=== PATIENT | male | born 1935 | race Caucasian/White ===

== ENCOUNTER 2018-04-06 09:45 | Inpatient (IN) | payer OTHER, MEDICAID ==
[~2018-04-06] VITALS: Ht 180.3 cm; Wt 72.6 kg
[~2018-04-06 09:45] MED LIST: ACET-2619 GT; ASCO500T45 GT; BISA10SU2 RC; COL250 GT; EPOE10002 IJ; FER325 GT; LACT1CAP4 GT; LISI-420 GT; LORA10TA60 GT; MAGN400S GT; NA P135N9 RC; ONDA4TAB GT; PANT40PD1 GT; PROSTAT 64 GT; VIC GT; [UNRECOGNIZED DRUG - CODE] GT; [UNRECOGNIZED DRUG - CODE] GT; [UNRECOGNIZED DRUG - CODE] TP
--- NOTE | 2018-04-06 09:49 | NUR ---
PT BIBA ALS TO BED 10
[2018-04-06 09:50] VITALS: BP 177/79
--- NOTE | 2018-04-06 09:50 | NUR ---
82y/m brought in by ems from [facility]. pt c/o persistant fever x yesterday, tachypnic, FULL CODE, vent setting AC 12 , 450, peep 5, fio2 40%. DENIES N/V/D; SKIN IS PINK/WARM/DRY; AAOX3; PATIENT STATES PAIN OF 0/10 AT THIS TIME; VSS; PATIENT POSITIONED FOR COMFORT; HOB ELEVATED; BEDRAILS UP X2; BED DOWN. ER MD MADE AWARE OF PT STATUS.
[2018-04-06 09:55] VITALS: BP 114/75
--- NOTE | 2018-04-06 09:55 | NUR ---
PT BIB EMS PLACED ON CARESCAPE VENT SETTINGS PER FACILITY PTS TRACH PORTEX 6 IS SECURE RECEIVER STOCKER OBTAINED VENT PLUGGED INTO RED OUTLET BMV HOB PT IN HF QUIET
--- NOTE | 2018-04-06 09:55 | NUR ---
Vent settings: Fio2 39,peep 4, peak pressure 28, minute volume 10.7, tidal volume 47v, respiratory rate 23
[2018-04-06] MEDS ORDERED: LORA-476 GT (10:33)
[2018-04-06] MEDS ORDERED: VITD1000 GT (10:33)
[2018-04-06] MEDS ORDERED: GLIM4TAB2 GT (10:33)
[2018-04-06] MEDS ORDERED: ALPOS LEFT EYE (10:33)
[2018-04-06] MEDS ORDERED: CALC500C17 PO (10:33)
[2018-04-06] MEDS ORDERED: OMEP20EC6 GT (10:33)
[2018-04-06] MEDS ORDERED: METF1000 GT (10:33)
[2018-04-06] MEDS ORDERED: PREG150C GT (10:33)
[2018-04-06] MEDS ORDERED: TRAV5SOL LEFT EYE (10:33)
[2018-04-06] MEDS ORDERED: ASPI81EC98 GT (10:33)
[2018-04-06] MEDS ORDERED: DULO60EC GT (10:33)
[2018-04-06] MEDS ORDERED: FURO-572 GT (10:33)
[2018-04-06] MEDS ORDERED: NITR0.4S23 SL (10:33)
[2018-04-06] MEDS ORDERED: ATEN25TA7 GT (10:33)
[2018-04-06] MEDS ORDERED: MELA5TAB5 GT (10:33)
[2018-04-06] MEDS ORDERED: SLIDE SUBQ (10:33)
[2018-04-06] MEDS ORDERED: MAGN400T7 GT (10:33)
[2018-04-06] MEDS ORDERED: NACL 0.9% 500 ML IV SCH (10:47)
[2018-04-06] MEDS ORDERED: PIPERACILLIN/TAZOBACTAM 3.375 GM in DEXTROSE 5% 50 ML IV ONE (10:50)
[2018-04-06] MEDS ORDERED: ACETAMINOPHEN 650 MG SUPP RC ONE (10:56)
[2018-04-06] MEDS ORDERED: ACETAMINOPHEN 325 MG SUPP RC ONE (10:57)
--- NOTE | 2018-04-06 11:27 | NUR ---
XRAY AT BEDSIDE
[2018-04-06] MEDS ORDERED: PIPERACILLIN/TAZOBACTAM 3.375 GM VIAL IV ONE (11:32)
--- NOTE | 2018-04-06 11:40 | NUR ---
lab at bedside
[2018-04-06] MEDS ORDERED: NACL 0.9% 1,000 ML IV ONE (12:20)
[2018-04-06 12:29] VITALS: BP 52/20
[2018-04-06 12:39] LABS: PROTHROMBIN TIME 11.5 secs (10.8-13.4)
[2018-04-06 12:49] LABS: HEMATOCRIT 40.7 % (36-52); HEMOGLOBIN 12.6 g/dL (12.0-18.0); MEAN CORPUSCULAR HEMOGLOBIN 26 pg (27-31); MEAN CORPUSCULAR HGB CONC 31 g/dL (33-37); MEAN CORPUSCULAR VOLUME 83.2 fL (80-94); PLATELET COUNT (AUTO) 578 K/uL (140-450); RED BLOOD CELL COUNT(AUTO) 4.89 MIL/uL (4.20-6.10); RED CELL DISTRIBUTION WIDTH 18.6 % (11.6-13.7)
[2018-04-06 12:56] LABS: WHITE BLOOD COUNT (AUTO) 35.3 K/uL (4.8-10.8)
--- NOTE | 2018-04-06 12:58 | NUR ---
Patient appears to be resting comfortably in bed. Vital Signs within normal limits. Respirations even and unlabored.
[2018-04-06 13:06] LABS: POTASSIUM 4.7 mmol/L (3.5-5.1); SODIUM SERUM 136 mmol/L (136-145)
[2018-04-06 13:07] LABS: LYMPHOCYTES % (MANUAL) 4 % (20-46); MONOCYTES % (MANUAL) 4 % (5-12)
[2018-04-06 13:07] LABS: ANION GAP 12.3 (8-16); CARBON DIOXIDE 28.4 mmol/L (21-32); CHLORIDE 100 mmol/L (98-107); CREATININE 1.1 mg/dL (0.7-1.3); GLUCOSE 213 mg/dL (74-106); UREA NITROGEN, BLOOD 36 mg/dL (7-18)
[2018-04-06 13:10] LABS: ASPARTATE AMINOTRANSFERASE 7 U/L (15-37)
[2018-04-06 13:11] LABS: ALBUMIN 2.9 g/dL (3.4-5.0)
[2018-04-06 13:26] LABS: TOTAL BILIRUBIN 0.4 mg/dL (0.0-1.0)
[2018-04-06] MEDS ORDERED: ZOLPIDEM 5 MG TAB PO PRN (14:20)
[2018-04-06] MEDS ORDERED: HYDROcodone/APAP 5/325 MG 1 TAB TAB PO PRN (14:20)
[2018-04-06] MEDS ORDERED: DOCUSATE SODIUM 100 MG GELCAP PO PRN (14:20)
[2018-04-06] MEDS ORDERED: ACETAMINOPHEN 325 MG TAB PO PRN (14:20)
[2018-04-06] MEDS ORDERED: ONDANSETRON 4 MG/2 ML VIAL IM/IVP PRN (14:20)
--- NOTE | 2018-04-06 14:21 | NUR ---
Patient appears to be resting comfortably in bed. Vital Signs within normal limits. Respirations even and unlabored.
[2018-04-06 14:28] LABS: APPEARANCE,URINE CLEAR (CLEAR); BILIRUBIN,URINE NEGATIVE (NEGATIVE); BLOOD, URINE TRACE-I (NEGATIVE); COLOR,URINE YELLOW (YELLOW); LEUKOCYTE ESTERASE ,URINE NEGATIVE (NEGATIVE); NITRITE, URINE NEGATIVE (NEGATIVE); UGLUCOSE NEGATIVE (NEGATIVE)
[2018-04-06 14:43] LABS: RBC,URINE 0-5 (RARE) /HPF (0-5); WBC,URINE NONE SEEN /HPF (0-5)
[2018-04-06 14:47] VITALS: BP 110/42
[2018-04-06] MEDS ORDERED: ACETAMINOPHEN 325 MG TAB GT PRN (15:30)
--- NOTE | 2018-04-06 17:00 | NUR ---
Patient will be admitted to care of . Admited to tele floor. Will go to [id number]. Belongings list completed. Report to merritt amrina.
[2018-04-06 17:11] LABS: CHOL/HDL RATIO 2.5 (1-4.5); MAGNESIUM 2.7 mg/dL (1.8-2.4); PHOSPHORUS 2.5 mg/dL (2.5-4.9); THYROID STIMULATING HORMONE 3.86 uIU/mL (0.34-3.74)
[2018-04-06 17:15] VITALS: BP 134/76
--- NOTE | 2018-04-06 17:20 | NUR ---
RECEIVED PT REPORT FROM ER NURSE. DX SEVERE SEPSIS. LATEST LACTIC ACID 2.8. PT IS WITH TRACH TO VENT, SETTING FIO2 40%, RR12, TV 450, PEEP 5. O2 SAT 98%. PLACE PT ON TELE MONITOR. NO S/S ACUTE DISTRESS NOTED AT THIS TIME. PT IS AWAKE,ALERT AND ORIENTED X3. NON-VERBAL. IV NOTED TO R AC 20G, ASYMPTOMATIC. SKIN INTACT. VITALS TAKEN, MRSA SWAB DONE. PLAN OF CARE DISCUSSED. BED IN LOWEST POSITION, SIDE RAILS UP X2. CALL LIGHT WITHIN REACH. WILL CONTINUE TO MONITOR.
[2018-04-06] MEDS: NACL 0.9% 1,000 ML IV SCH (17:40)
--- NOTE | 2018-04-06 17:55 | NUR ---
PT IS ABLE TO MOVE ALL EXTREMITIES. PT CAN FOLLOW SIMPLE COMMANDS. PT HAD BLACK, DARK GREEN LIQUID STOOL. PT WAS CLEANED. PT TOLERATE WELL.
[2018-04-06] MEDS: HYDROcodone/APAP 5/325 MG 1 TAB TAB GT PRN (18:18)
--- NOTE | 2018-04-06 18:18 | NUR ---
CALLED THE RESIDENT, ASKING IF C-DIFF CULTURE IS NEEDED FOR THE PT. STATED JUST STOOL CULTURE. Addendum: 04/06/18 at 2002 by Placido Cazares RN DR ONOFRE.
--- NOTE | 2018-04-06 18:20 | NUR ---
G TUBE RESIDUAL 0ML. NORCO GIVEN, FLUSHED WITH 30 ML H2O PT TOLERATED WELL.
--- NOTE | 2018-04-06 19:13 | NUR ---
RECEIVED PT REPORT FROM ER NURSE. DX SEVERE SEPSIS. LATEST LACTIC ACID 2.8. PT IS WITH TRACH TO VENT, SETTING FIO2 40%, RR12, TV 450, PEEP 5. O2 SAT 98%. PLACE PT ON TELE MONITOR. NO S/S ACUTE DISTRESS NOTED AT THIS TIME. PT IS AWAKE,ALERT AND ORIENTED X3. NON-VERBAL. IV NOTED TO R AC 20G, ASYMPTOMATIC. SKIN INTACT. VITALS TAKEN, MRSA SWAB DONE. PLAN OF CARE DISCUSSED. BED IN LOWEST POSITION, SIDE RAILS UP X2. CALL LIGHT WITHIN REACH. WILL CONTINUE TO MONITOR. Addendum: 04/06/18 at 1915 by Placido Cazares RN PLEASE DISCARD, WRONG TIME.
--- NOTE | 2018-04-06 19:25 | NUR ---
ENDORSED PT TO MARINE DRAFTER RNEMILIANO. PT IN STABLE CONDITION.
--- NOTE | 2018-04-06 19:26 | NUR ---
RECEIVED PT FROM LUCY RN PT NICARAGUAN SPEAKER AAOX2 PT FOLLOW SIMPLE COMMANDAS TRACH TO VENT DEPENDENT FIO2 40% RR 12 TV 450 PEEP 5 NOT RESP DISTRESS NOTED RESP THERAPY IS HERE AND SUCTION THE PT G TUBE RESIDUAL ZERO G TUBE FEEDING WELL TOLERATED ON TELEMETRY SR, SEQUENTIAL STOCKING IV ON RT AC INFUSING WELL ON TELEMTRY SR PT REPOSITIONED NOT DISTRESS NOTED AT THIS TIME
--- NOTE | 2018-04-06 19:40 | NUR ---
RECEIVED PT STABLE ON VENT SUPPORT AT DOCUMENTED SETTINGS, SUCTIONED SMALL AMOUNTS OF THICK PANG SECRETIONS, NO RESP DISTRESS OR SOB NOTED AT THIS TIME, PT CAN RESPOND TO COMMANDS AND COMFORTABLE, PORTEX 6 TRACH SECURED/PATENT/MIDLINE, ALARMS SET AND AUDIBLE, AMBU BAG AT BEDSIDE, VENT PLUGGED INTO RED OUTLET, PULSE OX ON, WILL CONT TO MONITOR.
[2018-04-06 20:00] VITALS: BP 92/46
[2018-04-06] MEDS: BLOOD GLUCOSE MONITORING 1 DEV DEV FS SCH (20:32)
[2018-04-06] MEDS: INSULIN LISPRO SLIDING SCALE 100 UNITS/ML VIAL SUBQ PRN (20:33)
[2018-04-06] MEDS ORDERED: PIPERACILLIN/TAZOBACTAM 3.375 GM in DEXTROSE 5% 50 ML IV SCH (21:00)
--- NOTE | 2018-04-06 21:00 | NUR ---
PT REPOSITIONED Q2H LINEN CHANGED PT HAS A BM BLACK STOOL NOT DISTRESS NOTED AND RESP THERAPY IS HERE AND DECREASE FIO2 AT 35%
[2018-04-06] MEDS: PIPER/TAZO 3.375GM/D5W PREMIX 50 ML IV SCH (21:01)
[2018-04-06] MEDS: PREGABALIN 50 MG CAP GT SCH (21:02)
[2018-04-06] MEDS: BRIMONIDINE TARTRATE 0.2% OP 5 ML BTL BOTH EYES SCH (21:03)
[2018-04-06] MEDS: metFORMIN 500 MG TAB GT SCH (21:04)
[2018-04-07] VITALS: BP 105/53
--- NOTE | 2018-04-07 | NUR ---
HOB 30 DEGREE PT ON CLOSE OBSERVATION REPOSIONED Q2H TRACH TO VENT FIO2 35% NOT SOB NOTED ON TELE SR
[2018-04-07] MEDS: NACL 0.9% 1,000 ML IV SCH ×3 (01:01→16:19)
--- NOTE | 2018-04-07 01:06 | NUR ---
PT SLEEPING QUIET TRACH TO CONNOR REMAIN SAME SETTING NOT DISTRESS NOTED 02 SAT 98
[2018-04-07 04:00] VITALS: BP 104/58
--- NOTE | 2018-04-07 04:00 | NUR ---
HOB 30 DEGREE TRACH TO VENT REMAIN SAME SETTING SUCTIONED NECESSASRY ORAL CARE GIVEN WITH VAP KIT ON TELEMETRY SR PT HAS G TUBE FEEDING WELL TOLERATED PT HAS A BIG BM SPONGE BATH GIVEN
[2018-04-07] MEDS: PIPER/TAZO 3.375GM/D5W PREMIX 50 ML IV SCH ×3 (04:27→21:13)
[2018-04-07] MEDS: HYDROcodone/APAP 5/325 MG 1 TAB TAB GT PRN ×3 (04:27→16:28)
[2018-04-07] MEDS: BRIMONIDINE TARTRATE 0.2% OP 5 ML BTL BOTH EYES SCH ×3 (04:54→21:01)
--- NOTE | 2018-04-07 05:08 | NUR ---
PT REPOSITIONED Q2H TRACH TO VENT REMAIN SAME SETTING ON TELEMETRY SR IV ON RT AC INFUSING WELL
[2018-04-07] MEDS: INSULIN LISPRO SLIDING SCALE 100 UNITS/ML VIAL SUBQ PRN ×3 (05:59→21:15)
[2018-04-07] MEDS: BLOOD GLUCOSE MONITORING 1 DEV DEV FS SCH ×4 (06:01→21:01)
--- NOTE | 2018-04-07 06:08 | NUR ---
BLOOD SUGAR TEST 190 CVERAGE WITH 2 UNITS SUBQ HUMALOG PRTOCOL
--- NOTE | 2018-04-07 06:23 | NUR ---
PT REMAIN STABLE NOT DISTRESS NOTED TRACH TO VENT REMAIN SAME SETTING ON TELEMETRY SR REPOSITIONED Q2H G TUBE FEEDING WELL TOLERATED
--- NOTE | 2018-04-07 06:24 | NUR ---
REC'D PT ON CARESCAPE VENT SETTINGS AC 12 VT 450 PEEP 5 FIO2 35% ALARMS ON AND AUDIBLE AND AMBU BAG AT HOB AND VENT IS PLUGGED INTO RED OUTLET, NO HHN NEEDED AT THIS TIME, SXN PT MODERATE AMT OF THICK YELLOW SECRETIONS, B\S ARE CLEAR BILATERALLY, PT IS TRACH WITH PORTEX 6 AND SKIN INTEGRITY IS INTACT PT IS SLEEPING WITH NO SIGNS OF DISTRESS NOTED AT THIS TIME
[2018-04-07 07:20] LABS: CARBON DIOXIDE 24.2 mmol/L (21-32); CHLORIDE 107 mmol/L (98-107); CREATININE 0.9 mg/dL (0.7-1.3); GLUCOSE 198 mg/dL (74-106); POTASSIUM 4.2 mmol/L (3.5-5.1); SODIUM SERUM 142 mmol/L (136-145); UREA NITROGEN, BLOOD 32 mg/dL (7-18)
--- NOTE | 2018-04-07 07:20 | NUR ---
PT IS SLEEPING SOUNDLY. NO SIGNS OF DISTRESS. TRACH TO VENT DEP. VENT SETTING: FIO2 35%, VT 450, RATE 12, FLOW 50ML; PEEP 5. PT'S BREATHING IS AT 19/MIN. GTUBE FEEDING INFUSING. GLUCERNA 1.2 40ML/HR, H2O AT 100ML Q [address] PL[address] LIGHT CHARLES URINE, 200ML IN BAG. IV R AC 20G NS AT 120ML INFUSING. SCD'S IN PLACE. PER DAIRY SPECIALIST NURSE, SKIN IS INTACT. HAD LAST BM THIS MORNING X2 LARGE- BLACK STOOL. PER DAIRY SPECIALIST NURSE, PT IS ABLE TO MOUTH WORDS IN [place]. WILL BE BACK FOR V/S.
--- NOTE | 2018-04-07 07:45 | NUR ---
PT IS AWAKE AND ORIENTED. INTRODUCED MYSELF AND UPDATED THE BOARD. V/S WITHIN NORMAL RANGE. PT C/O GENERALIZED PAIN. WOULD LIKE PAIN MEDS ALONG WITH MORNING MEDS. PER NUTRITION INSTRUCTOR NURSE, LAST [place] WAS AT 0427. WILL CONTINUE TO MONITOR PT.
[2018-04-07 08:00] VITALS: BP 110/55
--- NOTE | 2018-04-07 08:00 | NUR ---
Patient's Plan of Care was discussed and reviewed with SAWMILL OR TIMBER YARD WORKER: TANIA
--- NOTE | 2018-04-07 08:42 | NUR ---
PATIENT HAS BEEN SCREENED AND CATEGORIZED HIGH NUTRITION RISK. PATIENT WILL BE SEEN WITHIN 1-2 DAYS OF ADMISSION. 04/07/18 04/08/[address]
--- NOTE | 2018-04-07 08:58 | NUR ---
VENT CHECK, AIRWAY IS PATENT AND PT IS SLEEPING
[2018-04-07] MEDS: PREGABALIN 50 MG CAP GT SCH ×2 (09:16→21:01)
[2018-04-07] MEDS: LACTOBACILLUS RHAMNOSUS GG 1 EACH CAP GT SCH (09:16)
[2018-04-07] MEDS: ASPIRIN 81 MG TAB.CHEW GT SCH (09:17)
[2018-04-07] MEDS: ATENOLOL 25 MG TAB GT SCH (09:17)
[2018-04-07] MEDS: PANTOPRAZOLE 40 MG INJ VIAL IV SCH (09:18)
[2018-04-07] MEDS: GLIMEPIRIDE 2 MG TAB GT SCH (09:18)
[2018-04-07] MEDS: FUROSEMIDE 40 MG/5 ML ORAL SOL UDC GT SCH (09:20)
[2018-04-07] MEDS: metFORMIN 500 MG TAB GT SCH ×2 (09:24→22:06)
--- NOTE | 2018-04-07 09:48 | NUR ---
PT SOILED. VERY LITTLE BM. NOT ENOUGH FOR C-DIFF SAMPLE. CLEANED AND CHANGED AND REPOSITIONED WITH COAL PIPELINE OPERATOR. PT IS CLEAN AND DRY AND COMFORTABLE. ADMINISTERED MORNING MEDS. CHECKED FOR PLACEMENT, RESIDUAL-0, AND PATENCY. TOLERATED WELL. TOTAL FLUID IN 180ML. WILL CONTINUE TO MONITOR PT.
--- NOTE | 2018-04-07 10:33 | NUR ---
vent check, no sxn needed airway is patent and pt is sleeping
[2018-04-07 12:00] VITALS: BP 95/48
--- NOTE | 2018-04-07 12:30 | NUR ---
TROUBLE SHOOTER RECOMMENDATION: INCREASE FEEDING GRADUALLY TO 70ML/HR. WILL NOTIFY
[2018-04-07 12:55] LABS: BASOPHILS % (AUTO) 0.2 % (0.0-2.0); EOSINOPHILS # (AUTO) 0.2 K/uL (0-0.4); EOSINOPHILS % (AUTO) 0.9 % (0.0-4.0); HEMATOCRIT 31.7 % (36-52); HEMOGLOBIN 9.8 g/dL (12.0-18.0); LYMPHOCYTES # (AUTO) 1.5 K/uL (2.0-11.5); LYMPHOCYTES % (AUTO) 7.9 % (20.5-51.1); MEAN CORPUSCULAR HEMOGLOBIN 25 pg (27-31); MEAN CORPUSCULAR HGB CONC 31 g/dL (33-37); MEAN CORPUSCULAR VOLUME 82.4 fL (80-94); MONOCYTES # (AUTO) 0.9 K/uL (0.8-1.0); NEUTROPHILS # (AUTO) 16.1 K/uL (1.8-7.7); PLATELET COUNT (AUTO) 401 K/uL (140-450); RED BLOOD CELL COUNT(AUTO) 3.85 MIL/uL (4.20-6.10); RED CELL DISTRIBUTION WIDTH 18.2 % (11.6-13.7); WHITE BLOOD COUNT (AUTO) 18.7 K/uL (4.8-10.8)
--- NOTE | 2018-04-07 14:06 | NUR ---
04/07/18 RD INITIAL ASSESSMENT COMPLETED PLEASE REFER TO NUTRITION ASSESSMENT UNDER CARE ACTIVITY FOR ESTIMATED NUTRITIONAL NEEDS. 1. RECOMMEND INCREASING GLUCERNA TO 70 ML/HR BY 10 ML/HR Q6H. -THIS PROVIDES 1666 ML, 2000 KCAL, 100 GM, MEETING 100% OF ESTIMATED KCAL NEEDS AND 85% OF PROTEIN NEEDS. 2. RECOMMEND WATER FLUSH [address] TO FOLLOW-UP 2-3 DAYS, HIGH RISK DIDIER ALMODOVAR RD
--- NOTE | 2018-04-07 14:21 | NUR ---
SON AND DAUGHTER IN LAW IS HERE FOR VISIT. O2 SAT DOWN TO 88%. SUCTIONED PT. NOW BACK TO 100%. WILL CONTINUE TO MONITOR PT. Addendum: 04/07/18 at 1424 by Lisa Oleary RN INCREASE FEEDING 10ML.
--- NOTE | 2018-04-07 15:09 | NUR ---
PT SLEEPING SOUNDLY. SON AND DAUGHTER IN LAW LEFT. NO SIGNS OF DISTRESS. WILL CONTINUE TO MONITOR PT.
--- NOTE | 2018-04-07 15:32 | NUR ---
VENT CHECK, NO SXN REQUIRED PT GETTING BATH
[2018-04-07 16:00] VITALS: BP 101/50
--- NOTE | 2018-04-07 16:43 | NUR ---
VENT CHECK, NO SXN NEEDED AIRWAY IS PATENT PT WOULD NOT ALLOW TRACH CARE TO BE DONE WAS HITTING MY HAND AWAY FROM HIM
--- NOTE | 2018-04-07 17:04 | NUR ---
PT SLEEPING SOUNDLY. NO SIGNS OF DISTRESS. WILL CONTINUE TO MONITOR PT.
[2018-04-07] MEDS: MUPIROCIN 2% OINT 22 GM TUBE TP SCH (18:58)
[2018-04-07] MEDS: CHLORHEXADINE GLUC 2% CLOTH TP SCH (18:59)
--- NOTE | 2018-04-07 18:59 | NUR ---
ADMINISTERED BACTROBAN AND CHG WIPE. BACTROBAN JUST ARRIVED ON THE FLOOR. PT TOLERATED WELL. WILL CONTINUE TO MONITOR PT.
--- NOTE | 2018-04-07 19:17 | NUR ---
ENDORSED PT TO THE PROJECT SCIENTIST NURSE AT BEDSIDE FOR CONTINUITY OF CARE. PT IS IN STABLE CONDITION. R/T AT BEDSIDE.
[2018-04-07 20:00] VITALS: BP 110/66
--- NOTE | 2018-04-07 20:00 | NUR ---
SEEN PT AWAKE, ALERT, ORIENTED, APHASIC BY MOUTHS WORDS. PT ABLE TO RESPOND BY NODDING AND SMILING TO CONVERSATION. INITIAL ASSESSMENT DONE. VITAL SIGNS CHECKED. PT APPEARS NOT TO BE IN DISTRESS. PT REPOSITIONED FOR COMFORT. SAFETY REINFORCED. PT ON ISOLATION.
--- NOTE | 2018-04-07 21:00 | NUR ---
PT'S IV APPEARS RED BUT FLUSHING. NEW IV IN PLACED ON RT HAND G22 W/ GOOD BLOOD RETURN. IVF RESUMED ORDERED.
--- NOTE | 2018-04-07 22:15 | NUR ---
PT HAD A LARGE, BLACK LOOSE BM. PERICARE RENDERED. PT REPOSITIONED FOR COMFORT. PT SUCTIONS HIMSELF ALL THE TIME.
[2018-04-08] VITALS (7 sets, daily range): BP systolic 96–115; BP diastolic 47–69
--- NOTE | 2018-04-08 00:15 | NUR ---
SEEN PT AWAKE. VITAL SIGNS CHECKED. PT ASKING FOR NORCO. WILL MEDICATE FOR PAIN ORDERED. PT IS DRY. PT REPOSITIONED FOR COMFORT.
[2018-04-08] MEDS: HYDROcodone/APAP 5/325 MG 1 TAB TAB GT PRN ×7 (00:18→23:35)
--- NOTE | 2018-04-08 03:06 | NUR ---
HEARD PT TAPPING THE YANKEUR. SEEN PT AND MOUTHING WORD "NORCO". WILL MEDICATE ORDERED. VITAL SIGNS CHECKED. PT REPOSITIONED FOR COMFORT.
[2018-04-08] MEDS: PIPER/TAZO 3.375GM/D5W PREMIX 50 ML IV SCH ×3 (04:24→21:35)
[2018-04-08] MEDS: BRIMONIDINE TARTRATE 0.2% OP 5 ML BTL BOTH EYES SCH ×3 (04:25→21:35)
--- NOTE | 2018-04-08 04:25 | NUR ---
SEEN PT AWAKE, ASKING FOR NORCO. INFORMED HIM ITS NOT TIME YET. MEDICATIONS DUE GIVEN ORDERED. TEACHINGS PROVIDED. WILL CONTINUE TO MONITOR.
--- NOTE | 2018-04-08 06:05 | NUR ---
PT HAD LARGE, BLACK, LOOSE BM. PERICARE RENDERED. PT REPOSITIONED FRO COMFORT. NO RESIDUAL NOTED ON GTUBE. PT ASKING FOR PAIN MEDICINE.
[2018-04-08] MEDS: NACL 0.9% 1,000 ML IV SCH ×3 (06:22→18:30)
[2018-04-08] MEDS: BLOOD GLUCOSE MONITORING 1 DEV DEV FS SCH ×4 (06:26→21:35)
--- NOTE | 2018-04-08 06:30 | NUR ---
PT MEDICATED W/ NORCO ORDERED W/ TEACHINGS. BLOOD SUGAR CHECKED:169. PT GIVEN 2UNITS LISPRO PER SLIDING SCALE. PT REPOSITIONED FOR COMFORT.
[2018-04-08] MEDS: INSULIN LISPRO SLIDING SCALE 100 UNITS/ML VIAL SUBQ PRN ×2 (06:34→12:31)
--- NOTE | 2018-04-08 07:05 | NUR ---
WILL ENDORSE CARE TO DAYSHIFT NURSE.
--- NOTE | 2018-04-08 07:10 | NUR ---
RECEIVED PATIENT REPORT AT BEDSIDE. PATIENT ASLEEP BUT AROUSABLE. NO S/S OF DISTRESS. PATIENT WITH TRACH TO VENT. FIO2 35% O2 SAT 100% AT THIS TIME. G-TUBE IN PLACE WITH FEEDING RUNNING. HILLIARD CATHETER IN PLACE, DRAINING CLEAR YELLOW URINE. PATIENT ON TELE MONITORING. BED LOWERED WITH CALL LIGHT WITHIN REACH. WILL CONTINUE TO MONITOR
[2018-04-08 07:19] LABS: HEMATOCRIT 30.6 % (36-52); HEMOGLOBIN 9.5 g/dL (12.0-18.0); LYMPHOCYTES # (AUTO) 1.7 K/uL (2.0-11.5); NEUTROPHILS # (AUTO) 10.9 K/uL (1.8-7.7)
[2018-04-08 07:31] LABS: BASOPHILS % (AUTO) 0.2 % (0.0-2.0); EOSINOPHILS # (AUTO) 0.4 K/uL (0-0.4); EOSINOPHILS % (AUTO) 2.6 % (0.0-4.0); LYMPHOCYTES % (AUTO) 12.1 % (20.5-51.1); MEAN CORPUSCULAR HEMOGLOBIN 26 pg (27-31); MEAN CORPUSCULAR HGB CONC 31 g/dL (33-37); MEAN CORPUSCULAR VOLUME 82.4 fL (80-94); MONOCYTES % (AUTO) 7.1 % (1.7-9.3); PLATELET COUNT (AUTO) 373 K/uL (140-450); RED BLOOD CELL COUNT(AUTO) 3.71 MIL/uL (4.20-6.10); RED CELL DISTRIBUTION WIDTH 17.9 % (11.6-13.7)
[2018-04-08 07:46] LABS: CARBON DIOXIDE 25.7 mmol/L (21-32); CHLORIDE 105 mmol/L (98-107); CREATININE 0.9 mg/dL (0.7-1.3); GLUCOSE 174 mg/dL (74-106); POTASSIUM 3.7 mmol/L (3.5-5.1); SODIUM SERUM 137 mmol/L (136-145); UREA NITROGEN, BLOOD 24 mg/dL (7-18)
--- NOTE | 2018-04-08 07:47 | NUR ---
RCV'D PT ON MECHANICAL VENTILATION WITH CHARTED SETTINGS. PT IS TRACHED WITH PORTEX 6 TRACH. NO SOB OR DISTRESS NOTED. VENT CONNECTED TO RED OUTLET. ALARMS AUDIBLE. AMBU BAG AT BEDSIDE. WILL CONTINUE TO MONITOR.
[2018-04-08] MEDS: GLIMEPIRIDE 2 MG TAB GT SCH (08:33)
[2018-04-08] MEDS: PREGABALIN 50 MG CAP GT SCH ×2 (08:33→21:35)
[2018-04-08] MEDS: CALCIUM ACETATE 667 MG TAB PO SCH ×2 (08:33→16:56)
[2018-04-08] MEDS: metFORMIN 500 MG TAB GT SCH ×2 (08:33→21:35)
--- NOTE | 2018-04-08 08:33 | NUR ---
ADMINISTERED PO MEDS VIA G-TUBE. NO RESIDUALS NOTED. PATIENT TOLERATED WELL
[2018-04-08] MEDS: FUROSEMIDE 40 MG/5 ML ORAL SOL UDC GT SCH (08:34)
[2018-04-08] MEDS: ASPIRIN 81 MG TAB.CHEW GT SCH (08:34)
[2018-04-08] MEDS: PANTOPRAZOLE 40 MG INJ VIAL IV SCH (08:34)
[2018-04-08] MEDS: LACTOBACILLUS RHAMNOSUS GG 1 EACH CAP GT SCH (08:34)
[2018-04-08] MEDS: ATENOLOL 25 MG TAB GT SCH (09:00)
--- NOTE | 2018-04-08 10:17 | NUR ---
PATIENT GIVEN BED BATH. PATIENT TURNED AND REPOSITIONED FOR COMFORT. PATIENT TOLERATED WELL
--- NOTE | 2018-04-08 13:19 | NUR ---
PT IS SLEEPING. NO SIGNS OF DISTRESS. IVF AND FEEDING INFUSING. WILL CONTINUE TO MONITOR PT.
--- NOTE | 2018-04-08 14:05 | NUR ---
PATIENT HAD BM. STOOL BLACK, PASTY AND MODERATED IN AMOUNT. PATIENT CLEANED AND REPOSITIONED FOR COMFORT. WILL CONTINUE TO MONITOR
--- NOTE | 2018-04-08 14:30 | NUR ---
MADE DR PRADHAN ABOUT THE PATIENT'S STOOL COLOR
--- NOTE | 2018-04-08 14:37 | NUR ---
PATIENT ASLEEP IN BED. NO S/S OF DISTRESS NOTED
--- NOTE | 2018-04-08 16:45 | NUR ---
PATIENT HAD ANOTHER BM. STOOL BLACK, LOOSE AND SMALL IN AMOUNT. OCCULT BLOOD SAMPLE OBTAINED. PATIENT CLEANED AND REPOSITIONED FOR COMFORT. WILL CONTINUE TO MONITOR
[2018-04-08] MEDS: MUPIROCIN 2% OINT 22 GM TUBE TP SCH (16:56)
[2018-04-08] MEDS ORDERED: NOREPINEPHRINE 4 MG/4 ML VIAL IV ONE (17:58)
[2018-04-08] MEDS: CHLORHEXADINE GLUC 2% CLOTH TP SCH (18:24)
--- NOTE | 2018-04-08 19:36 | NUR ---
PATIENT REPORT GIVEN AT BEDSIDE. PATIENT ENDORSED IN STABLE CONDITION
--- NOTE | 2018-04-08 19:37 | NUR ---
RECEIVED REPORT FROM DAY SHIFT RN FOR CONTINUITY OF CARE. PT IS APHASIC, ON TRACH TO VENT. PT IS ABLE TO MAKE NEEDS KNOWN, ABLE TO FOLLOW COMMANDS. RESPIRATIONS EVEN AND UNLABORED AT THE MOMENT. PT SKIN IS INTACT. PT HAS 22G IV TO RIGHT HAND AND 20G IV TO RIGHT AC, BOTH ASYMPTOMATIC, INTACT AND PATENT. PT IS BEDBOUND. VITAL SIGNS WITHIN NORMAL LIMITS. PT STABLE, NO SIGNS OF DISTRESS NOTED AT THIS TIME. BED IN LOWEST POSITION, BED ALARM ON. CALL LIGHT WITHIN REACH, WILL CONTINUE TO MONITOR.
[2018-04-08] MEDS: DEXT 5% / NACL 0.45% 1,000 ML IV SCH (21:35)
--- NOTE | 2018-04-08 21:40 | NUR ---
ADMINISTERED SCHEDULED MEDICATIONS ORDERED, NO RESIDUAL NOTED, PATIENT TOLERATED MED ADMINISTRATION WELL. FLUSHED WITH 50ML WATER. NO INSULIN COVERAGE NEEDED FOR BLOOD SUGAR 117.
--- NOTE | 2018-04-08 23:35 | NUR ---
ADMINISTERED NORCO PER PRN ORDER FOR PAIN 6/10 TO LOWER BACK, PT TOLERATED WELL. FLUSHED WITH 50ML WATER.
[2018-04-09] VITALS: BP 113/66
--- NOTE | 2018-04-09 | NUR ---
VITAL SIGNS WITHIN NORMAL LIMITS. PT STABLE, NO SIGNS OF DISTRESS NOTED AT THIS TIME. BED IN LOWEST POSITION, BED ALARM ON. CALL LIGHT WITHIN REACH, WILL CONTINUE TO MONITOR.
[2018-04-09] MEDS: HYDROcodone/APAP 5/325 MG 1 TAB TAB GT PRN ×5 (03:59→22:06)
[2018-04-09 04:00] VITALS: BP 111/65
[2018-04-09] MEDS: PIPER/TAZO 3.375GM/D5W PREMIX 50 ML IV SCH ×3 (04:41→21:10)
[2018-04-09] MEDS: BRIMONIDINE TARTRATE 0.2% OP 5 ML BTL BOTH EYES SCH ×3 (04:41→21:11)
[2018-04-09] MEDS: BLOOD GLUCOSE MONITORING 1 DEV DEV FS SCH ×4 (06:36→20:19)
--- NOTE | 2018-04-09 07:10 | NUR ---
RECEIVED PATIENT REPORT AT BEDSIDE. PATIENT ASLEEP BUT AROUSABLE. NO S/S OF DISTRESS. PATIENT WITH TRACH TO VENT. FIO2 28% O2 SAT 99% AT THIS TIME. G-TUBE IN PLACE. TUBE FEEDING ON HOLD. HILLIARD CATHETER IN PLACE, DRAINING CLEAR YELLOW URINE. PATIENT ON TELE MONITORING. BED LOWERED WITH CALL LIGHT WITHIN REACH. WILL CONTINUE TO MONITOR
[2018-04-09 07:15] LABS: BASOPHILS % (AUTO) 0.2 % (0.0-2.0); EOSINOPHILS # (AUTO) 0.4 K/uL (0-0.4); EOSINOPHILS % (AUTO) 4.6 % (0.0-4.0); HEMOGLOBIN 8.9 g/dL (12.0-18.0); LYMPHOCYTES # (AUTO) 1.4 K/uL (2.0-11.5); LYMPHOCYTES % (AUTO) 14.7 % (20.5-51.1); MEAN CORPUSCULAR HEMOGLOBIN 26 pg (27-31); MEAN CORPUSCULAR HGB CONC 32 g/dL (33-37); MEAN CORPUSCULAR VOLUME 81.7 fL (80-94); MONOCYTES # (AUTO) 0.8 K/uL (0.8-1.0); MONOCYTES % (AUTO) 8.3 % (1.7-9.3); NEUTROPHILS # (AUTO) 6.8 K/uL (1.8-7.7); NEUTROPHILS % (AUTO) 72.2 % (42.2-75.2); PLATELET COUNT (AUTO) 320 K/uL (140-450); RED BLOOD CELL COUNT(AUTO) 3.43 MIL/uL (4.20-6.10); RED CELL DISTRIBUTION WIDTH 17.6 % (11.6-13.7); WHITE BLOOD COUNT (AUTO) 9.4 K/uL (4.8-10.8)
--- NOTE | 2018-04-09 07:15 | NUR ---
ENDORSED PT TO DAY SHIFT RN FOR CONTINUITY OF CARE. PT IN STABLE CONDITION.
--- NOTE | 2018-04-09 07:40 | NUR ---
RECEIVED ON A [employer] CARESCAPE R860 VENTILATOR PLUGGED INTO RED OUTLET TOLERATING WELL WITHOUT ADVERSE REACTIONS NOTED TO A PORTEX FEN #6 AIRWAY SECURED WITH A JANY TRACH TIE CUFF PRESSURE CHECKED NOTED AMBU BAG AT BEDSIDE LOC AWAKE AND ALERT RESPONSIVE "MOUTHING WORDS" BREATH SOUNDS RHONCHI BILATERAL WITH GOOD CHEST RISE DEEP TRACHEAL SUCTION FOR SMALL THICK PANG SECRETIONS AIRWAY PATENT Addendum: 04/09/18 at 0807 by Landon Golden RT NAYANA VÁZQUEZ CONTINUOS PULSE OXIMETER AT BEDSIDE ON AND FUNCTIONING WELL LOW SATURATION ALARM SET AT 92%
[2018-04-09 07:43] LABS: ANION GAP 10.1 (8-16); CARBON DIOXIDE 26.3 mmol/L (21-32); CHLORIDE 105 mmol/L (98-107); CREATININE 0.7 mg/dL (0.7-1.3); GLUCOSE 135 mg/dL (74-106); POTASSIUM 3.4 mmol/L (3.5-5.1); SODIUM SERUM 138 mmol/L (136-145); UREA NITROGEN, BLOOD 17 mg/dL (7-18)
[2018-04-09 07:56] VITALS: BP 113/54
[2018-04-09] MEDS: CALCIUM ACETATE 667 MG TAB PO SCH ×2 (08:00→17:52)
[2018-04-09] MEDS: GLIMEPIRIDE 2 MG TAB GT SCH (08:06)
[2018-04-09] MEDS: PREGABALIN 50 MG CAP GT SCH ×2 (08:06→21:11)
[2018-04-09] MEDS: LACTOBACILLUS RHAMNOSUS GG 1 EACH CAP GT SCH (08:06)
[2018-04-09] MEDS: ASPIRIN 81 MG TAB.CHEW GT SCH (08:06)
[2018-04-09] MEDS: metFORMIN 500 MG TAB GT SCH ×2 (08:07→21:10)
[2018-04-09] MEDS: PANTOPRAZOLE 40 MG INJ VIAL IV SCH (08:07)
[2018-04-09] MEDS: FUROSEMIDE 40 MG/5 ML ORAL SOL UDC GT SCH (08:07)
[2018-04-09] MEDS: ATENOLOL 25 MG TAB GT SCH (09:00)
[2018-04-09] MEDS ORDERED: POTASSIUM CHLORIDE 20% 40 MEQ/15 ML UDC GT SCH (10:00)
--- NOTE | 2018-04-09 10:15 | NUR ---
PATIENT HAD BM. STOOL LOOSE, BLACK AND SMALL IN AMOUNT. PATIENT CLEANED AND REPOSITIONED FOR COMFORT. WILL CONTINUE TO MONITOR
[2018-04-09] MEDS: ALBUTEROL SULFATE/IPRATROPIU 3 ML SOL IH PRN ×3 (10:57→23:16)
--- NOTE | 2018-04-09 10:57 | NUR ---
PRESENTING WITH INCREASED SOB SHALLOW CHEST RISE BREATH SOUNDS COARSE RHONCHI BILATERAL DEEP TRACHEAL SUCTION REQUIRED PATIENT DISCONNECTED INLINE SUCTION CATHETER TO TRACH USING STERILE TECHNIQUE INSERTED 10FR SUCTION CATHETER X2 OBTAINED LARGE THIN YELLOW SECRETIONS AIRWAY PATENT PATIENT RECONNECTED VENTILATOR/INLINE SUCTION CATHETER TO TRACH Addendum: 04/09/18 at 1119 by Landon Golden RT TOLERATED PROCEDURE WELL WITHOUT COMPLICATIONS
--- NOTE | 2018-04-09 11:35 | NUR ---
PATIENT ASLEEP IN BED. NO S/S OF DISTRESS NOTED
[2018-04-09 12:00] VITALS: BP 101/64
[2018-04-09] MEDS: DEXT 5% / NACL 0.45% 1,000 ML IV SCH (12:18)
[2018-04-09] MEDS: MUPIROCIN 2% OINT 22 GM TUBE TP SCH (12:21)
[2018-04-09] MEDS: INSULIN LISPRO SLIDING SCALE 100 UNITS/ML VIAL SUBQ PRN (13:38)
--- NOTE | 2018-04-09 13:45 | NUR ---
NO DISTRESS NOTED GOOD CHEST RISE
--- NOTE | 2018-04-09 14:30 | NUR ---
PATIENT TURNED AND REPOSITIONED FOR COMFORT. PATIENT TOLERATED WELL. ORAL CARE GIVEN
--- NOTE | 2018-04-09 15:26 | NUR ---
PATIENT PRESENTING WITH INTERMITTENT PAEKA PRESSURE 0F [id number] AND BREATH SOUNDS OF EXP WHEEZE AND RHONCHI BILATERAL DEEP TRACHEAL SUCTION WITH A 10FR SUCTION CATHETER X2 FOR MODERATE THICK PANG SECRETIONS HHN PRN THERAPY GIVEN AT THIS TIME FOLLOWED BY TRACH CARE
[2018-04-09 16:00] VITALS: BP 100/54
--- NOTE | 2018-04-09 16:30 | NUR ---
PATIENT HAD A SMALL BM. STOOL SMALL, LOOSE AND BLACK. PATIENT CLEANED AND REPOSITIONED FOR COMFORT.
--- NOTE | 2018-04-09 17:30 | NUR ---
PATIENT HAD BILATERAL RHONCHI AND REFUSED SUCTION WORK OF BREATHING IS MINIMAL WITH GOOD CHEST RISE YONY CHAVARRIA, ROLL SKINNER
[2018-04-09] MEDS: CHLORHEXADINE GLUC 2% CLOTH TP SCH (17:52)
[2018-04-09] MEDS: NACL 0.9% 1,000 ML IV SCH (19:00)
--- NOTE | 2018-04-09 19:10 | NUR ---
PATIENT REPORT GIVEN AT BEDSIDE. PATIENT ENDORSED IN STABLE CONDITION
--- NOTE | 2018-04-09 19:11 | NUR ---
PATIENT REPORT RECEIVED AT BEDSIDE FROM MORNING NURSE. PATIENT IS AWAKE AND ALERT. NON-VERBAL BUT ABLE TO MAKE NEEDS KNOWN. FLACC 0. NO SIGNS AND SYMPTOMS OF DISTRESS NOTED. NO COMPLAINTS OF PAIN AT THIS TIME. IV SITE NOTED RIGHT HAND AND RIGHT AC. IV FLUID INFUSING WELL. GTUBE IN PLACE WITH TUBE FEEDING RUNNING AT 70ML/HR. HILLIARD CATHETER IN PLACE DRAINING CLEAR YELLOW URINE. SAFETY PRECAUTIONS IN PLACE. BED IN LOWEST POSITION, SIDE RAILS UP AND CALL LIGHT WITHIN REACH. WILL CONTINUE TO MONITOR
--- NOTE | 2018-04-09 19:30 | NUR ---
RECEIVED PT STABLE ON VENT SUPPORT AT DOCUMENTED SETTINGS, SUCTIONED SMALL AMOUNTS OF THIN CLEAR WHITE SECRETIONS, NO RESP DISTRESS OR SOB NOTED AT THIS TIME, PT AWAKE/ALERT AND RESPONSIVE TO COMMANDS, PORTEX 6 TRACH SECURED/PATENT/MIDLINE, ALARMS SET AND AUDIBLE, AMBU BAG AT BEDSIDE, VENT PLUGGED INTO RED OUTLET, PULSE OX ON, WILL CONT TO MONITOR.
[2018-04-09 20:00] VITALS: BP 109/57
--- NOTE | 2018-04-09 21:00 | NUR ---
GTUBE RESIDUAL CHECKED. 40ML RESIDUAL NOTED. MEDICATION EDUCATION GIVEN. MEDICATION ADMINISTERED ORDERED. PATIENT TOLERATED WELL. WILL CONTINUE TO MONITOR
--- NOTE | 2018-04-09 22:00 | NUR ---
PATIENT REPOSITIONED FOR COMFORT. PATIENT TOLERATED WELL. WILL CONTINUE TO MONITOR
[2018-04-10] VITALS: BP 112/60
--- NOTE | 2018-04-10 00:17 | NUR ---
G TUBE RESIDUAL CHECKED, 20ML NOTED. NEW BOTTLE OF TUBE FEEDING STARTED; TO RUN AT 70ML/HR
--- NOTE | 2018-04-10 00:51 | NUR ---
PATIENT HAD A BOWEL MOVEMENT. PERICARE DONE. PATIENT REPOSITIONED FOR COMFORT. PATIENT TOLERATED WELL. WILL CONTINUE TO MONITOR
[2018-04-10] MEDS ORDERED: HYDROcodone/APAP 5/325 MG 1 TAB TAB ONE (03:34)
[2018-04-10] MEDS: HYDROcodone/APAP 5/325 MG 1 TAB TAB GT PRN ×3 (03:40→12:52)
[2018-04-10 04:00] VITALS: BP 131/81
--- NOTE | 2018-04-10 04:00 | NUR ---
VAP ORAL CARE DONE. PATIENT REPOSITIONED FOR COMFORT. PATIENT TOLERATED WELL. WILL CONTINUE TO MONITOR
[2018-04-10] MEDS: PIPER/TAZO 3.375GM/D5W PREMIX 50 ML IV SCH ×2 (04:02→12:51)
[2018-04-10] MEDS: BRIMONIDINE TARTRATE 0.2% OP 5 ML BTL BOTH EYES SCH ×2 (04:02→12:51)
[2018-04-10] MEDS: BLOOD GLUCOSE MONITORING 1 DEV DEV FS SCH ×3 (05:10→16:34)
[2018-04-10] MEDS: NACL 0.9% 1,000 ML IV SCH (06:40)
--- NOTE | 2018-04-10 07:06 | NUR ---
RECEIVED TRACH PT WITH A PORTEX 6 ON VENT. SETTINGS AC 12, VT 450, PEEP 5 AND FIO2 28%. PT IS AWAKE AND NOT IN ANY DISTRESS AT THIS TIME. TRACH IS SECURE WITH A PATENT AIRWAY. VENT IS PLUGGED INTO A RED OUTLET WITH ALARMS ON AND FUNCTIONING. AMBU BAG IS PRESENT AT BEDSIDE. WILL CONTINUE TO MONITOR.
--- NOTE | 2018-04-10 07:10 | NUR ---
PATIENT REPORT GIVEN TO MORNING NURSE AT BEDSIDE FOR CONTINUITY OF CARE. PATIENT IS IN STABLE CONDITION
[2018-04-10] MEDS ORDERED: LACT10CA1 PO (07:21)
[2018-04-10] MEDS ORDERED: PIPE1PDS26 IV (07:21)
[2018-04-10] MEDS ORDERED: ZOS3.375I IV (07:28)
[2018-04-10 07:42] VITALS: BP 132/73
[2018-04-10 07:44] LABS: BASOPHILS % (AUTO) 0.3 % (0.0-2.0); EOSINOPHILS # (AUTO) 0.3 K/uL (0-0.4); EOSINOPHILS % (AUTO) 2.9 % (0.0-4.0); HEMATOCRIT 26.8 % (36-52); HEMOGLOBIN 8.5 g/dL (12.0-18.0); LYMPHOCYTES # (AUTO) 1.8 K/uL (2.0-11.5); LYMPHOCYTES % (AUTO) 15.9 % (20.5-51.1); MEAN CORPUSCULAR HEMOGLOBIN 26 pg (27-31); MEAN CORPUSCULAR HGB CONC 32 g/dL (33-37); MEAN CORPUSCULAR VOLUME 82.4 fL (80-94); MONOCYTES # (AUTO) 0.9 K/uL (0.8-1.0); MONOCYTES % (AUTO) 7.6 % (1.7-9.3); NEUTROPHILS # (AUTO) 8.4 K/uL (1.8-7.7); NEUTROPHILS % (AUTO) 73.3 % (42.2-75.2); PLATELET COUNT (AUTO) 352 K/uL (140-450); RED BLOOD CELL COUNT(AUTO) 3.26 MIL/uL (4.20-6.10); RED CELL DISTRIBUTION WIDTH 17.8 % (11.6-13.7); WHITE BLOOD COUNT (AUTO) 11.4 K/uL (4.8-10.8)
[2018-04-10 08:05] LABS: ANION GAP 13.1 (8-16); CARBON DIOXIDE 24.2 mmol/L (21-32); CHLORIDE 104 mmol/L (98-107); CREATININE 0.8 mg/dL (0.7-1.3); GLUCOSE 108 mg/dL (74-106); POTASSIUM 3.3 mmol/L (3.5-5.1); SODIUM SERUM 138 mmol/L (136-145); UREA NITROGEN, BLOOD 12 mg/dL (7-18)
[2018-04-10] MEDS: CALCIUM ACETATE 667 MG TAB PO SCH ×2 (08:13→16:35)
[2018-04-10] MEDS: metFORMIN 500 MG TAB GT SCH (08:13)
[2018-04-10] MEDS: PREGABALIN 50 MG CAP GT SCH (08:13)
[2018-04-10] MEDS: ATENOLOL 25 MG TAB GT SCH (08:14)
[2018-04-10] MEDS: ASPIRIN 81 MG TAB.CHEW GT SCH (08:14)
[2018-04-10] MEDS: GLIMEPIRIDE 2 MG TAB GT SCH (08:14)
[2018-04-10] MEDS: LACTOBACILLUS RHAMNOSUS GG 1 EACH CAP GT SCH (08:14)
[2018-04-10] MEDS: PANTOPRAZOLE 40 MG INJ VIAL IV SCH (08:15)
[2018-04-10] MEDS: FUROSEMIDE 40 MG/5 ML ORAL SOL UDC GT SCH (08:15)
[2018-04-10] MEDS ORDERED: POTASSIUM CHLORIDE 20% 40 MEQ/15 ML UDC GT SCH (09:00)
--- NOTE | 2018-04-10 11:00 | NUR ---
PATIENT HAD BM. STOOL LOOSE, BLACK AND SMALL IN AMOUNT. PATIENT CLEANED AND REPOSITIONED FOR COMFORT. WILL CONTINUE TO MONITOR
[2018-04-10 12:00] VITALS: BP 134/68
--- NOTE | 2018-04-10 12:22 | NUR ---
CALLED [facility] AND SPOKE WITH ENMA AND REQUESTED [facility] TRANSPORT FOR PATIENT TO [facility]. SCHEDULED ON A WILL CALL UNTIL ROOM NUMBER IS OBTAINED FOR THE FACILITY.
[2018-04-10] MEDS: MUPIROCIN 2% OINT 22 GM TUBE TP SCH (12:52)
--- NOTE | 2018-04-10 12:54 | NUR ---
Shipping And Receiving Note: Per Yissel from [facility] , patient may return to room 14B, requested for patient to be transfer before 5pm or after 7pm today, accepting physician is . I called [facility] and spoke with Rick. Per Rick, they don't have a picker/puller time available before 5pm, but they do at 7pm, arranged for picker/puller time at 7pm, charge nurse Mckenzie mora.
--- NOTE | 2018-04-10 13:39 | NUR ---
VENT CHECK COMPLETED. PT IS ASLEEP AT THIS TIME , NOT IN ANY DISTRESS. WILL CONTINUE TO MONITOR.
--- NOTE | 2018-04-10 13:52 | NUR ---
PATIENT ASLEEP IN BED. NO S/S OF DISTRESS NOTED
--- NOTE | 2018-04-10 15:05 | NUR ---
SPOKE TO PATIENT'S SON, GEOVANY AND INFORMED HIM THAT PATIENT IS BEING DISCHARGED BACK [facility]
[2018-04-10 16:00] VITALS: BP 152/73
--- NOTE | 2018-04-10 17:04 | NUR ---
SPOKE TO SHANDARN AT [facility] AND GAVE PATIENT REPORT
--- NOTE | 2018-04-10 17:38 | NUR ---
VENT CHECK COMPLETED. PT REMAINS ON DOCUMENTED VENT SETTINGS. PT IS AWAKE AND NOT IN ANY DISTRESS AT THIS TIME. VENT ALARMS REMAIN ON AND FUNCTIONING. TRACH REMAINS SECURE WITH A PATENT AIRWAY.
[2018-04-10] MEDS: CHLORHEXADINE GLUC 2% CLOTH TP SCH (17:40)
--- NOTE | 2018-04-10 19:00 | NUR ---
PATIENT PICKED UP BY [facility] TO BE TRANSFERRED TO [facility]. PATIENT LEFT WITH ALL HIS BELONGINGS AND DISCHARGE PAPERS. IV LINE LEFT INTACT. PATIENT LEFT IN STABLE CONDITION
--- NOTE | 2018-04-10 19:00 | NUR ---
PATIENT DISCHARGED FROM FACILITY VENTILATOR SETTINGS OF AC 12 VT 450 PEEP 5 FIO2 28% GIVEN TO [facility] RESPIRATORY THERAPIST
== END 2018-04-10 19:00 | DRG 207 ==
LOC: MED 09:45 → MTU 14:13
PROVIDERS: ADMIT General Practice; ATTEND General Practice
PROC: 5A1955Z Respiratory Ventilation, Greater than 96 Consecutive Hours (ICD-10-PCS; principal; 2018-04-06)
DX: J69.0 Pneumonitis due to inhalation of food and vomit (principal); J96.00 Acute respiratory failure, unspecified whether with hypoxia or hypercapnia; N17.0 Acute kidney failure with tubular necrosis; J44.1 Chronic obstructive pulmonary disease with (acute) exacerbation; D68.59 Other primary thrombophilia; E44.0 Moderate protein-calorie malnutrition; Z99.11 Dependence on respirator [ventilator] status; J90 Pleural effusion, not elsewhere classified; K92.2 Gastrointestinal hemorrhage, unspecified; K21.9 Gastro-esophageal reflux disease without esophagitis; F41.9 Anxiety disorder, unspecified; H40.9 Unspecified glaucoma; E11.69 Type 2 diabetes mellitus with other specified complication; E02 Subclinical iodine-deficiency hypothyroidism; E87.6 Hypokalemia; Z79.84 Long term (current) use of oral hypoglycemic drugs; Z79.82 Long term (current) use of aspirin; Z79.899 Other long term (current) drug therapy; Z85.21 Personal history of malignant neoplasm of larynx; Z93.0 Tracheostomy status; Z74.01 Bed confinement status; Z87.891 Personal history of nicotine dependence; Z68.22 Body mass index [BMI] 22.0-22.9, adult; Z22.322 Carrier or suspected carrier of Methicillin resistant Staphylococcus aureus
CPT/HCPCS: 36415; 36600; 71045; 80048; 80053; 81001; 82150; 82272; 82550; 82553; 82803; 82948; 83036; 83605; 83690; 83735; 83874; 83880; 84100; 84436; 84443; 84479; 84484; 85025; 85610; 85730; 87040; 87045; 87070; 87081; 87086; 87186; 87205; 89220; 93005; 94003; 94640; 96361; 96365; 99291; C9113; J1815; J2543; J3490; J7030; J7620; Q0092

== ENCOUNTER 2018-05-15 15:54 | Inpatient (IN) | payer OTHER, MEDICAID ==
[~2018-05-15] VITALS: Ht 180.3 cm; Wt 83.0 kg
[2018-05-15 15:54] VITALS: BP 111/58
[~2018-05-15 15:54] MED LIST changes: +ALPOS LEFT EYE; +ASPI81EC98 GT; +ATEN25TA7 GT; +CALC500C17 PO; +DULO60EC GT; +FURO-572 GT; +GLIM4TAB2 GT; +LORA-476 GT; +MAGN400T7 GT; +MELA5TAB5 GT; +METF1000 GT; +NITR0.4S23 SL; +OMEP20EC6 GT; +PREG150C GT; +SLIDE SUBQ; +TRAV5SOL LEFT EYE; +VITD1000 GT; +ZOS3.375I IV
--- NOTE | 2018-05-15 15:55 | NUR ---
PT BIBA ALS TO BED 10
--- NOTE | 2018-05-15 16:00 | NUR ---
82 YEAR OLD MALE BIBA FROM RESIDENTIAL; TRACH TO VENT. PT IS RESPONSIVE AND ABLE TO ANSWER QUESTIONS APPROPIRATELY. PERRLA. PT HAS SEVERE WEAKNESS ON UPPER EXTREMITIES AND MILD WEAKNESS ON LOWER EXTREMITIES. UNABLE TO AMBULATE. PT IS AFEBRILE. PTS LUNGS ARE CLEAR BILATERALLY; G-TUBE IN PLACE (CLAMPED). PT'S ABD IS DISTENDED AND TYMPANIC; FLACC 0 DURING PERCUSSION AND PALPATION. PTS SKIN IS DRY TO TOUCH. PTS SKIN IS INTACT BUT PT HAS SCARS ON LEFT THIGH AND ENCISO.
--- NOTE | 2018-05-15 16:02 | NUR ---
RT AT BEDSIDE.
--- NOTE | 2018-05-15 16:12 | NUR ---
PT HAS G-TUBE; RESIDUALS 10ML
[2018-05-15 16:14] VITALS: BP 111/58
--- NOTE | 2018-05-15 16:20 | NUR ---
PT BLOOD SUGAR WAS 53; DR. REICH TOLD ME TO HOLD D5 UNTIL LAB DRAW AND TO GIVE JUICE THROUGH THE G-TUBE TO CORRECT SUGAR AFTER LABS TAKEN
[2018-05-15] MEDS ORDERED: NACL 0.9% 1,000 ML IV SCH (16:35)
[2018-05-15] MEDS ORDERED: PIPERACILLIN/TAZOBACTAM 3.375 GM in DEXT 5% MINI-BAG PLUS 50 ML IV ONE (16:35)
[2018-05-15] MEDS ORDERED: DEXTROSE 50% 50 ML SYR IVP ONE ×2 (16:35→17:50)
[2018-05-15] MEDS ORDERED: ALBUTEROL 0.083% 2.5 MG/3 ML NEBU INH ONE ×2 (16:35→17:50)
[2018-05-15] MEDS ORDERED: IPRATROPIUM 0.02% 0.5 MG/2.5 ML NEBU INH ONE (16:35)
[2018-05-15 17:17] LABS: BASOPHILS # (AUTO) 0.1 K/uL (0.00-0.22); BASOPHILS % (AUTO) 0.3 % (0.0-2.0); EOSINOPHILS # (AUTO) 0.3 K/uL (0-0.4); EOSINOPHILS % (AUTO) 1.7 % (0.0-4.0); HEMATOCRIT 32.5 % (36-52); HEMOGLOBIN 10.3 g/dL (12.0-18.0); LYMPHOCYTES # (AUTO) 2.1 K/uL (2.0-11.5); LYMPHOCYTES % (AUTO) 10.5 % (20.5-51.1); MEAN CORPUSCULAR HEMOGLOBIN 26 pg (27-31); MEAN CORPUSCULAR HGB CONC 32 g/dL (33-37); MEAN CORPUSCULAR VOLUME 81.1 fL (80-94); MONOCYTES # (AUTO) 0.9 K/uL (0.8-1.0); MONOCYTES % (AUTO) 4.5 % (1.7-9.3); NEUTROPHILS # (AUTO) 16.4 K/uL (1.8-7.7); PLATELET COUNT (AUTO) 648 K/uL (140-450); RED BLOOD CELL COUNT(AUTO) 4.01 MIL/uL (4.20-6.10); RED CELL DISTRIBUTION WIDTH 18.3 % (11.6-13.7); WHITE BLOOD COUNT (AUTO) 19.7 K/uL (4.8-10.8)
[2018-05-15 17:31] LABS: ALBUMIN 3.2 g/dL (3.4-5.0); ANION GAP 12.4 (8-16); ASPARTATE AMINOTRANSFERASE 15 U/L (15-37); CARBON DIOXIDE 25.4 mmol/L (21-32); CHLORIDE 100 mmol/L (98-107); CREATININE 1.7 mg/dL (0.7-1.3); SODIUM SERUM 132 mmol/L (136-145); TOTAL BILIRUBIN 0.2 mg/dL (0.0-1.0)
[2018-05-15 17:38] LABS: UREA NITROGEN, BLOOD 61 mg/dL (7-18)
[2018-05-15 17:42] LABS: GLUCOSE 42 mg/dL (74-106)
[2018-05-15 17:43] LABS: POTASSIUM 5.8 mmol/L (3.5-5.1)
[2018-05-15 17:44] LABS: AMYLASE 39 U/L (25-115); LIPASE 105 U/L (73-393)
[2018-05-15 17:47] LABS: PROTHROMBIN TIME 9.9 secs (10.8-13.4)
[2018-05-15] MEDS ORDERED: CALCIUM GLUCONATE 10% 1000 MG/10 ML VIAL IVP ONE (17:50)
[2018-05-15] MEDS ORDERED: LACTULOSE 20 GM/30 ML UDC PO ONE (17:50)
[2018-05-15] MEDS ORDERED: SODIUM BICARBONATE 8.4% PFS 50 MEQ/50 ML SYR IVP ONE (17:50)
[2018-05-15] MEDS ORDERED: SODIUM POLYSTYRENE 15 GM/60 ML UDBTL PR ONE (17:50)
--- NOTE | 2018-05-15 17:51 | NUR ---
PT RETURNED FROM CT
[2018-05-15] MEDS ORDERED: PIPERACILLIN/TAZOBACTAM 3.375 GM VIAL IV ONE (18:39)
[2018-05-15 18:45] VITALS: BP 109/78
[2018-05-15] MEDS ORDERED: ONDANSETRON 4 MG/2 ML VIAL IVP PRN (18:45)
[2018-05-15] MEDS ORDERED: NACL 0.9% 1,000 ML IV ONE (18:45)
[2018-05-15] MEDS ORDERED: HYDROcodone/APAP 7.5/325 MG 1 TAB PO PRN (18:45)
[2018-05-15] MEDS ORDERED: ACETAMINOPHEN 325 MG TAB PO PRN (18:45)
--- NOTE | 2018-05-15 19:05 | NUR ---
PT RESTING IN BED; AROUSES TO NAME. LOW BP 94/59
--- NOTE | 2018-05-15 19:15 | NUR ---
REPORT RECEIVED FROM ANMOL EVERETT
--- NOTE | 2018-05-15 19:16 | NUR ---
DR ALCALA AT BEDSIDE.
--- NOTE | 2018-05-15 19:28 | NUR ---
GAVE REPORT TO NIGHT RN FOR CONTUATION OF CARE.
--- NOTE | 2018-05-15 19:40 | NUR ---
RECEIVED FROM ER PER TERESSA AWAKE. NON VERBAL. GT IN PLACE. IVF SITE TO RAC #22 WITH NS 2 LITERS OPEN/BOLUS OB GOING. PT. USES HANDS TO CONVEY SIMPLE NEEDS. TRACH TO VENT. 02 SAT AT 100 %. BP 106/65. NO SOB. NO RESTLESSNESS . CARE PLANS FOR THE NIGHT EXPLAINED TO HIM. NEEDS WILL BE ANTICIPATED AND WILL BE MET.ED Q 2H. PT. DX. OF HEMATURIA. URINAL IN PLACE REQUESTED BY PT. AFEBRILE. TELEMETRY MONITORING.
[2018-05-15 19:45] VITALS: BP 106/65
--- NOTE | 2018-05-15 19:49 | NUR ---
Patient will be admitted to care of DR ALCALA. Admited to DR ALCALA. Will go to room 114A. Belongings list completed. Report to [facility].
[2018-05-15 20:29] LABS: FREE T4 (FREE THYROXINE) 0.84 ng/dL (0.76-1.46); MAGNESIUM 2.8 mg/dL (1.8-2.4); PHOSPHORUS 5.9 mg/dL (2.5-4.9); THYROID STIMULATING HORMONE 9.74 uIU/mL (0.34-3.74)
[2018-05-15] MEDS ORDERED: ACETAMINOPHEN 325 MG TAB GT PRN (20:50)
[2018-05-15] MEDS ORDERED: NON-FORMULARY ITEM (Bisacodyl (Dulcolax) 10 MG) RC SCH (20:55)
[2018-05-15] MEDS ORDERED: SODIUM PHOSPHATE 118 ML ENEM RC SCH (20:55)
[2018-05-15] MEDS ORDERED: ALBUTEROL SULFATE/IPRATROPIU 3 ML SOL IH PRN (21:00)
[2018-05-15] MEDS ORDERED: DEXTROSE 50% 50 ML SYR IVP PRN (21:00)
[2018-05-15] MEDS ORDERED: NON-FORMULARY ITEM (Travoprost (Travatan Z 5 Ml) 1 DROP) LEFT EYE SCH (21:00)
[2018-05-15] MEDS: DEXT 5% / NACL 0.45% 1,000 ML IV SCH (21:25)
[2018-05-15] MEDS: DOCUSATE SODIUM 100 MG GELCAP PO SCH (21:41)
--- NOTE | 2018-05-15 22:00 | NUR ---
PT. TURNED TO SIDES. WHISPERS SIMPLE NEEDS. CALL LIGHT WITH IN REACH RT RIGHT HAND CAN GRASP THINGS. TELEMETRY MONITORING. NSR IN MONITOR. ISOLATION PRECAUTION OBSERVED RT HISTORY MRSA NARES COLONIZED AND ESBL URINE . NO NOTED HEMATURIA AT THIS TIME. WILL BE TURNED Q 2H. PILLOW SUPPORT TO PRESSURE AREAS. RESPIRATORY THERAPIST IN HERE TO CHECK RT TRACH TO VENT PT. REDNESS TO PERINEAL AREA.
[2018-05-15] MEDS: BLOOD GLUCOSE MONITORING 1 DEV DEV FS SCH (22:28)
[2018-05-15] MEDS: PREGABALIN 50 MG CAP GT SCH (22:30)
[2018-05-16] VITALS (8 sets, daily range): BP systolic 100–136; BP diastolic 51–110
[2018-05-16] MEDS ORDERED: PIPERACILLIN/TAZOBACTAM 2.25 GM VIAL IV ONE ×2 (00:15→06:03)
--- NOTE | 2018-05-16 01:50 | NUR ---
PT. TURNED TO SIDES Q 2H. TOTAL CARE. ABLE TO USE RIGHT HAND TO USE YAUNKER SECTION. WHISPERS SIMPLE NEEDS. ABLE TO CATCH URINE AND SUBMITTED TO LABORATORY. KEPT DRY,CLEAN AND COMFORTABLE. WAKES UP EASILY WHEN TOUCHED.
[2018-05-16] MEDS ORDERED: Z-GUARD PASTE TP PRN (02:00)
[2018-05-16] MEDS ORDERED: Z-GUARD PASTE TP ONE (02:09)
--- NOTE | 2018-05-16 03:00 | NUR ---
PT. TURNED TO SIDES. PILLOW SUPPORT TO PRESSURE AREAS. SLEEPING. WAKES UP WHEN TOUCHED. TELEMETRY MONITORING. NEEDS ANTICIPATED AND MET.
[2018-05-16] MEDS: ALBUTEROL SULFATE/IPRATROPIU 3 ML SOL IH SCH ×3 (06:00→18:37)
[2018-05-16] MEDS: INSULIN LISPRO SLIDING SCALE 100 UNITS/ML VIAL SUBQ PRN ×4 (06:08→21:48)
[2018-05-16] MEDS: BLOOD GLUCOSE MONITORING 1 DEV DEV FS SCH ×4 (06:08→21:49)
[2018-05-16] MEDS: PIPER/TAZO 2.25GM/D5W PREMIX 50 ML IV SCH ×5 (06:08→23:58)
[2018-05-16] MEDS: PANTOPRAZOLE 40 MG TABEC PO SCH (06:11)
--- NOTE | 2018-05-16 06:56 | NUR ---
PT. CLEANED UP AGAIN RT WITH WET BM. ABLE TO CLEAN PT. UP WITH LIQUIDY BM. BLACKISH DARK IN COLOR. PT. GIVEN KAYAXELATE IN ER AND ENEMA HERE ON THE FLOOR RT CONSTIPATION.KEPT CLEAN AND NEEDS ANTICIPATED.
--- NOTE | 2018-05-16 07:22 | NUR ---
ENDORSED TO THE NEXT RN FOR CONTINUITY OF CARE. NEEDS ANTICIPATED AND MET. TOTAL CARE. TRACH TO VENT. TELEMETRY MONITORING. TURNED Q 2H.
--- NOTE | 2018-05-16 07:28 | NUR ---
RECEIVED PT FROM [employer] SUPERVISOR NURSE, PT IS ASLEEP AND ON A TRACH TO VENT AT 30% FIO2, AND RATE IS 20. FALL PRECAUTION INITIATED, SIDE RAILS UP AND CALL LIGHT WITHIN REACH, BED IN LOW POSITION. PT HAS IV LINES ON THE RT AC G. 22, INTACT ON SALINE LOCK AND ON THE LEFT FA G. 22, INTACT WITH D51/2 NS RUNNING AT 50ML/HR, PATENT. RESPIRATIONS EVEN AND NO SIGN OF DISTRESS NOTED. WILL CONTINUE TO MONITOR PT.
[2018-05-16 07:33] LABS: ANION GAP 16.4 (8-16); CARBON DIOXIDE 19.6 mmol/L (21-32); CHLORIDE 103 mmol/L (98-107); CREATININE 1.2 mg/dL (0.7-1.3); GLUCOSE 192 mg/dL (74-106); SODIUM SERUM 134 mmol/L (136-145); UREA NITROGEN, BLOOD 48 mg/dL (7-18)
[2018-05-16 07:37] LABS: CHOL/HDL RATIO 3.2 (1-4.5); MAGNESIUM 2.6 mg/dL (1.8-2.4); PHOSPHORUS 3.8 mg/dL (2.5-4.9)
[2018-05-16 07:53] LABS: HEMOGLOBIN 9.7 g/dL (12.0-18.0); MEAN CORPUSCULAR HEMOGLOBIN 25 pg (27-31); MEAN CORPUSCULAR HGB CONC 31 g/dL (33-37); MEAN CORPUSCULAR VOLUME 81.2 fL (80-94); PLATELET COUNT (AUTO) 604 K/uL (140-450); RED BLOOD CELL COUNT(AUTO) 3.82 MIL/uL (4.20-6.10); RED CELL DISTRIBUTION WIDTH 18.2 % (11.6-13.7); WHITE BLOOD COUNT (AUTO) 28.1 K/uL (4.8-10.8)
--- NOTE | 2018-05-16 07:59 | NUR ---
PATIENT HAS BEEN SCREENED AND CATEGORIZED HIGH NUTRITION RISK. PATIENT WILL BE SEEN WITHIN 1-2 DAYS OF ADMISSION. 05/16/18 05/17/18 ABDIEL ANNE MBA, RD
--- NOTE | 2018-05-16 08:00 | NUR ---
PT IS AWAKE AND VITAL SIGNS TAKEN AND IS STABLE, G-TUBE WAS CHECKED AND NO DRAINAGE NOTED AND IS INTACT. NO SIGN OF DISTRESS NOTED, SAFETY AND FALL PRECAUTION ENFORCED. SCD WAS APPLIED TO THE PT. WILL CONTINUE TO MONITOR.
[2018-05-16 08:05] LABS: EOSINOPHILS % (MANUAL) 1 % (0-4); LYMPHOCYTES % (MANUAL) 6 % (20-46); MONOCYTES % (MANUAL) 4 % (5-12)
--- NOTE | 2018-05-16 08:13 | NUR ---
RECEIVED ON A [employer] R860 VENTILATOR WITH COMPRESSOR ON AND FUNCTIONING WELL PLUGGED INTO RED OUTLET TOLERATING WELL WITHOUT ADVERSE REACTIONS NOTED TO A PORTEX DFEN #6 AIRWAY SECURED WITH A TRACH TIE CUFF PRESSURE CHECKED NOTED AMBU BAG NOTED AT BEDSIDE ASLEEP NO EVIDENCE OD SOB NOTED BREATH SOUNDS DIMINISHED BILATERAL WITH GOOD CHEST RISE DEEP TRACHEAL SUCTION FOR LARGE THICK YELLOW WITH BLOOD TINGE SECRETIONS AIRWAY PATENT SPUTUM SAMPLE COLLECTED MARK/RN NOTIFIED PORTABLE CONTINUOS PULSE OXIMETER AT BEDSIDE ON AND FUNCTIONING WELL
[2018-05-16] MEDS ORDERED: BISACODYL 10 MG SUPP RC PRN (08:25)
--- NOTE | 2018-05-16 08:25 | NUR ---
PT IS ASLEEP AND RT ON THE BEDSIDE GIVING BREATHING TREATMENT, WA ASKED TO GET SPUTUM SAMPLE FROM PT AND RT, GIGI ACKNOWLEDGED AND AGREED. WILL FOLLOW THROUGH. NO SIGN OF DISTRESS NOTED ON THE PT.
--- NOTE | 2018-05-16 08:35 | NUR ---
SPUTUM SAMPLE WAS COLLECTED BY GIGI GARRETT AND SAMPLE WAS SENT TO LAB, ACKNOWLEDGED AND WILL FOLLOW THROUGH.
[2018-05-16] MEDS ORDERED: ASPIRIN 81 MG TAB.CHEW GT SCH (09:00)
[2018-05-16] MEDS: ATENOLOL 25 MG TAB GT SCH (09:00)
[2018-05-16] MEDS ORDERED: LORATADINE 10 MG TAB GT SCH (09:00)
[2018-05-16] MEDS ORDERED: NON-FORMULARY ITEM (Omeprazole 20 MG) GT SCH (09:00)
[2018-05-16] MEDS ORDERED: GLIMEPIRIDE 4 MG GT SCH (09:00)
[2018-05-16] MEDS ORDERED: NON-FORMULARY ITEM (Loratadine 10 MG) GT SCH (09:00)
[2018-05-16] MEDS ORDERED: FUROSEMIDE 20 MG GT SCH (09:00)
[2018-05-16] MEDS ORDERED: NON-FORMULARY ITEM (Lisinopril 20 MG) GT SCH ×2 (09:00)
[2018-05-16] MEDS ORDERED: NON-FORMULARY ITEM (Aspirin (Aspir 81) 81 MG) GT SCH (09:00)
[2018-05-16] MEDS: PANTOPRAZOLE 40 MG INJ VIAL IVP SCH (09:11)
[2018-05-16] MEDS: metFORMIN 500 MG TAB GT SCH ×2 (09:12→21:46)
[2018-05-16] MEDS: DOCUSATE SODIUM 100 MG GELCAP PO SCH ×2 (09:12→21:46)
[2018-05-16] MEDS: ASPIRIN 81 MG TAB.CHEW GT SCH (09:12)
[2018-05-16] MEDS: LACTOBACILLUS RHAMNOSUS GG 1 EACH CAP PEG SCH (09:13)
[2018-05-16] MEDS: GLIMEPIRIDE 2 MG TAB GT SCH (09:13)
[2018-05-16] MEDS: PREGABALIN 50 MG CAP GT SCH ×2 (09:14→21:46)
[2018-05-16] MEDS: FUROSEMIDE 40 MG/5 ML ORAL SOL UDC GT SCH (09:15)
--- NOTE | 2018-05-16 09:15 | NUR ---
PT WAS REPOSITIONED AND CLEANED WITH THE HELP OF MONA RODNEY AND PT WAS MADE COMFORTABLE TO THE BED. ASSESSMENT ON THE SACRAL PART WAS DONE AND NO VISIBLE EVIDENCE OF AN OPEN WOUND, APPLY A THIN Z-GUARD FOR PROTECTION BECAUSE PT HAD BEEN HAVING BOWEL MOVEMENT EVERY NOW AND THEN FROM THE ENEMA GIVEN BY OUTSIDE SALES NURSE.
--- NOTE | 2018-05-16 09:30 | NUR ---
DR. ONOFRE CAME TO PT'S ROOM AND SHOWED THE PT'S BP RESULT OF 110/56 PRIOR TO GIVING THE MEDICATIONS, AND MD SAID TO JUST GIVE THE LISINOPRIL AND HOLD OFF FOR THE ATENOLOL, ACKNOWLEDGED AND WILL GIVE MEDICATIONS TO PT. PT TOLERATED IT AND NO SIGN OF DISTRESS NOTED. WILL CONTINUE TO MONITOR
[2018-05-16] MEDS: LISINOPRIL 20 MG TAB GT SCH (09:31)
--- NOTE | 2018-05-16 10:02 | NUR ---
RESTING COMFORTABLY NO EVIDENCE OF PULMONARY DISTRESS NOTED GOOD CHEST RISE DEEP TRACHEAL SUCTION FOR SMALL THICK YELLOW SECRETIONS AIRWAY PATENT
--- NOTE | 2018-05-16 11:07 | NUR ---
INFORMED DR. ONOFRE THAT PT'S MG LEVEL IS HIGH, 2.6, MD ACKNOWLEDGED AND WILL FOLLOW THROUGH ON FURTHER ORDERS FROM .
--- NOTE | 2018-05-16 11:53 | NUR ---
NO SOB NOTED GOOD CHEST RISE BREATH SOUNDS DECREASED BILATERAL MASIMO RADICAL-7 CONTINUOS PULSE OXIMETER AT BEDSIDE ON AND FUNCTIONING WELL LOW SATURATION ALARM SET AT 92%
--- NOTE | 2018-05-16 13:02 | NUR ---
CHICKEN SEXER NOT AWARE OF HHN THERAPY WITH DUONEB AT 0600 ENTRY NOT IN EMAR AT 0635
--- NOTE | 2018-05-16 14:48 | NUR ---
05/16/18 RD INITIAL ASSESSMENT COMPLETED PLEASE REFER TO NUTRITION ASSESSMENT UNDER CARE ACTIVITY FOR ESTIMATED NUTRITIONAL NEEDS. RD RECOMMENDATIONS: 1- WHEN MEDICALLY CLEARED, RECOMMEND TF TWO OBDULIA HN @40MLS/HR (1920KCALS, 80G PROTEIN - MEETS 100% ESTIMATED NEEDS). START @ 30 AND ADVANCE TOLERATED. 2- RD F/U 2-3 DAYS; HIGH RISK ABDIEL ANNE MBA, RD
--- NOTE | 2018-05-16 15:45 | NUR ---
ASLEEP EASILY AWAKENS RESTING COMFORTABLY TOLERATING VENTILATOR SUPPORT WITHOUT ANY ADVERSE REACTIONS NOTED GOOD CHEST RISE DEEP TRACHEAL SUCTION MODERATE THIN YELLOW SECRETIONS AIRWAY PATENT Addendum: 05/16/18 at 1559 by Landon Golden RT ORAL PHARYNGEAL SUCTION FOR LARGE THIN PALE WHITE SECRETIONS
[2018-05-16 15:46] LABS: APPEARANCE,URINE CLEAR (CLEAR); BILIRUBIN,URINE NEGATIVE (NEGATIVE); BLOOD, URINE NEGATIVE (NEGATIVE); COLOR,URINE YELLOW (YELLOW); LEUKOCYTE ESTERASE ,URINE NEGATIVE (NEGATIVE); NITRITE, URINE NEGATIVE (NEGATIVE); PH,URINE 5.5 (5.0-9.0); UGLUCOSE NEGATIVE (NEGATIVE)
--- NOTE | 2018-05-16 16:30 | NUR ---
PT IS AWAKE AND SIDE RAILS ARE UP AND CALL LIGHT WITHIN REACH, PT SMILED WHEN CALLED BY NAME AND BLOOD GLUCOSE CHECK DONE AND RESULT IS 161, 2 UNITS INSULIN GIVEN SUBQ AT LEFT UPPER ARM, PT TOLERATED IT AND NO SIGN OF DISTRESS NOTED. WILL MONITOR.
--- NOTE | 2018-05-16 16:45 | NUR ---
CALLED RESPIRATORY THERAPIST TO CHECK PT BECAUSE O2 SATURATION IS GETTING LOW 86%.
--- NOTE | 2018-05-16 16:55 | NUR ---
ASLEEP RESTING COMFORTABLY NO SOB NOTED GOOD CHEST RISE
--- NOTE | 2018-05-16 16:55 | NUR ---
RTGIGI WAS ABLE TO FIXED THE PT'S O2 SATURATION, PT IS SLEEPING COMFORTABLY WITH NO SIGN OF DISTRESS NOTED., O2 SATURATION AT 99%. WILL MONITOR
[2018-05-16] MEDS: DEXT 5% / NACL 0.45% 1,000 ML IV SCH (17:19)
--- NOTE | 2018-05-16 17:28 | NUR ---
PT IS ASLEEP AND RESPIRATIONS EVEN, O2 SATURATION AT 99%, MEDIATIONS GIVEN VIA IVPB AND PT TOLERATED IT. NO SIGN OF DISTRESS NOTED. WILL CONTINUE TO MONITOR.
--- NOTE | 2018-05-16 19:30 | NUR ---
GAVE REPORT TO BREE OF ICU ABOUT THE PT. PT IS STABLE AT THIS TIME.
[2018-05-16] MEDS: BRIMONIDINE TARTRATE 0.2% OP 5 ML BTL LEFT EYE SCH ×2 (19:42→21:00)
--- NOTE | 2018-05-16 20:45 | NUR ---
patient transferred from room 114 to Icu bed 1 via 12 lpm O2 by ambu bag.no signs of respiratory distress noted. patient placed back on ventilator ac-12, VT-450, FIO2 30% PEEP+5
--- NOTE | 2018-05-16 20:45 | NUR ---
RECEIVED PT FROM [facility] FLOOR, PT TRANSFER WITH HOSPITAL BED BY 2 RT AND 1 RN.PT IS TRACH TO VENT WITH VENT SETTING AC RATE 12,TV 450,FIO2 30% AND PEEP OF 5, NO S/S OF RESP. DISTRESS,NO SOB. HOB UP 30-45 DEGREES ALL THE TIMES. SUCTION GIVEN PRN. RHONCHI TO BILATERAL LUNGS. PT IS CONTACT ISOLATION FOR SPUTUM INFECTIONS.GT IN PLACE NO REDNESS ON THE SOMA. ABD SOFT NON DISTENDED. IV SITE TO LEFT HAND AND RIGHT AC BOTH NO 22. FLUSHING WELL. IV HYDRATION D5 IN 1/2 NS AT 50 CC/HR. IV RUNNING WELL. NO FEVER AT THIS TIME. PT IS ALERT AND ABLE TO MOUTH WORDS HIS NEED AT THIS TIME. PT DENIAL ANY PAIN AT THIS TIME. PT IS INCONTINENT BOWEL AND BLADDER. BM X1 MODERATED BLACKISH PASTE.KEPT PT CLEAN AND DRY.CALL LIGHT BETWEEN REACH.
[2018-05-16] MEDS: HYDROcodone/APAP 7.5/325 MG 1 TAB GT PRN (21:57)
--- NOTE | 2018-05-16 21:57 | NUR ---
PT C/O PAIN 05/08,REPOSITION FOR COMFORT. PRN PAIN MEDS AND ROUTINE MEDICATIONS GIVEN ORDER. BLOOD SUGAR CHECK RESULT IS 175 AND 2 UNITS INSULIN GIVEN ORDER.
--- NOTE | 2018-05-16 22:30 | NUR ---
NO S/S OF PAIN AT THIS TIME. PT SLEEPING WELL.
[2018-05-17] VITALS (18 sets, daily range): BP systolic 98–138; BP diastolic 51–80
--- NOTE | 2018-05-17 00:10 | NUR ---
PT SLEEPING WELL
--- NOTE | 2018-05-17 02:00 | NUR ---
PT HAS PASTE BLASK MODERATE BM, GOOD PERIANAL CARE GIVEN.REPOSITIO FOR COMFORT. KEPT CLEAN AND DRY.
[2018-05-17] MEDS: HYDROcodone/APAP 7.5/325 MG 1 TAB GT PRN ×2 (02:50→07:42)
--- NOTE | 2018-05-17 03:00 | NUR ---
PT C/O PAIN 8/10 REPOSITION FOR COMFORT. PRN PAIN MED GIVEN ORDER.
--- NOTE | 2018-05-17 04:00 | NUR ---
PT SLEEPIN NO S/S OF PAIN AT THIS TIME . PAIN LEVEL 0/10
[2018-05-17] MEDS: BRIMONIDINE TARTRATE 0.2% OP 5 ML BTL LEFT EYE SCH ×3 (05:09→21:07)
--- NOTE | 2018-05-17 05:25 | NUR ---
BLOOD TEST CBC,BMP,MAG,PHOS DRAW BY GAS PLANT TECHNICIAN
[2018-05-17 05:35] LABS: BASOPHILS # (AUTO) 0.1 K/uL (0.00-0.22); BASOPHILS % (AUTO) 0.2 % (0.0-2.0); EOSINOPHILS # (AUTO) 0.5 K/uL (0-0.4); EOSINOPHILS % (AUTO) 2.2 % (0.0-4.0); HEMATOCRIT 28.2 % (36-52); HEMOGLOBIN 8.8 g/dL (12.0-18.0); LYMPHOCYTES # (AUTO) 2.3 K/uL (2.0-11.5); LYMPHOCYTES % (AUTO) 9.2 % (20.5-51.1); MEAN CORPUSCULAR HEMOGLOBIN 26 pg (27-31); MEAN CORPUSCULAR HGB CONC 31 g/dL (33-37); MEAN CORPUSCULAR VOLUME 81.7 fL (80-94); MONOCYTES # (AUTO) 1.5 K/uL (0.8-1.0); NEUTROPHILS # (AUTO) 20.5 K/uL (1.8-7.7); PLATELET COUNT (AUTO) 538 K/uL (140-450); RED BLOOD CELL COUNT(AUTO) 3.45 MIL/uL (4.20-6.10); WHITE BLOOD COUNT (AUTO) 24.9 K/uL (4.8-10.8)
[2018-05-17 05:48] LABS: CARBON DIOXIDE 23.9 mmol/L (21-32); CHLORIDE 105 mmol/L (98-107); GLUCOSE 151 mg/dL (74-106); POTASSIUM 3.9 mmol/L (3.5-5.1); SODIUM SERUM 139 mmol/L (136-145); UREA NITROGEN, BLOOD 31 mg/dL (7-18)
[2018-05-17 05:57] LABS: NEUTROPHILS % (AUTO) 82.4 % (42.2-75.2)
[2018-05-17] MEDS: PIPER/TAZO 2.25GM/D5W PREMIX 50 ML IV SCH ×3 (06:01→17:00)
[2018-05-17 06:24] LABS: MAGNESIUM 2.1 mg/dL (1.8-2.4); PHOSPHORUS 2.7 mg/dL (2.5-4.9)
[2018-05-17] MEDS: BLOOD GLUCOSE MONITORING 1 DEV DEV FS SCH ×4 (06:46→20:55)
[2018-05-17] MEDS: PANTOPRAZOLE 40 MG TABEC PO SCH (06:47)
--- NOTE | 2018-05-17 07:01 | NUR ---
DR.DAVID ONOFRE COME TO SEE PT AND MADE AWARE PT HAS X3 PASTE TO LIQUID BM.
[2018-05-17] MEDS: ALBUTEROL SULFATE/IPRATROPIU 3 ML SOL IH SCH ×3 (07:07→18:56)
--- NOTE | 2018-05-17 07:07 | NUR ---
RECEIVED ON A [employer] On Wheels[employer]APE VENTILATOR PLUGGED INTO RED OUTLET TOLERATING WELL WITHOUT ADVERSE REACTIONS NOTED TO A PORTEX DFEN #6 AIRWAY SECURED WITH A JANY TRACH TIE CUFF PRESSURE CHECKED NOTED AMBU BAG NOTED AT BEDSIDE RESTING WELL BREATH SOUNDS DIMINISHED BILATERAL WITH GOOD CHEST RISE AIRWAY PATENT
--- NOTE | 2018-05-17 07:30 | NUR ---
RECEIVED REPORT FROM NIGHT NURSE. PT IS AWAKE, ALERT AND ORIENTED X 3. AFEBRILE. ABLE TO MAKE NEEDS KNOWN AND FOLLOWS COMMANDS. SINUS RHYTHM ON MONITOR. PT IS TRACH TO VENT WITH VENT SETTINGS: AC 12, TV 450, FIO2 30%, PEEP OF 5. RHONCHI HEARD BILATERALLY, BL LOWER LOBE BREATH SOUNDS DIMINISHED. NO SIGNS OF RESPIRATORY DISTRESS OR SOB NOTED. BREATHING EVEN AND UNLABORED. ORAL CARE GIVEN. G-TUBE IN PLACE, NO RESIDUALS. ABDOMEN SOFT, NONTENDER AND NON DISTENDED. IV SITE TO LEFT HAND AND RIGHT AC BOTH G 22 INTACT, PATENT AND ASYMPTOMATIC. PT IS RECEIVING D51/2 NS AT 50 CC/HR. SKIN IS DRY AND WARM TO TOUCH. HOB 30 DEGREES, BED IN LOWEST POSITION AND CALL LIGHT WITHIN REACH. WILL CONTINUE TO MONITOR.
--- NOTE | 2018-05-17 08:11 | NUR ---
DR. GUIDO IN TO SEE AND EXAMINE PT. WILL FOLLOW UP ON ORDERS.
--- NOTE | 2018-05-17 08:28 | NUR ---
PT SEEN AND EXAMINED BY DR. ADAIR. WILL FOLLOW UP ON ORDERS.
[2018-05-17] MEDS: PANTOPRAZOLE 40 MG INJ VIAL IVP SCH (08:52)
[2018-05-17] MEDS: PREGABALIN 50 MG CAP GT SCH ×2 (08:52→20:54)
[2018-05-17] MEDS: FUROSEMIDE 40 MG/5 ML ORAL SOL UDC GT SCH (08:52)
[2018-05-17] MEDS: LISINOPRIL 20 MG TAB GT SCH (08:52)
[2018-05-17] MEDS: LACTOBACILLUS RHAMNOSUS GG 1 EACH CAP PEG SCH (08:53)
[2018-05-17] MEDS: ATENOLOL 25 MG TAB GT SCH (08:53)
[2018-05-17] MEDS: ASPIRIN 81 MG TAB.CHEW GT SCH (08:53)
[2018-05-17] MEDS: metFORMIN 500 MG TAB GT SCH ×2 (08:54→20:55)
[2018-05-17] MEDS: SENNA 8.6 MG TAB PO SCH ×3 (08:58→16:51)
[2018-05-17] MEDS: LACTULOSE 20 GM/30 ML UDC PO SCH ×2 (08:58→20:54)
[2018-05-17] MEDS: DOCUSATE SODIUM 100 MG GELCAP PO SCH ×2 (08:59→20:54)
[2018-05-17] MEDS ORDERED: MAGNESIUM CITRATE 300 ML BTL PO SCH (09:00)
--- NOTE | 2018-05-17 09:13 | NUR ---
MEDICATIONS ADMINISTERED ORDERED. PT TOLERATED WELL.
--- NOTE | 2018-05-17 09:29 | NUR ---
STABLE RESPONSIVE BREATH SOUNDS RHONCHI BILATERAL GOOD CHEST RISE DEEP TRACHEAL SUCTION FOR LARGE THICK PALE WHITE TO CLEAR SECRETIONS AIRWAY PATENT SATURATION 100% ON FIO2 OF 30% TITRATED FIO2 TO 28% Addendum: 05/17/18 at 0944 by Landon Golden RT KEEGAN/ANMOL NOTIFIED OF SUPPLEMENTAL OXYGEN TITRATION
[2018-05-17] MEDS: GLIMEPIRIDE 2 MG TAB GT SCH (09:50)
[2018-05-17] MEDS ORDERED: PROBIOTIC SCREEN 1 EA MISC MC PRN (10:35)
[2018-05-17] MEDS: DEXT 5% / NACL 0.45% 1,000 ML IV SCH (10:43)
[2018-05-17] MEDS: KETOROLAC 30 MG/ML VIAL IVP PRN ×3 (11:06→20:55)
--- NOTE | 2018-05-17 11:32 | NUR ---
NO EVIDENCE OF PULMONARY DISTRESS NOTED GOOD CHEST RISE
[2018-05-17] MEDS: INSULIN LISPRO SLIDING SCALE 100 UNITS/ML VIAL SUBQ PRN (12:09)
--- NOTE | 2018-05-17 12:10 | NUR ---
SPOKE WITH PT'S SON GURPREET REGARDING THE MEDICATION TRAVATAN. PER MR. GURPREET, FAMILY DOES NOT HAVE PT'S MEDICATIONS SINCE PT IS FROM SNF. DR. ONOFRE MADE AWARE. WILL FOLLOW UP ON ORDERS.
--- NOTE | 2018-05-17 12:54 | NUR ---
RESTING COMFORTABLY GOOD CHEST RISE AND AERATION THROUGHOUT LUNG MOREIRA AIRWAY PATENT TOLERATING VENTILATOR SUPPORT WITHOUT INCIDENT
--- NOTE | 2018-05-17 14:20 | NUR ---
PT RESTING COMFORTABLY. VITAL SIGNS STABLE. NO SIGNS OF DISTRESS NOTED AT THIS TIME.
--- NOTE | 2018-05-17 15:40 | NUR ---
NO SOB NOTED GOOD CHEST RISE
--- NOTE | 2018-05-17 15:55 | NUR ---
STOOL COLLECTED FOR OCCULT BLOOD. DR. ONOFRE MADE AWARE THAT STOOL IS NOT QUALIFIED FOR C. DIFF BECAUSE PT IS ON STOOL SOFTENERS.
--- NOTE | 2018-05-17 16:00 | NUR ---
PT CLEANED AND REPOSITIONED FOR COMFORT. TOLERATED WELL. PT IS ABLE TO HELP WITH REPOSITIONING. ORAL CARE GIVEN.
--- NOTE | 2018-05-17 17:28 | NUR ---
NO SOB NOTED GOOD CHEST RISE AND AERATION THROUGH PULMONARY MOREIRA AIRWAY PATENT
--- NOTE | 2018-05-17 18:05 | NUR ---
PT HAD MODERATE AMOUNT OF BLACK LIQUID BOWEL MOVEMENT. CLEANED AND MELONY CARE GIVEN. REPOSITIONED FOR COMFORT. TOLERATED WELL.
--- NOTE | 2018-05-17 18:36 | NUR ---
DR. ALCALA IN TO SEE AND EXAMINE PT. UPDATES GIVEN. WILL FOLLOW UP ON ORDERS.
--- NOTE | 2018-05-17 19:06 | NUR ---
Received pt stable on vent support at documented settings, suctioned scant amounts of thick white secretions, hhn tx given, tolerated well, no resp distress or SOB noted at this time, Portex 6 trach secured/patent/midline, alarms set and audible, vent plugged into red outlet, ambu bag at bedside, pulse ox on, will cont to monitor.
--- NOTE | 2018-05-17 19:20 | NUR ---
RECEIVED REPORT FROM MORNING NURSE. PT IS AWAKE, ALERT AND ORIENTED X 2. ABLE TO MAKE NEEDS KNOWN AND FOLLOWS COMMANDS. SINUS RHYTHM ON MONITOR. PT IS TRACH TO VENT WITH VENT SETTINGS: A/C RATE 12, TV 450, FIO2 28%, PEEP 5. BILATERAL LUNG SOUND RHONCHI NOTED. NO ACUTE RESPIRATORY DISTRESS NOTED. SR ON MONITOR. G-TUBE IN PLACE TO FEEDING GLUCERNA 1.2 20ML/HR, H2O FLUSH 50ML Q6H NOTED, 10ML RESIDUALS NOTED. ABDOMEN DISTENDED, NONTENDER. SALINE LOCK TO RIGHT G 22 AND PERIPHERAL LINE TO LEFT FORE ARM 22G INTACT, PATENT AND ASYMPTOMATIC. PT IS RECEIVING D51/2 NS AT 50 CC/HR. SKIN IS DRY AND WARM TO TOUCH. HOB 30 DEGREES, BED IN LOW POSITION AND CALL LIGHT WITHIN REACH. WILL CONTINUE TO MONITOR.
--- NOTE | 2018-05-17 19:23 | NUR ---
REPORT GIVEN TO NIGHT NURSE FOR CONTINUITY OF CARE. PT IS IN STABLE CONDITION.
[2018-05-17] MEDS: LATANOPROST 0.005% OP 2.5 ML BTL LEFT EYE SCH (21:07)
--- NOTE | 2018-05-17 21:15 | NUR ---
ADMINISTERED SCHEDULED MEDICATIONS ORDERED. BS CHECKED 147 NOTED. NO ACUTE DISTRESS NOTED. WILL CONTINUE TO MONITOR.
--- NOTE | 2018-05-17 22:30 | NUR ---
PATIENT HAD BOWEL MOVEMENT, LARGE AMOUNT BLACK LOOSE STOOL NOTED. PATIENT AWAKE, ALERT, NO ACUTE DISTRESS NOTED. WILL CONTINUE TO MONITOR.
[2018-05-18] VITALS (18 sets, daily range): BP systolic 98–128; BP diastolic 49–76
[2018-05-18] MEDS: KETOROLAC 30 MG/ML VIAL IVP PRN ×5 (01:06→21:49)
[2018-05-18] MEDS: LORazepam 1 MG TAB GT PRN ×2 (01:34→11:30)
--- NOTE | 2018-05-18 01:35 | NUR ---
PATIENT KEEP ASKING FOR NORCO PAIN MEDICATION, EXPLAINED THAT YOU ALREADY GOT PAIN MEDICATION, NAME IS TORADOL BY IV LINE. BUT PATIENT GOT ANXIOUS, ADMINISTERED PRN ATIVAN ORDERED. WILL CONTINUE TO MONITOR.
--- NOTE | 2018-05-18 02:30 | NUR ---
PATIENT HAD LARGE AMOUNT BLACK LOOSE BOWEL MOVEMENT NOTED. NO ACUTE DISTRESS NOTED. TOLERATED WELL WITH VENT. WILL CONTINUE TO MONITOR.
--- NOTE | 2018-05-18 04:30 | NUR ---
PATIENT AWAKE, ALERT. PATIENT ABLE TO SUCTION HIM SELF. NO ACUTE DISTRESS NOTED. WILL CONTINUE TO MONITOR.
[2018-05-18] MEDS: BRIMONIDINE TARTRATE 0.2% OP 5 ML BTL LEFT EYE SCH ×3 (05:25→21:30)
[2018-05-18] MEDS: PIPER/TAZO 2.25GM/D5W PREMIX 50 ML IV SCH ×3 (05:25→11:21)
--- NOTE | 2018-05-18 06:00 | NUR ---
PATIENT HAD BM, LARGE AMOUNT BLACK LOOSE STOOL NOTED. NO ACUTE DISTRESS NOTED.
[2018-05-18 06:19] LABS: BASOPHILS % (AUTO) 0.2 % (0.0-2.0); EOSINOPHILS # (AUTO) 0.5 K/uL (0-0.4); EOSINOPHILS % (AUTO) 2.4 % (0.0-4.0); HEMATOCRIT 25.9 % (36-52); HEMOGLOBIN 8.1 g/dL (12.0-18.0); LYMPHOCYTES # (AUTO) 1.6 K/uL (2.0-11.5); LYMPHOCYTES % (AUTO) 7.3 % (20.5-51.1); MEAN CORPUSCULAR HEMOGLOBIN 26 pg (27-31); MEAN CORPUSCULAR HGB CONC 31 g/dL (33-37); MEAN CORPUSCULAR VOLUME 81.7 fL (80-94); MONOCYTES # (AUTO) 1.3 K/uL (0.8-1.0); NEUTROPHILS # (AUTO) 18.5 K/uL (1.8-7.7); NEUTROPHILS % (AUTO) 84.1 % (42.2-75.2); PLATELET COUNT (AUTO) 430 K/uL (140-450); RED BLOOD CELL COUNT(AUTO) 3.17 MIL/uL (4.20-6.10); RED CELL DISTRIBUTION WIDTH 17.8 % (11.6-13.7); WHITE BLOOD COUNT (AUTO) 21.9 K/uL (4.8-10.8)
[2018-05-18 06:44] LABS: ANION GAP 11.1 (8-16); CARBON DIOXIDE 26.3 mmol/L (21-32); CHLORIDE 106 mmol/L (98-107); CREATININE 1.1 mg/dL (0.7-1.3); GLUCOSE 177 mg/dL (74-106); POTASSIUM 3.4 mmol/L (3.5-5.1); SODIUM SERUM 140 mmol/L (136-145); UREA NITROGEN, BLOOD 32 mg/dL (7-18)
[2018-05-18 06:49] LABS: MAGNESIUM 2.7 mg/dL (1.8-2.4); PHOSPHORUS 2.6 mg/dL (2.5-4.9)
[2018-05-18] MEDS: ALBUTEROL SULFATE/IPRATROPIU 3 ML SOL IH SCH ×3 (07:01→18:56)
--- NOTE | 2018-05-18 07:02 | NUR ---
RECEIVED PATIENT ON VENT SETTINGS AC/VC 450 RATE 12 +5 FIO2 28%. PATIENT IS TRACH'D WITH A PORTEX SIZE 6. AIRWAY IS PATENT AND CLEAR. COMPLETED INLINE TREATMENT OF DUONEB THAT PATIENT TOLERATED WELL WITH NO ADVERSE EFFECTS. B/S: CLEAR IN THE UPPER LOBES AND DIMINISHED IN THE BASES PRE AND POST TX. DID NOT SUCTION PATIENT. PATIENT HAS ACCESS TO YANKEUR AND CAPABILITY TO SUCTION ORAL SECRETIONS IF NEEDED. ALARMS AND SETTINGS VERIFIED ON VENT. VENT BRAKES ARE ON AND PLUGGED INTO RED OUTLET. AMBU BAG AT BEDSIDE. WILL CONTINUE TO MONITOR.
[2018-05-18] MEDS ORDERED: VANCOMYCIN PER PHARMACY MC PRN (07:05)
--- NOTE | 2018-05-18 07:30 | NUR ---
RECEIVED PT FROM PM NURSE, PT OPENS EYES SPONTANEOUSLY, ABLE TO FOLLOW SIMPLE COMMANDS. TRACH TO VENT WITH FIO2 28%,TV 450, RR 12, PEEP 5. LUNG SOUND RHONCHI, PT HAS G-TUBE FEEDING AT 30 MLS/HR, NO RESIDUAL NOTED. PT ALSO HAS IV TO RIGHT AC # 22 AND L FA # 20, SITE INTACT AND PATENT. RUNNING D5 1/2 NS AT 50 MLS/HR. SKIN NON INTACT ( SEE WOUND ASSESSMENT), CALL LIGHT IN REACH, HOB ELEVATED AT 30 DEGREES WITH LOW BED POSITION, WILL CONTINUE TO MONITOR.
[2018-05-18] MEDS: INSULIN LISPRO SLIDING SCALE 100 UNITS/ML VIAL SUBQ PRN ×3 (07:43→21:49)
[2018-05-18] MEDS: BLOOD GLUCOSE MONITORING 1 DEV DEV FS SCH ×4 (07:44→21:48)
--- NOTE | 2018-05-18 08:00 | NUR ---
TURNED AND REPOSITIONED PT, PT HAD MODERATE AMOUNT OF LOOSE BACK STOOL, CLEANED PT. ORAL CARE GIVEN.
[2018-05-18] MEDS: PANTOPRAZOLE 40 MG INJ VIAL IVP SCH (08:10)
[2018-05-18] MEDS: LACTOBACILLUS RHAMNOSUS GG 1 EACH CAP PEG SCH (08:10)
[2018-05-18] MEDS: LISINOPRIL 20 MG TAB GT SCH (08:10)
[2018-05-18] MEDS: ASPIRIN 81 MG TAB.CHEW GT SCH (08:11)
[2018-05-18] MEDS: SENNA 8.6 MG TAB PO SCH ×2 (08:11→12:02)
[2018-05-18] MEDS: PREGABALIN 50 MG CAP GT SCH ×2 (08:11→21:29)
[2018-05-18] MEDS: metFORMIN 500 MG TAB GT SCH ×2 (08:11→21:29)
[2018-05-18] MEDS: DOCUSATE SODIUM 100 MG GELCAP PO SCH (08:12)
[2018-05-18] MEDS: ATENOLOL 25 MG TAB GT SCH (08:12)
[2018-05-18] MEDS: FUROSEMIDE 40 MG/5 ML ORAL SOL UDC GT SCH (08:12)
[2018-05-18] MEDS: LACTULOSE 20 GM/30 ML UDC PO SCH (08:13)
[2018-05-18] MEDS: GLIMEPIRIDE 2 MG TAB GT SCH (08:13)
[2018-05-18] MEDS: DEXT 5% / NACL 0.45% 1,000 ML IV SCH (09:00)
[2018-05-18] MEDS ORDERED: KCL 20 MEQ/WATER INJ PREMIX 100 ML IV SCH (09:00)
--- NOTE | 2018-05-18 10:39 | NUR ---
REASON FOR EVALUATION: LOW NANI SCORE SKIN ASSESSMENT DONE WITH PRIMARY RN AT 0845 WITH THIS 82 Y/O MALE PT ADMITTED FROM [facility] TO [facility] WITH INITIAL DX HEMATURIA, CONSTIPATION AND PNA. 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 ALL ABOVE INFORMATION OBTAINED FROM ADMISSION H&P. LABS ARE WBC 21.9, H/H 8.1/25.9 GLUCOSE 117 AND ALBUMIN 3.2. PT IS AWAKE. SKIN IS WARM AND DRY, BLE NO HAIR GROWTH, NO EDEMA. DORSAL PEDAL PULSES PRESENT AND NORMAL. CAPILLARY REFILLED < 2 SEC. X 10 TOES. INCONTINENT OF BOWEL, F/C PATENT WITH SMALL AMOUNT OF DARK YELLOW URINE OUTPUT. PLAN OF CARE DISCUSSED WITH PRIMARY RN. INTEGUMENTARY: -TRACH SITE MELONY STOMA SKIN DRY AND CLEAN. SKIN INTACT. - GT SITE MELONY STOMA SKIN EROSION AND REDNESS WITH SKIN INTACT. OOZING SMALL AMOUNT OF STOMACH FLUIDS CONTENT -ABDOMEN DISTENDED, NON-TENDER TO TOUCH. -RIGHT ANTERIOR THIGH HEALED SCAR SKIN GRAFT DONOR SITE -RIGHT LOWER MEDIAL LEG OLD HEALED SCAR -RIGHT LOWER LATERAL LEG OLD HEALED SCAR SKIN GRAFT RECIPIENT SITE RECOMMENDATIONS: -KEEP SKIN DRY AND CLEAN AT ALL TIMES, PLEASE CHECK Q2H AND PRN FOR INCONTINENCY OF BOWEL AND BLADDER. - CLEANSE GT SITE MELONY STOMA SKIN EROSION WITH WOUND CARE SOLUTION, PAT DRY, APPLY GYDRAGUARDTO GT-SITE MELONY-STOMA SKIN AND COVER WITH SPLIT DRESSING BIDWC AND PRN IF SOLING -APPLY HYDRAGUARD TO R/L LOWER EXTREMITIES BIDWC AND PRN IF SOILING -OFFLOAD BILATERAL HEELS BY PLACING PILLOWS UNDER CALVES UNLESS OTHERWISE CONTRAINDICATED -PRESSURE REDISTRIBUTION SURFACE THERAPY -TURN AND REPOSITION Q2H, OFFLOAD SACRALCOCCYX AND BUTTOCKS BY TURNING RIGHT AND LEFT ALL ABOVE RECOMMENDATIONS DISCUSSED WITH PRIMARY RN. WILL FOLLOW UP PT Q7-10 DAYS. PLEASE CONTACT WOUND CARE NURSE FOR ANY QUESTION AND CHANGE OF WOUND CONDITION.
--- NOTE | 2018-05-18 11:03 | NUR ---
VENT CHECK AND ASSESS AIRWAY PATENCY. PATIENT AWAKE AND WATCHING TV. PATIENT HAS YANKEUR IN HAND AND WAS ABLE TO COUGH UP SECRETIONS AND SUCTION HIMSELF. B/S: COARSE IN THE RIGHT UPPER LOBE UNTIL PATIENT CLEARED SECRETIONS THEN B/S WERE CLEAR. PATIENT APPEARS COMFORTABLE WITH NO RESPIRATORY DISTRESS OR SOB. WILL CONTINUE TO MONITOR.
[2018-05-18] MEDS: VANCOMYCIN 750 MG in DEXTROSE 5% 250 ML IV SCH ×2 (11:13→21:41)
--- NOTE | 2018-05-18 12:00 | NUR ---
TURNED AND REPOSITIONED WITH CHARGE NURSE, PT HAD MODERATE AMOUNT OF BLACK LOOSE STOOL, CLEANED PT, NO S/S OF RESPIRATORY DISTRESS NOTED.
--- NOTE | 2018-05-18 13:50 | NUR ---
VENT AND AIRWAY PATENCY CHECK. B/S: CLEAR. CHANGED HME. WILL CONTINUE TO MONITOR.
[2018-05-18] MEDS: HYDRAGUARD CREAM TP SCH (14:50)
--- NOTE | 2018-05-18 15:32 | NUR ---
VENT AND AIRWAY PATENCY CHECK. PATIENT SLEEPING AND APPEARS COMFORTABLE WITH NO SOB.
--- NOTE | 2018-05-18 16:24 | NUR ---
TUBE FEED RECOMMENDATIONS WERE GIVEN TO MD. VITAL AF @ 65 ML/HR GOAL RATE, START AT 20 ML/HR, INCREASE BY 20 ML/HR Q6H. FREE WATER FLUSH [address]
--- NOTE | 2018-05-18 17:40 | NUR ---
VENT AND AIRWAY PATENCY CHECK AND TRACH CARE. CHANGED INNER CANNULA AND TRACH GAUZE. ASSESSED TRACH AREA THAT IS CLEAN, INTACT AND OBSERVED NO REDNESS OR IRRITATION. GAUZE HAD A SMALL AMOUNT OF CLEAR AND LIGHT YELLOW DRAINAGE. PATIENT WAS AWAKE, ALERT AND STATED THAT HE DOES NOT NEED SUCTIONING. PATIENT HAD YANKEUR IN HAND AND WAS SUCTIONING HIS MOUTH.
--- NOTE | 2018-05-18 18:11 | NUR ---
TURNED AND REPOSITIONED WITH CHARGE NURSE, PT HAD MODERATE AMOUNT OF BLACK LOOSE STOOL, CLEANED PT, NO S/S OF RESPIRATORY DISTRESS NOTED.
--- NOTE | 2018-05-18 19:20 | NUR ---
RECEIVED REPORT FROM MORNING NURSE. PT IS AWAKE, ALERT AND ORIENTED X 2. ABLE TO MAKE NEEDS KNOWN AND FOLLOWS COMMANDS. SINUS RHYTHM ON MONITOR. PT IS TRACH TO VENT WITH VENT SETTINGS: A/C RATE 12, TV 450, FIO2 28%, PEEP 5. BILATERAL LUNG SOUND RHONCHI NOTED. NO ACUTE RESPIRATORY DISTRESS NOTED. SR ON MONITOR. G-TUBE IN PLACE TO FEEDING VITAL 1.2 20ML/HR, H2O FLUSH 50ML Q6H NOTED, 10ML RESIDUALS NOTED. ABDOMEN DISTENDED, NONTENDER. PERIPHERAL LINE TO LEFT FORE ARM 22G INTACT, PATENT AND ASYMPTOMATIC. PT IS RECEIVING D51/2 NS AT 50 ML/HR. SKIN IS DRY AND WARM TO TOUCH. HOB 30 DEGREES, BED IN LOW POSITION AND CALL LIGHT WITHIN REACH. WILL CONTINUE TO MONITOR.
[2018-05-18] MEDS: DOCUSATE 100 MG/10 ML UDC PO SCH (21:29)
[2018-05-18] MEDS: LATANOPROST 0.005% OP 2.5 ML BTL LEFT EYE SCH (21:30)
--- NOTE | 2018-05-18 21:50 | NUR ---
ADMINISTERED SCHEDULED MEDICATIONS ORDERED. BS CHECKED 152 NOTED. GIVEN INSULIN 2UNITS. PATIENT HAD SMALL AMOUNT OF BLACK LOOSE STOOL WITH URINATION NOTED. WILL CONTINUE TO MONITOR.
--- NOTE | 2018-05-18 22:50 | NUR ---
DR. GIL AT BEDSIDE TO CHECK THE PATIENT. WILL FOLLOW THE ORDER.
[2018-05-18] MEDS ORDERED: GENTAMICIN PER PHARMACY MC PRN (22:55)
[2018-05-19] VITALS (18 sets, daily range): BP systolic 118–148; BP diastolic 56–97
[2018-05-19] MEDS ORDERED: GENTAMICIN 120 MG in NACL 0.9% 100 ML IV SCH ×2
[2018-05-19] MEDS ORDERED: CLINDAMYCIN 600 MG in DEXTROSE 5% 50 ML IV SCH ×2
--- NOTE | 2018-05-19 | NUR ---
TUBE FEEDING CHECKED, PATIENT TOLERATED WELL, LESS THAN 5CC RESIDUAL NOTED. INCREASED TO 40ML/HR. WILL CONTINUE TO MONITOR.
[2018-05-19] MEDS ORDERED: GENTAMICIN 80 MG/2 ML VIAL ONE (00:26)
[2018-05-19] MEDS ORDERED: CLINDAMYCIN 600 MG/4 ML VIAL ONE (00:26)
[2018-05-19] MEDS: HYDRAGUARD CREAM TP SCH ×2 (01:17→13:03)
--- NOTE | 2018-05-19 02:00 | NUR ---
NO ACUTE DISTRESS NOTED. RESIDUAL CHECKED 10CC NOTED. TOLERATED WELL WITH FEEDING. WILL CONTINUE TO MONITOR.
[2018-05-19] MEDS: KETOROLAC 30 MG/ML VIAL IVP PRN ×5 (02:42→23:15)
[2018-05-19] MEDS: DEXT 5% / NACL 0.45% 1,000 ML IV SCH (02:48)
--- NOTE | 2018-05-19 02:50 | NUR ---
PATIENT ASKING PAIN MEDICATION FOR ACHING PAIN ALL OVER HIS BODY, ADMINISTERED PRN PAIN MEDICATION ORDERED. PATIENT HAD BOWEL MOVEMENT, SMALL AMOUNT BLACK LOOSE STOOL NOTED. WILL CONTINUE TO MONITOR.
[2018-05-19] MEDS: BRIMONIDINE TARTRATE 0.2% OP 5 ML BTL LEFT EYE SCH ×3 (04:37→20:24)
--- NOTE | 2018-05-19 05:00 | NUR ---
ADMINISTERED EYE DROPS FOR GLAUCOMA TO LEFT EYE. NO ACUTE DISTRESS NOTED. TOLERATED WELL WITH TUBE FEEDING. WILL CONTINUE TO MONITOR.
[2018-05-19 05:06] LABS: BASOPHILS # (AUTO) 0.1 K/uL (0.00-0.22); BASOPHILS % (AUTO) 0.3 % (0.0-2.0); EOSINOPHILS # (AUTO) 0.4 K/uL (0-0.4); EOSINOPHILS % (AUTO) 2.4 % (0.0-4.0); HEMATOCRIT 26.9 % (36-52); HEMOGLOBIN 8.6 g/dL (12.0-18.0); LYMPHOCYTES # (AUTO) 1.6 K/uL (2.0-11.5); MEAN CORPUSCULAR HEMOGLOBIN 26 pg (27-31); MEAN CORPUSCULAR HGB CONC 32 g/dL (33-37); MONOCYTES # (AUTO) 0.9 K/uL (0.8-1.0); MONOCYTES % (AUTO) 5.3 % (1.7-9.3); NEUTROPHILS # (AUTO) 14.5 K/uL (1.8-7.7); PLATELET COUNT (AUTO) 458 K/uL (140-450); RED BLOOD CELL COUNT(AUTO) 3.28 MIL/uL (4.20-6.10); RED CELL DISTRIBUTION WIDTH 18.3 % (11.6-13.7); WHITE BLOOD COUNT (AUTO) 17.5 K/uL (4.8-10.8)
[2018-05-19 05:29] LABS: ANION GAP 12.3 (8-16); CARBON DIOXIDE 25.3 mmol/L (21-32); CHLORIDE 104 mmol/L (98-107); CREATININE 0.8 mg/dL (0.7-1.3); GLUCOSE 146 mg/dL (74-106); POTASSIUM 3.6 mmol/L (3.5-5.1); SODIUM SERUM 138 mmol/L (136-145); UREA NITROGEN, BLOOD 23 mg/dL (7-18)
[2018-05-19 06:21] LABS: MAGNESIUM 2.6 mg/dL (1.8-2.4)
[2018-05-19] MEDS: ALBUTEROL SULFATE/IPRATROPIU 3 ML SOL IH SCH ×3 (06:44→18:52)
--- NOTE | 2018-05-19 06:44 | NUR ---
REC'D PT ON [employer]E VENT SETTINGS AC12 VT 450 PEEP 5 FIO2 28% ALARMS ON AND AUDIBLE AND AMBU BAG AT SIDE OF VENT AND VENT IS PLUGGED INTO RED OUTLET, I\L TX GIVEN WITH DUONEB 3ML WITH NO ADVERSE REACTION POST TX, B\S ARE CLEAR BILATERALLY, NO SXN REQUIRED AT THIS TIME, PT IS AWAKE WITH NO SIGNS OF DISTRESS NOTED, PT IS TRACH WITH PORTEX 6 AND SKIN INTEGRITY IS INTACT
--- NOTE | 2018-05-19 06:58 | NUR ---
vent check airway is patent student nurses and instructor at bedside
[2018-05-19] MEDS: BLOOD GLUCOSE MONITORING 1 DEV DEV FS SCH ×4 (07:17→20:13)
[2018-05-19] MEDS: INSULIN LISPRO SLIDING SCALE 100 UNITS/ML VIAL SUBQ PRN ×4 (07:19→20:35)
--- NOTE | 2018-05-19 07:30 | NUR ---
RECEIVED REPORT FROM BRICK PAVING CHECKER NURSE AT BEDSIDE, PT IS AAOX3, NON-VERBAL, ABLE TO FOLLOW COMMANDS AND MAKE NEEDS KNOWN. VSS, DENIES PAIN, TRACH TO VENT WITH SETTING FIO2 28%, AC 12, TV 450, PEEP 5, NO S/S OF DISTRESS, CLEAR LUNG SOUNDS DAPHNE. COUGH WITH WHITE SPUTUM NOTED. DENIES CHEST PAIN, SR ON GARMENT MANUFACTURING SUPERVISOR, DISTENDED ABDOMEN NOTED, GT IN PLACE FEEDING WITH GLUCERNA AT 60ML/HR, 5ML RESIDUALS NOTED, GT SITE REDNESS AND LEAKING WITH FOUL SMELL NOTED, HILLIARD CATHETER IN PLACE WITH CLOUDY YELLOW URINE VIA GRAVITY. SKIN IS WARM AND DRY TO TOUCH, GENERALIZED WEAKNESS NOTED, IV SITE TO RIGHT AC, 22GA, PATENT, RUNNING D5 1/2 NS AT 50ML/HR. ON CONTACT ISOLATION, HOB ELEVATED TO 30 DEGREES, ORAL CARE PROVIDED, POSITION CHANGED FOR OFF LOAD PRESSURE, SAFETY MEASURE IN PLACE, CALL LIGHT WITHIN REACH, WILL CONTINUE TO MONITOR.
[2018-05-19] MEDS: NACL 0.9% 1,000 ML IV SCH (08:15)
[2018-05-19] MEDS: CLINDAMYCIN PHOS 600MG/D5W PM 50 ML IV SCH ×3 (08:27→23:14)
[2018-05-19] MEDS: PANTOPRAZOLE 40 MG INJ VIAL IVP SCH (08:27)
[2018-05-19] MEDS: GLIMEPIRIDE 2 MG TAB GT SCH (08:32)
[2018-05-19] MEDS: ASPIRIN 81 MG TAB.CHEW GT SCH (08:32)
[2018-05-19] MEDS: metFORMIN 500 MG TAB GT SCH ×2 (08:33→20:13)
[2018-05-19] MEDS: FUROSEMIDE 40 MG/5 ML ORAL SOL UDC GT SCH (08:35)
[2018-05-19] MEDS: PREGABALIN 50 MG CAP GT SCH ×2 (08:35→20:14)
[2018-05-19] MEDS: ATENOLOL 25 MG TAB GT SCH (08:37)
[2018-05-19] MEDS: LISINOPRIL 20 MG TAB GT SCH (08:39)
[2018-05-19] MEDS: LACTOBACILLUS RHAMNOSUS GG 1 EACH CAP PEG SCH (08:39)
[2018-05-19] MEDS: LACTULOSE 20 GM/30 ML UDC PO SCH (08:40)
[2018-05-19] MEDS: DOCUSATE 100 MG/10 ML UDC PO SCH ×2 (08:41→20:13)
--- NOTE | 2018-05-19 09:00 | NUR ---
SCHEDULED MEDICATION GIVEN VIA GT, PT TOLERATED WELL.
[2018-05-19] MEDS: FERROUS SULFATE 300 MG/5 ML UDC GT SCH (09:42)
[2018-05-19] MEDS: ASCORBIC ACID 500 MG TAB PO SCH (09:42)
[2018-05-19] MEDS ORDERED: SODIUM FERRIC GLUCONATE 125 MG in NACL 0.9% 100 ML IV SCH (10:00)
--- NOTE | 2018-05-19 10:47 | NUR ---
VENT CHECK, PT DID NOT WANT TO BE SXN AT THIS TIME AIRWAY IS PATENT
--- NOTE | 2018-05-19 12:00 | NUR ---
NO S/S OF DISTRESS, VSS, DENIES PAIN, ORAL CARE PROVIDED, POSITION CHANGED FOR OFF LOAD PRESSURE.
--- NOTE | 2018-05-19 12:00 | NUR ---
Management Architect Notes: I called [facility] at and I spoke to Esthela from admissions to confirm that she received patient's clinical information and MD Order to return to the facility for IV antibiotics and an isolation bed. Per Esthela she did reviewed patient's information, and stated that she will review it and will be contacting these chief underwriter back to give me an Isolation room and accepting MD who will be following patient's care in their facility. Carmelo Proctor patient on a vent to track and has no issues getting his medications. Carmelo Esthela Patient has son Ranjit as patient's health care decision maker. Carmelo Proctor Patient is able to return to the facility when he is ready and clear for a discharge
[2018-05-19] MEDS: ACETAMINOPHEN 650 MG/20.3 ML UDC GT PRN ×2 (12:53→20:13)
--- NOTE | 2018-05-19 12:58 | NUR ---
VENT CHECK, I\L TX GIVEN WITH DUONEB 3ML WITH NO ADVERSE REACTION POST TX B\S ARE CLEAR AND NO SXN REQUIRED AT THIS TIME AIRWAY PATENT
--- NOTE | 2018-05-19 14:35 | NUR ---
05/19/18 RD FOLLOW UP COMPLETED PLEASE REFER TO NUTRITION ASSESSMENT UNDER CARE ACTIVITY FOR ESTIMATED NUTRITIONAL NEEDS. 1. CONTINUE VITAL @65 ML/HR -THIS WILL PROVIDE 1560 ML, 1872 KCAL, AND 117 GM OF PROTEIN MEETING 100% OF ESTIMATED NEEDS. 2. FREE WATER FLUSH [address] TO FOLLOW-UP 2-3 DAYS, HIGH RISK DIDIER ALMODOVAR, RD
--- NOTE | 2018-05-19 15:02 | NUR ---
vent check, sxn pt no return of secretions pt is awake with no signs of distress note
--- NOTE | 2018-05-19 15:28 | NUR ---
CM NOTE RECEIVED CALL FROM NURSE CARMICHAEL OF [facility] PH# [phone] WHO STATED THAT THEY CANNOT TAKE PATIENT BACK TO THEIR FACILITY WHILE PATIENT HAS ACTIVE PSEUDOMONAS MDRO-ASPHALT TILE FLOOR LAYER INFECTION BECAUSE THEY CURRENTLY DO NOT HAVE BEDS AVAILABLE FOR ACTIVE CASES OF ASPHALT TILE FLOOR LAYER. DR. DRIVER MADE AWARE. JOSE EDUARDO HARGROVE AWARE.
--- NOTE | 2018-05-19 16:00 | NUR ---
NO CHANGE OF CONDITION AT THIS TIME, VSS, DENIES PAIN, ORAL CARE PROVIDED, PM CARE PROVIDED, POSITION CHANGED FOR OFF LOAD PRESSURE.
--- NOTE | 2018-05-19 16:54 | NUR ---
VENT CHECK, NO SXN NEEDED PT IS AWAKE WITH NO SIGNS OF DISTRESS NOTED AT THIS TIME, TRACH CARE DONE
[2018-05-19] MEDS: LORazepam 1 MG TAB GT PRN (17:09)
--- NOTE | 2018-05-19 18:59 | NUR ---
Received pt stable on vent support at documented settings, suctioned scant amount of thin white secretions, hhn tx given, tolerated well, no resp distress or SOB noted at this time, Portex 6 trach secured/patent/midline, alarms set and audible, ambu bag at bedside, vent plugged into red outlet, pulse ox on, will cont to monitor.
--- NOTE | 2018-05-19 19:11 | NUR ---
REPORT GIVEN TO CD[facility] DRIVER NURSE FOR CONTINUE OF CARE, PT IS IN STABLE CONDITION AT THIS TIME.
--- NOTE | 2018-05-19 19:15 | NUR ---
RECEIVED REPORT FROM MORNING SHIFT RNJOSE C FOR CONTINUITY OF CARE. AFEBRILE, PERRL, PT IS ABLE TO RESPOND TO COMMANDS AND MAKE NEEDS KNOWN USING CLIP BOARD OR "MOUTHING" HIS REQUEST. PT IS TRACH TO VENT FI02=28, RQ=314, RATE 12, PEEP 5, PMAX 60. WHEEZES HEARD ON UPPER BILATERAL LOBES ON AUSCULTATION, DIMINISHED IN LOWER BILATERAL LOBES. SR ON CASINO ATTENDANT. GTUBE SET TO FEEDING VITALS AF AT 65ML/HR, 100ML Q4H FLUSH. BLADDER AN BOWEL INCONTINENCE, NO HILLIARD IN PLACE. SCDS ON BOTH BILATERAL LEGS. RIGHT AC 20 GAUGE INFUSING NS AT 50ML/HR. OLD SCAR WITH DISCOLORATION NOTED ON RIGHT LOWE LEG. SKIN IS NORMAL IN COLOR, DRY, AND WARM TO TOUCH. GENERALIZED WEAKNESS, CONTACT AND FALL PRECAUTIONS NOTED, HOB ELEVATED ABOVE 30 DEG, SIDE RAILS UP X4, CALL LIGHT WITHIN REACH.
[2018-05-19] MEDS: LATANOPROST 0.005% OP 2.5 ML BTL LEFT EYE SCH (20:37)
--- NOTE | 2018-05-19 20:50 | NUR ---
DR. MACDONALD IN TO SEE TO PATIENT.
--- NOTE | 2018-05-19 21:56 | NUR ---
PT IS INCONTINENT OF BOWEL AND BLADDER. LARGE BM, SILVERIO-BLACK IN COLOR, PASTY CONSISTENCY. NEW GOWN AND LINEN PROVIDED. HOB ELEVATED ABOVE 30 DEG, SCDS ON BILATERAL LEGS. PT REPOSITIONED. PT IS CALM AND RELAXED WATCHING TELEVISION AT THIS TIME, CALL LIGHT WITHIN REACH.
[2018-05-19] MEDS: GENTAMICIN 120 MG in DEXTROSE 5% 100 ML IV SCH (23:14)
--- NOTE | 2018-05-19 23:30 | NUR ---
ORAL CARE PROVIDED AT BEDSIDE, PT ABLE TO ASSIST WITH SUCTIONING HIMSELF TO REMOVE ORAL SECRETIONS.
[2018-05-20] VITALS (18 sets, daily range): BP systolic 113–154; BP diastolic 57–94
--- NOTE | 2018-05-20 00:49 | NUR ---
PT SLEEPING, HOB ELEVATED ABOVE 20 DEG, GT TO FEED 65ML/HR, NS INFUSING AT 50ML/HR. SCDS ON BILATERAL LEGS.
--- NOTE | 2018-05-20 00:58 | NUR ---
BRITTNEY GARRETT, AT BEDSIDE.
[2018-05-20] MEDS: HYDRAGUARD CREAM TP SCH ×2 (01:07→12:33)
[2018-05-20] MEDS: ACETAMINOPHEN 650 MG/20.3 ML UDC GT PRN ×2 (02:49→16:51)
--- NOTE | 2018-05-20 03:50 | NUR ---
CALLED RT FOR ASSESSMENT OF TRACH. RT AT BEDSIDE, SUCTION PROVIDED.
--- NOTE | 2018-05-20 04:35 | NUR ---
PT HAD LARGE DARK CAMERON-BLACK PASTY-LIKE STOOL. CLEANSED PERINEUM AND REPOSITIONED ,FRESH PADS AND PILLOW SUPPORT PROVIDED. HOB ELEVATED, BED IN LOWEST POSITION. NGT TO FEED, PT TOLERATING WELL. NS INFUSING AT 50ML/HR TO RIGHT AC 20 GAUGE. CONTACT PRECAUTIONS MAINTAINED.
--- NOTE | 2018-05-20 04:48 | NUR ---
PT SLEEPING AT THIS TIME.
[2018-05-20 05:03] LABS: LYMPHOCYTES % (AUTO) 12.5 % (20.5-51.1); MONOCYTES # (AUTO) 1.1 K/uL (0.8-1.0); NEUTROPHILS # (AUTO) 12.3 K/uL (1.8-7.7)
[2018-05-20] MEDS: NACL 0.9% 1,000 ML IV SCH (05:03)
[2018-05-20 05:20] LABS: CARBON DIOXIDE 26.3 mmol/L (21-32); CHLORIDE 106 mmol/L (98-107); CREATININE 0.9 mg/dL (0.7-1.3); GLUCOSE 163 mg/dL (74-106); POTASSIUM 3.3 mmol/L (3.5-5.1); SODIUM SERUM 138 mmol/L (136-145); UREA NITROGEN, BLOOD 20 mg/dL (7-18)
[2018-05-20 05:24] LABS: MAGNESIUM 2.2 mg/dL (1.8-2.4); PHOSPHORUS 2.7 mg/dL (2.5-4.9)
[2018-05-20] MEDS: BRIMONIDINE TARTRATE 0.2% OP 5 ML BTL LEFT EYE SCH ×3 (05:25→21:16)
[2018-05-20 05:56] LABS: MONOCYTES % (AUTO) 6.9 % (1.7-9.3); WHITE BLOOD COUNT (AUTO) 15.7 K/uL (4.8-10.8)
[2018-05-20 06:07] LABS: BASOPHILS % (AUTO) 0.1 % (0.0-2.0); EOSINOPHILS # (AUTO) 0.4 K/uL (0-0.4); EOSINOPHILS % (AUTO) 2.4 % (0.0-4.0); HEMATOCRIT 23.8 % (36-52); HEMOGLOBIN 7.5 g/dL (12.0-18.0); MEAN CORPUSCULAR HEMOGLOBIN 26 pg (27-31); MEAN CORPUSCULAR HGB CONC 32 g/dL (33-37); MEAN CORPUSCULAR VOLUME 82.4 fL (80-94); NEUTROPHILS % (AUTO) 78.1 % (42.2-75.2); PLATELET COUNT (AUTO) 466 K/uL (140-450); RED BLOOD CELL COUNT(AUTO) 2.89 MIL/uL (4.20-6.10); RED CELL DISTRIBUTION WIDTH 18.1 % (11.6-13.7)
--- NOTE | 2018-05-20 06:35 | NUR ---
CALLED RT, INFORMED PT BECOMING AGITATED WITH TRACH/TRACH COLLAR AND MOTIONED FOR ME TO REMOVE IT. INFORMED PT THAT I COULD NOT, IT IS NOT SAFE. RT ADVISED TO PLACE MITTS ON PT IF NECESSARY, BECAUSE PT HAS DISLODGE TUBING FROM SUCTION CANNISTER DAYS PRIOR. PT CONTINUOUSLY SUCTIONS SECRETIONS IN HIS MOUTH
--- NOTE | 2018-05-20 06:47 | NUR ---
PATIENT WAS FOUND BY HER PRIMARY RN ABBEY TAKING OUT HIS TRACH COLLAR WITH HIS RIGHT HAND . ADVISED PATIENT NOT TO DO IT AND EXPLAINED THE RISK OF DISLODGING HIS TRACH. PATIENT DIDN'T COMPLY AND REPEATED HIS ACTION. RIGHT HAND MITTEN PLACED TO PREVENT INJURY TO PATIENT.
[2018-05-20] MEDS: BLOOD GLUCOSE MONITORING 1 DEV DEV FS SCH ×4 (06:48→21:15)
[2018-05-20] MEDS: ALBUTEROL SULFATE/IPRATROPIU 3 ML SOL IH SCH ×3 (06:51→19:09)
--- NOTE | 2018-05-20 06:51 | NUR ---
RECEIVED ON A [employer] R860 VENTILATOR PLUGGED INTO RED OUTLET TOLERATING WELL WITHOUT ADVERSE REACTIONS NOTED TO A PORTEX DFEN #6 AIRWAY SECURED WITH A JANY TRACH TIE CUFF PRESSURE CHECKED NOTED LOC AWAKE ALERT AND SLIGHTLY IRRITABLE AMBU BAG NOTED AT BEDSIDE BREATH SOUNDS DIMINISHED BILATERAL WITH GOOD CHEST RISE AIRWAY PATENT
[2018-05-20] MEDS: INSULIN LISPRO SLIDING SCALE 100 UNITS/ML VIAL SUBQ PRN ×4 (06:58→21:17)
[2018-05-20] MEDS ORDERED: KCL 20 MEQ/WATER INJ PREMIX 100 ML IV SCH (07:00)
--- NOTE | 2018-05-20 07:25 | NUR ---
PROVIDED BEDSIDE REPORT TO MORNING SHIFT RNBANDAR, FOR CONTINUITY OF CARE.
--- NOTE | 2018-05-20 07:25 | NUR ---
RECEIVED REPORT FROM GARAGE DOOR HANGER RN. PT RESTING IN BED COMFORTABLY. A/O X3. ABLE TO MAKE NEEDS KNOWN. SR ON MONITOR. PUPILS REACTIVE TO LIGHT. LUNGS CLEAR. RT AC 20 G INTACT WITH GOOD BLOOD RETURNS. NS RUNNING AT 50 ML/HR. ABDOMEN FIRM, ROUND AND NON-TENDER. ACTIVE BOWEL SOUND. G-TUBE NOTED ON LUQ. RESIDUAL 0. VITAL AF RUNNING AT 65 ML/HR. INCONTINENT TO B&B. REDNESS NOTED ON BUE. S/P SURGICAL SCAR NOTED ON RIGHT THIGH AND RIGHT LOWER EXTREMITY. REDNESS ON TOES ON BLE. SCAR NOTED ON SACRAL AREA. KEPT HOB ELEVATED. CALL LIGHT WITHIN REACH. BED IN LOW POSITION LOCKED. WILL CONTINUE TO MONITOR.
[2018-05-20] MEDS: KETOROLAC 30 MG/ML VIAL IVP PRN ×2 (07:45→17:58)
[2018-05-20] MEDS: CLINDAMYCIN PHOS 600MG/D5W PM 50 ML IV SCH ×3 (07:52→23:06)
--- NOTE | 2018-05-20 08:15 | NUR ---
PROVIDED MORNING CARE. KEPT PT CLEAN AND DRY. WILL CONTINUE TO MONITOR.
[2018-05-20 08:42] LABS: FOLIC ACID 15.2 ng/mL (>3.0)
[2018-05-20] MEDS: GLIMEPIRIDE 2 MG TAB GT SCH (09:28)
[2018-05-20] MEDS: FERROUS SULFATE 300 MG/5 ML UDC GT SCH (09:29)
[2018-05-20] MEDS: ASPIRIN 81 MG TAB.CHEW GT SCH (09:29)
[2018-05-20] MEDS: metFORMIN 500 MG TAB GT SCH ×2 (09:29→21:15)
[2018-05-20] MEDS: PREGABALIN 50 MG CAP GT SCH ×2 (09:30→21:15)
[2018-05-20] MEDS: ATENOLOL 25 MG TAB GT SCH (09:30)
[2018-05-20] MEDS: FUROSEMIDE 40 MG/5 ML ORAL SOL UDC GT SCH (09:30)
[2018-05-20] MEDS: LACTOBACILLUS RHAMNOSUS GG 1 EACH CAP PEG SCH (09:31)
[2018-05-20] MEDS: LISINOPRIL 20 MG TAB GT SCH (09:31)
[2018-05-20] MEDS: PANTOPRAZOLE 40 MG INJ VIAL IVP SCH (09:31)
[2018-05-20] MEDS: ASCORBIC ACID 500 MG TAB PO SCH (09:32)
[2018-05-20] MEDS: DOCUSATE 100 MG/10 ML UDC PO SCH ×2 (09:32→21:15)
[2018-05-20] MEDS: LACTULOSE 20 GM/30 ML UDC PO SCH (09:32)
--- NOTE | 2018-05-20 09:40 | NUR ---
RESTING COMFORTABLY NO EVIDENCE OF PULMONARY DISTRESS NOTED DEEP TRACHEAL SUCTION FOR MODERATE THICK PALE WHITE TO CLEAR SECRETIONS AIRWAY PATENT
--- NOTE | 2018-05-20 11:05 | NUR ---
NO APPARENT RESPIRATORY DISTRESS NOTED GOOD CHEST RISE VETERINARY EPIDEMIOLOGIST TO MONITOR
--- NOTE | 2018-05-20 11:48 | NUR ---
CLINICAL SYSTEMS EDUCATOR REQUEST FOR STAND-BY DR GUIDO AT BEDSIDE FOR UPPER EGD AND PEG PLACEMENT Addendum: 05/20/18 at 1532 by Landon Golden RT NOTED FOR WRONG PATIENT
--- NOTE | 2018-05-20 12:35 | NUR ---
CALL LIGHT ANSWERED. ADMINISTERED MEDICATION ORDERED. TOLERATING WELL. NO CHANGE IN LOC. WILL CONTINUE TO MONITOR.
--- NOTE | 2018-05-20 13:52 | NUR ---
RT AT BEDSIDE.
--- NOTE | 2018-05-20 13:54 | NUR ---
PAGED DR. DRIVER X2. WAITING FOR CALL BACK.
--- NOTE | 2018-05-20 15:23 | NUR ---
NO APPARENT DISTRESS NOTED AT THIS TIME GOOD CHEST RISE TOLERATING VENTILATORY SUPPORT WELL WITHOUT INCIDENT AIRWAY PATENT
--- NOTE | 2018-05-20 16:28 | NUR ---
KEPT PT CLEAN AND DRY. RESTING IN BED COMFORTABLY.
--- NOTE | 2018-05-20 17:49 | NUR ---
NO DISTRESS NOTED GOOD CHEST RISE DEEP TRACHEAL SUCTION FOR SMALL THICK YELLOW SECRETIONS AIRWAY PATENT
--- NOTE | 2018-05-20 18:33 | NUR ---
RESTING IN BED COMFORTABLY. NO RESPIRATORY DISTRESS NOTED. NO CHANGE IN LOC. KEPT CLEAN AND DRY. WILL CONTINUE TO MONITOR.
--- NOTE | 2018-05-20 19:15 | NUR ---
ENDORSED TO PSYCHIATRIC SOCIAL WORKER SUPERVISOR RN. PT ON STABLE CONDITION.
--- NOTE | 2018-05-20 19:30 | NUR ---
RECEIVED REPORT FROM BANDAR COREA. PT IS ALERT ORIENTED,MOUTH WORDS/ PTS IS LOOK CALM AT THIS TIME AND SLEEPY. TRACH TO VENT WITH VENT SETTING AC RATE 12 TV 450 FIO2 28% AND PEEP OF 5. BILATERAL LUNGS SOUND RHONCHI. NO COUGHING NOTED AT THIS TIME. SR ON MONITOR. IV NS AT 50 CC/HR RUNNING WELL. IV SITE TO RFA INTACT WELL.CONT ON IV ABT ORDER. ABD SOFT NON DISTENDED. GT IN PLACE WITH VITAL F AT 65 CC/HR AND H20 AT 100 CC Q4HRS. NO RESIDUAL NOTED. GT SITE REDNESS TX IN PROGRESS.PT IS INCONTINENT BOWEL AND BLADDER.GOOD MELONY CARE GIVEN. KEPT CLEAN AND DRY. CALL LIGHT IN REACH.
--- NOTE | 2018-05-20 20:27 | NUR ---
COME TO SEE PT,NO NEW ORDER AT THIS TIME.
[2018-05-20] MEDS: LATANOPROST 0.005% OP 2.5 ML BTL LEFT EYE SCH (21:20)
--- NOTE | 2018-05-20 21:47 | NUR ---
BLOOD SUGAR IS 160 AND 2 UNITS INSULIN GIVEN ORDER . ALL NIGHTS MEDS GIVEN WELL AND TOLERATED WELL.
[2018-05-20] MEDS: GENTAMICIN 120 MG in DEXTROSE 5% 100 ML IV SCH (23:05)
--- NOTE | 2018-05-20 23:10 | NUR ---
GARAMICYN/GENTAMICIN THROUGH IS DRAWN AND MED GIVEN ORDER.
[2018-05-21] VITALS (15 sets, daily range): BP systolic 104–162; BP diastolic 54–99
--- NOTE | 2018-05-21 00:17 | NUR ---
PT AWAKE ABLE TO SUCTION HIM SELF BY ORAL.
[2018-05-21] MEDS: KETOROLAC 30 MG/ML VIAL IVP PRN ×3 (00:32→16:44)
[2018-05-21] MEDS: HYDRAGUARD CREAM TP SCH ×2 (00:32→13:27)
[2018-05-21] MEDS: NACL 0.9% 1,000 ML IV SCH ×2 (00:32→21:16)
--- NOTE | 2018-05-21 01:00 | NUR ---
BENA PEAK DRAWN.
--- NOTE | 2018-05-21 03:00 | NUR ---
PT SLEEP WELL
--- NOTE | 2018-05-21 05:23 | NUR ---
AM CARE GIVEN. BED BATH GIVEN. ORAL CARE DONE BY PT WITH ASSIST. BM X1 LARGE . KEPT CLEAN AND DRY.
[2018-05-21] MEDS: BRIMONIDINE TARTRATE 0.2% OP 5 ML BTL LEFT EYE SCH ×3 (05:24→21:25)
[2018-05-21 05:58] LABS: BASOPHILS % (AUTO) 0.3 % (0.0-2.0); EOSINOPHILS # (AUTO) 0.2 K/uL (0-0.4); EOSINOPHILS % (AUTO) 1.9 % (0.0-4.0); HEMOGLOBIN 7.7 g/dL (12.0-18.0); LYMPHOCYTES # (AUTO) 1.6 K/uL (2.0-11.5); LYMPHOCYTES % (AUTO) 12.9 % (20.5-51.1); MEAN CORPUSCULAR HEMOGLOBIN 26 pg (27-31); MEAN CORPUSCULAR HGB CONC 32 g/dL (33-37); MEAN CORPUSCULAR VOLUME 81.2 fL (80-94); MONOCYTES % (AUTO) 7.9 % (1.7-9.3); NEUTROPHILS # (AUTO) 9.7 K/uL (1.8-7.7); PLATELET COUNT (AUTO) 434 K/uL (140-450); RED BLOOD CELL COUNT(AUTO) 2.96 MIL/uL (4.20-6.10); RED CELL DISTRIBUTION WIDTH 18.3 % (11.6-13.7); WHITE BLOOD COUNT (AUTO) 12.6 K/uL (4.8-10.8)
[2018-05-21 06:23] LABS: ANION GAP 9.9 (8-16); CARBON DIOXIDE 26.3 mmol/L (21-32); CHLORIDE 107 mmol/L (98-107); CREATININE 0.6 mg/dL (0.7-1.3); GLUCOSE 159 mg/dL (74-106); POTASSIUM 3.2 mmol/L (3.5-5.1); SODIUM SERUM 140 mmol/L (136-145); UREA NITROGEN, BLOOD 12 mg/dL (7-18)
[2018-05-21] MEDS: BLOOD GLUCOSE MONITORING 1 DEV DEV FS SCH ×4 (06:35→21:13)
[2018-05-21] MEDS: INSULIN LISPRO SLIDING SCALE 100 UNITS/ML VIAL SUBQ PRN (06:36)
[2018-05-21] MEDS: ALBUTEROL SULFATE/IPRATROPIU 3 ML SOL IH SCH ×3 (06:47→19:04)
[2018-05-21] MEDS ORDERED: KCL 20 MEQ/WATER INJ PREMIX 100 ML IV SCH (07:00)
--- NOTE | 2018-05-21 07:05 | NUR ---
RECEIVED BEDSIDE REPORT FROM ELECTRONIC SECURITY TECHNICIAN RN FOR CONTINUITY OF CARE. PATIENT IS NONVERBAL, ABLE TO FOLLOW SIMPLE COMMANDS AND MAKES NEEDS KNOWN. SKIN IS WARM AND DRY AND INTACT. PATIENT HAS PERIPHERAL IV SITE TO RIGHT FOREARM 20, ASYMPTOMATIC, PATENT. HE HAS TRACH TO VENT, SETTINGS AC RATE 12, TV450, FIO2 28, PEEP 5. BREATHING IS UNLABORED AND EVEN, SR ON MONITOR. COMPLAINS OF 7/10 PAIN. PATIENT HAS A GTUBE IN PLACE TO TUBE FEEDING, VITAL AF, NO RESIDUAL NOTED. ALL SAFETY PRECAUTION IN PLACE, HOB IS 30 DEGREES, CALL LIGHT WITHIN REACH. NO SIGNS OF DISTRESS NOTED. WILL CONTINUE TO MONITOR.
[2018-05-21] MEDS: CLINDAMYCIN PHOS 600MG/D5W PM 50 ML IV SCH ×2 (07:28→15:59)
[2018-05-21 07:38] LABS: MAGNESIUM 1.8 mg/dL (1.8-2.4); PHOSPHORUS 2.9 mg/dL (2.5-4.9)
[2018-05-21] MEDS: PANTOPRAZOLE 40 MG INJ VIAL IVP SCH (08:23)
[2018-05-21] MEDS: metFORMIN 500 MG TAB GT SCH ×2 (08:23→21:22)
[2018-05-21] MEDS: GLIMEPIRIDE 2 MG TAB GT SCH (08:24)
[2018-05-21] MEDS: LACTULOSE 20 GM/30 ML UDC PO SCH (08:24)
[2018-05-21] MEDS: FERROUS SULFATE 300 MG/5 ML UDC GT SCH (08:24)
[2018-05-21] MEDS: LISINOPRIL 20 MG TAB GT SCH (08:24)
[2018-05-21] MEDS: DOCUSATE 100 MG/10 ML UDC PO SCH ×2 (08:24→21:24)
[2018-05-21] MEDS: LACTOBACILLUS RHAMNOSUS GG 1 EACH CAP PEG SCH (08:24)
[2018-05-21] MEDS: ASCORBIC ACID 500 MG TAB PO SCH (08:24)
[2018-05-21] MEDS: FUROSEMIDE 40 MG/5 ML ORAL SOL UDC GT SCH (08:24)
[2018-05-21] MEDS: ASPIRIN 81 MG TAB.CHEW GT SCH (08:25)
[2018-05-21] MEDS: ATENOLOL 25 MG TAB GT SCH (08:25)
[2018-05-21] MEDS: PREGABALIN 50 MG CAP GT SCH ×2 (08:40→21:23)
--- NOTE | 2018-05-21 08:40 | NUR ---
SCHEDULED MEDS ADMINISTERED, GAVE PRN PAIN MEDICATION, PATIENT TOLERATED WELL. WILL CONTINUE TO MONITOR
--- NOTE | 2018-05-21 08:45 | NUR ---
DR. GREENE AND RESIDENT PHYSICIANS IN TO SEE AND ROUND ON PATIENT. UPDATED ON PATIENT'S CONDITION. WILL FOLLOW UP ON ANY ORDERS.
--- NOTE | 2018-05-21 08:47 | NUR ---
RCV'D PT ON MECHANICAL VENTILATION WITH CHARTED SETTINGS. PT IS TRACED WITH PORTEX 6. TRACH IS IN PLACE AND SECURED. VENT IS CONNECTED TO RED OUTLET. AMBU BAG AT BEDSIDE. ALARMS AUDIBLE. NO SOB OR DISTRESS NOTED. CUFF PRESSURE 30 CMH2O. HHN TX GIVEN WITH NO ADVERSE REACTION. CLEAR BREATH SOUNDS. WILL CONTINUE TO MONITOR.
--- NOTE | 2018-05-21 09:00 | NUR ---
TURNED AND REPOSITIONED PATIENT, HE HAD 1 SMALL BM, PATIENT WAS CLEANED AND POSITIONED FOR COMFORT. HOB IS AT 30 DEGREES, SUCTION IN REACH. CALL LIGHT IN REACH. NO SIGNS OF DISTRESS NOTED, WILL CONTINUE TO MONITOR
[2018-05-21] MEDS: LORazepam 1 MG TAB GT PRN ×2 (11:18→17:02)
--- NOTE | 2018-05-21 11:25 | NUR ---
PATIENT WAS RESTLESS AND AGITATED, GIVEN PRN ATIVAN, PATIENT TOLERATED WELL.
--- NOTE | 2018-05-21 11:29 | NUR ---
PATIENT HAD 1 LARGE BM, CLEANED AND REPOSITIONED FOR COMFORT. PATIENT TOLERATED WELL.
--- NOTE | 2018-05-21 12:33 | NUR ---
ORAL CARE PROVIDED, PATIENT TOLERATED WELL. NO SIGNS OF DISTRESS NOTED.
--- NOTE | 2018-05-21 15:06 | NUR ---
PATIENT HAD 1 LARGE LOOSE BM, HE WAS CLEANED, GOWN AND LINENS CHANGED. PATIENT TOLERATED WELL
--- NOTE | 2018-05-21 15:27 | NUR ---
ORAL CARE PROVIDED, PATIENT TOLERATED WELL. NO SIGNS OF DISTRESS NOTED. SAFETY PRECAUTIONS IN PLACE, CALL LIGHT WITHIN REACH. WILL CONTINUE TO MONITOR
--- NOTE | 2018-05-21 15:58 | NUR ---
PLACE RECTAL BAG AND CONDOM CATHETER ON PATIENT, PATIENT TOLERATED WELL. WILL CONTINUE TO MONITOR
--- NOTE | 2018-05-21 17:04 | NUR ---
PATIENT WAS RESTLESS AND AGITATED AFTER GIVEN TORADOL, GAVE PRN ATIVAN 1 MG. PATIENT TOLERATED WELL.
--- NOTE | 2018-05-21 18:15 | NUR ---
PATIENT TRANSFERRED TO ROOM 122B VIA 50% AMBU BAG, PLACED BACK ON CURRENT VENTILATOR SETTINGS AC-12, VT-450, FIO2-28% PEEP +5, [id number], RR-21BPM, HR-58, SAO2-100%
--- NOTE | 2018-05-21 18:15 | NUR ---
TRANSFERRED PATIENT TO TELEMETRY UNIT, NO SIGNS OF DISTRESS NOTED, PATIENT IN STABLE CONDITION. ENDORSED BEDSIDE REPORT TO MST RN FOR CONTINUITY OF CARE, ALL SAFETY PRECAUTIONS IN PLACE.
--- NOTE | 2018-05-21 18:25 | NUR ---
RECEIVED REPORT FROM ICU NURSE AT THE BEDSIDE. PT 82Y/O, M, TAMAZIGHT SPEAKING ONLY . IS TRACH TO VENT DEPENDENT. HAS VENT SETTING OF AC RATE 12, TIDAL VOLUME 450, FIO2 28, PEEP 5. PT HAS THE RECTAL TUBE, CONDOM FC, G-TUBE RUNNING AT 65 ML/HR, WITH 100 FLUSH EVERY 6HRS. 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 SKIN IS INTACT. IV ACCESS AT RT FA 20G, IVF NS INFUSING @Z 50 ML/HR. PER ICU NURSE SAMMY, PT HAS 4 LARGE BM IN INSULIN, GIVEN TRAMADOL AND ATIVAN IN ICU. VS STABLE. BP 135/71, T 97.4, HR 71, PAIN 0, FLACC 0, O2 SAT 100%, RR 12/MIN. PT ADMITED FROM [facility] WITH DX OF PNA, RECTAL IMPACTION. HAS HX OF DMII, COPD, LARYNGEAL CANCER. PT ABLE TO MAKE HER MINIMAL NEEDS KNOWN. WILL CONTINUE TO MONITOR PT.
--- NOTE | 2018-05-21 19:35 | NUR ---
ENDORSED PT TO PM NURSE AT THE BEDSIDE. PT IN STABLE CONDITION.
--- NOTE | 2018-05-21 19:36 | NUR ---
RECEIVED PT FROM SAI RN PT AAOX3 TRACH TO VENT DEPENDENT FIO2 28% TV 450 RR 12 PEEP 5 IV ON RT F INFUSING WELL G TUBE FEEDING WELL TOLERATED REDNESS AROUND BED BOUND SUCTIONED NECESSARY MAYO CATH DRAINING WELL YELLOW URINE AND RECTAL TUBE EMPTY . ON TELEMETRY SR INITIAL ASESSSMENT DONE
[2018-05-21] MEDS: LATANOPROST 0.005% OP 2.5 ML BTL LEFT EYE SCH (21:27)
--- NOTE | 2018-05-21 21:30 | NUR ---
BLOOD SUGAR TEST 117 NOT COVERAGE
[2018-05-22] VITALS: BP 141/78
[2018-05-22] MEDS ORDERED: GENTAMICIN 160 MG in NACL 0.9% 100 ML IV SCH ×2
--- NOTE | 2018-05-22 | NUR ---
ORAL CARE GIVEN WITH VAP KIT REPOSITIONED SUCTIONED NECESSARY ON TELEMETRY SR
[2018-05-22] MEDS: CLINDAMYCIN PHOS 600MG/D5W PM 50 ML IV SCH ×4 (00:30→23:41)
[2018-05-22] MEDS: GENTAMICIN 200 MG in NACL 0.9% 100 ML IV SCH ×2 (00:30→23:41)
[2018-05-22] MEDS: KETOROLAC 30 MG/ML VIAL IVP PRN ×3 (00:42→20:11)
[2018-05-22] MEDS: HYDRAGUARD CREAM TP SCH ×2 (01:14→13:00)
--- NOTE | 2018-05-22 01:15 | NUR ---
STABLE NO DISTRESS NOTED GOOD CHEST RISE
--- NOTE | 2018-05-22 03:00 | NUR ---
SPONGE BATH GIVEN LINEN CHANGED ORAL CARE GIVEN , PT IS SUCTIONED ASNECESARY TRACH TO CONNOR SETTING REMAINS THE SAME SETTING
--- NOTE | 2018-05-22 03:15 | NUR ---
NO EVIDENCE OF RESPIRATORY DISTRESS NOTED GOOD CHEST RISE
[2018-05-22 04:00] VITALS: BP 137/74
[2018-05-22] MEDS: BRIMONIDINE TARTRATE 0.2% OP 5 ML BTL LEFT EYE SCH ×3 (05:00→20:18)
--- NOTE | 2018-05-22 05:00 | NUR ---
PT REPOSITIONED AND SUCTIONED NECESSARY NOT DISTRESS NOTED TRACH TO CONNOR SETTING REMAIN SAME SETTING
[2018-05-22] MEDS: BLOOD GLUCOSE MONITORING 1 DEV DEV FS SCH ×4 (06:09→20:10)
[2018-05-22] MEDS: INSULIN LISPRO SLIDING SCALE 100 UNITS/ML VIAL SUBQ PRN ×3 (06:11→20:06)
--- NOTE | 2018-05-22 06:16 | NUR ---
BLOOD SUGAR TEST 155 COVERAGE WITH 2UNITS HUMALOG ON RT ARM SUBQ
--- NOTE | 2018-05-22 07:15 | NUR ---
RECEIVED PT FROM CIRCUS HAND NURSEEMILIANO, PT IS ASLEEP LYING ON THE BED, FALL PRECAUTION INITIATED, BED IN LOW POSITION, SIDE RAILS ARE UP AND CALL LIGHT WITHIN REACH. PT IS ON A TRACH TO VENT AT A RATE OF 12, FIO2 AT 28% AND TIDAL VOLUME AT 25. RESPIRATIONS EVEN. PT HAS AN IV LINE ON THE RT FA G. 22 WITH NS RUNNING AT 50ML/HR. PT IS ON CONTINUOUS FEEDING OF VITAL AF 1.2 OBDULIA AT A RATE OF 65ML/HR WITH WATER FLUSHING OF A 100 ML EVERY 4H, INTACT AND PATENT VIA G-TUBE. PT SHOWS NO SIGN OF DISTRESS AND WILL CONTINUE TO MONITOR.
[2018-05-22] MEDS: ALBUTEROL SULFATE/IPRATROPIU 3 ML SOL IH SCH ×3 (07:32→18:48)
--- NOTE | 2018-05-22 07:35 | NUR ---
PT IS AWAKE AND RT IS ON THE BEDSIDE GIVING BREATHING TREATMENT TO THE PT WELL SUCTIONING THE PT CO. PT IS TOLERATING THE TREATMENT. VITAL SIGNS TAKEN AND IS STABLE. NO SIGN OF DISTRESS NOTED AND WILL MONITOR PT.
[2018-05-22 08:00] VITALS: BP 131/64
[2018-05-22] MEDS: PANTOPRAZOLE 40 MG INJ VIAL IVP SCH (08:38)
[2018-05-22] MEDS: LACTULOSE 20 GM/30 ML UDC PO SCH (08:38)
[2018-05-22] MEDS: FERROUS SULFATE 300 MG/5 ML UDC GT SCH (08:39)
[2018-05-22] MEDS: DOCUSATE 100 MG/10 ML UDC PO SCH ×2 (08:39→20:17)
[2018-05-22] MEDS: metFORMIN 500 MG TAB GT SCH ×2 (08:44→20:16)
[2018-05-22] MEDS: FUROSEMIDE 40 MG/5 ML ORAL SOL UDC GT SCH (08:44)
[2018-05-22] MEDS: GLIMEPIRIDE 2 MG TAB GT SCH (08:45)
[2018-05-22] MEDS: LACTOBACILLUS RHAMNOSUS GG 1 EACH CAP PEG SCH (08:45)
[2018-05-22] MEDS: ASPIRIN 81 MG TAB.CHEW GT SCH (08:45)
[2018-05-22] MEDS: ASCORBIC ACID 500 MG TAB PO SCH (08:46)
[2018-05-22] MEDS: LISINOPRIL 20 MG TAB GT SCH (08:48)
[2018-05-22] MEDS: ATENOLOL 25 MG TAB GT SCH (08:50)
[2018-05-22 09:36] LABS: BASOPHILS % (AUTO) 0.3 % (0.0-2.0); EOSINOPHILS # (AUTO) 0.3 K/uL (0-0.4); EOSINOPHILS % (AUTO) 2.5 % (0.0-4.0); HEMATOCRIT 22.5 % (36-52); HEMOGLOBIN 7.2 g/dL (12.0-18.0); LYMPHOCYTES # (AUTO) 2.4 K/uL (2.0-11.5); MEAN CORPUSCULAR HEMOGLOBIN 26 pg (27-31); MEAN CORPUSCULAR HGB CONC 32 g/dL (33-37); MEAN CORPUSCULAR VOLUME 81.6 fL (80-94); MONOCYTES # (AUTO) 0.9 K/uL (0.8-1.0); MONOCYTES % (AUTO) 6.9 % (1.7-9.3); NEUTROPHILS # (AUTO) 8.9 K/uL (1.8-7.7); NEUTROPHILS % (AUTO) 71.3 % (42.2-75.2); PLATELET COUNT (AUTO) 464 K/uL (140-450); RED BLOOD CELL COUNT(AUTO) 2.76 MIL/uL (4.20-6.10); RED CELL DISTRIBUTION WIDTH 18.4 % (11.6-13.7); WHITE BLOOD COUNT (AUTO) 12.5 K/uL (4.8-10.8)
[2018-05-22 09:55] LABS: ANION GAP 10.3 (8-16); CARBON DIOXIDE 27.2 mmol/L (21-32); CHLORIDE 107 mmol/L (98-107); CREATININE 0.6 mg/dL (0.7-1.3); GLUCOSE 163 mg/dL (74-106); POTASSIUM 3.5 mmol/L (3.5-5.1); SODIUM SERUM 141 mmol/L (136-145); UREA NITROGEN, BLOOD 14 mg/dL (7-18)
[2018-05-22 09:59] LABS: MAGNESIUM 1.5 mg/dL (1.8-2.4); PHOSPHORUS 2.9 mg/dL (2.5-4.9)
[2018-05-22 12:00] VITALS: BP 143/68
[2018-05-22] MEDS ORDERED: MAG SULF 2000 MG/WATER PREMIX 50 ML IV SCH (12:00)
--- NOTE | 2018-05-22 12:00 | NUR ---
CONTINUOUS FEEDING OF VISTAL AF 1.2 OBDULIA VIA G-TUBE WAS STARTED TO THE PT AT A RATE OF 65 ML/HR WITH 100ML WATER FLUSHING EVERY 4H, NO RESIDUAL NOTED. PT IS TOLERATING THE FEEDING AND NO SIGN OF DISTRESS NOTED.
--- NOTE | 2018-05-22 12:12 | NUR ---
05/22/18 RD FOLLOW UP COMPLETED 1. CONTINUE VITAL @65 ML/HR -THIS WILL PROVIDE 1560 ML, 1872 KCAL, AND 117 GM OF PROTEIN MEETING 100% OF ESTIMATED NEEDS. 2. FREE WATER FLUSH [address] TO FOLLOW-UP 3-5 DAYS, MODERATE RISK. DIDIER ALMODOVAR, RD
--- NOTE | 2018-05-22 13:50 | NUR ---
PT IS AWAKE AND A RECTAL HILLIARD BAG WAS INSERTED TO THE PT WITH THE ASSISTANCE OF CHARGE NURSE, AND THE HELP OF LIANE, LIZZETTE AND HELEN. ELYSIA, PT HAS NO SIGN OF DISTRESS. PT WAS POSITIONED COMFORTABLE ON THE BED. WILL MONITOR PT.
--- NOTE | 2018-05-22 15:37 | NUR ---
PT SUCTIONED OBTAINED SMALL AMOUNT OF THICK WHITE SECRETIONS, AIRWAY IS PATENT AND TRACH IS SECURE. FIO2 TITRATED TO 24%. PT NOT SOB AND NOT IN RESPIRATORY DISTRESS AT THIS TIME. WILL CONTINUE TO MONITOR.
[2018-05-22 16:00] VITALS: BP 136/61
--- NOTE | 2018-05-22 16:11 | NUR ---
DR. KELLER WAS INFORMED THAT PT I STILL IN PAIN AND HAD WRITTEN ON THE PAPER THAT HE WANTS NORCO FOR THE PAIN AND DR. KELLER SAID TO GIVE NORCO TO THE PT. WILL CARRY OUT ORDER PER PARAMETER.
[2018-05-22] MEDS: HYDROcodone/APAP 5/325 MG 1 TAB TAB PO PRN (16:15)
--- NOTE | 2018-05-22 16:31 | NUR ---
PT IS AWAKE AND MAKING A GESTURE THAT HE WANTS NORCO, VITAL SIGNS TAKEN AND IS STABLE. MEDICATIONS GIVEN AND BLOOD GLUCOSE CHECK DONE AND RESULT IS 187, INSULIN COVERAGE NEEDED. NO SIGN OF DISTRESS NOTED TO THE PT.
[2018-05-22] MEDS: NACL 0.9% 1,000 ML IV SCH (16:40)
--- NOTE | 2018-05-22 16:50 | NUR ---
PT WAS REPOSITIONED AND CLEANED UP, WITH THE HELP OF LIANE, ORESTES AND LIZZETTE AND INSULIN WAS GIVEN TO THE PT WELL. PT HAS NO SIGN OF DISTRESS. WILL CONTINUE TO MONITOR.
--- NOTE | 2018-05-22 17:33 | NUR ---
PT REMAINS ON DOCUMENTED VENT SETTINGS. PT SUCTIONED OBTAINED SMALL AMOUNT OF THICK WHITE SECRETIONS, AIRWAY IS PATENT AND TRACH IS SECURE. VENT ALARMS REMAIN ON AND FUNCTIONING.
--- NOTE | 2018-05-22 18:42 | NUR ---
PT IS AWAKE AND LYING ON THE BED, VIEWING THE TV, RESPIRATIONS EVEN, WILL MONITOR.
--- NOTE | 2018-05-22 18:56 | NUR ---
Received pt stable on vent support at documented settings, hhn tx given, tolerated well, no resp distress or SOB noted at this time, Portex 6 trach secured/patent/midline, alarms set and audible, ambu bag at bedside, vent plugged into red outlet, pulse ox on, will cont to monitor.
--- NOTE | 2018-05-22 19:34 | NUR ---
ENDORSED PT TO HIGH SPEED OPERATOR NURSE, EMILIANO FOR CONTINUITY OF CARE, PT IS AWAKE AND IS STABLE AT THIS TIME.
--- NOTE | 2018-05-22 19:35 | NUR ---
RECEIVED PT FROM CARD RN PT BENGALI TRACH TO VENT DEPENDENT FIO2 24% V 450 RR12 PEEP 5 ON TELEMETRY SR, IV ON RT FA INFUSING WELL G TUBE FEEDING WELL TOLERATED RECTAL BG NOT STOOL YET PT REPOSITIONED AND SUCTIONED NECESSARY INITIAL ASSESSMENT DONE
[2018-05-22 20:00] VITALS: BP 141/79
[2018-05-22] MEDS: LATANOPROST 0.005% OP 2.5 ML BTL LEFT EYE SCH (20:18)
--- NOTE | 2018-05-22 21:30 | NUR ---
BLOOD SUGAR TEST 170 COVERAGE WITH HUMALOG 2 UNITS SUBQ FOLLOW PROTOCOL
--- NOTE | 2018-05-22 23:08 | NUR ---
PT PULL OUT IV AND A NEW IV IS INSERTED ON LEFT HAND GUGE # 24
[2018-05-23] VITALS: BP 137/66
--- NOTE | 2018-05-23 00:40 | NUR ---
HOB 30 DEGREE ORAL CARE GIVEN WITH VAP KIT TRACH TO VENT SETTING REMAIN STABLE ON TELEMETRY SR , IV ON LEFT HAND INFUSING WELL G TUBE FEEDING WELL TOLERATED
[2018-05-23] MEDS: HYDRAGUARD CREAM TP SCH ×2 (01:00→13:00)
--- NOTE | 2018-05-23 02:31 | NUR ---
PT SLEEPING DENIED ANY PAIN OR DISTRESS ON TELEMETRY SR, TRACH TO VENT REMAINSAMESETTIG O CLOSE CONTINUININGMONNITORING REPOSITIONED Q2H
[2018-05-23 04:00] VITALS: BP 150/82
--- NOTE | 2018-05-23 04:00 | NUR ---
HOB 30 DEGREE ORAL CARE GIVEN WITH VAP KIT SUCTIONED NECESSARY TRACH TO VENT REMAIN SAME SETTING REPOSITIONED ON TELEMETRY SR
[2018-05-23] MEDS: KETOROLAC 30 MG/ML VIAL IVP PRN (04:18)
[2018-05-23] MEDS: BRIMONIDINE TARTRATE 0.2% OP 5 ML BTL LEFT EYE SCH ×3 (05:26→20:59)
[2018-05-23] MEDS: BLOOD GLUCOSE MONITORING 1 DEV DEV FS SCH ×4 (05:41→21:10)
[2018-05-23] MEDS: INSULIN LISPRO SLIDING SCALE 100 UNITS/ML VIAL SUBQ PRN ×3 (05:43→16:10)
[2018-05-23] MEDS: ALBUTEROL SULFATE/IPRATROPIU 3 ML SOL IH SCH ×4 (06:26→19:00)
--- NOTE | 2018-05-23 06:26 | NUR ---
BLOOD SUGAR TEST 190 COVERAGE WITH2 UNITS SUBQ HUMALOG ONLEFT ARM
--- NOTE | 2018-05-23 06:27 | NUR ---
PT SLEEPING , IV ON LEFT HAND INFUSING WELL ON TELEMETRY SR , TRACH TO VENT REMAIN SAME SETTING G TUBE FEEDING WELL TOLERATED PT REPOSITIONED
[2018-05-23 07:15] LABS: BASOPHILS % (AUTO) 0.4 % (0.0-2.0); EOSINOPHILS # (AUTO) 0.2 K/uL (0-0.4); EOSINOPHILS % (AUTO) 1.5 % (0.0-4.0); HEMATOCRIT 25.2 % (36-52); HEMOGLOBIN 8.1 g/dL (12.0-18.0); LYMPHOCYTES # (AUTO) 1.2 K/uL (2.0-11.5); LYMPHOCYTES % (AUTO) 9.6 % (20.5-51.1); MEAN CORPUSCULAR HEMOGLOBIN 26 pg (27-31); MEAN CORPUSCULAR HGB CONC 32 g/dL (33-37); MEAN CORPUSCULAR VOLUME 81.3 fL (80-94); MONOCYTES # (AUTO) 0.9 K/uL (0.8-1.0); MONOCYTES % (AUTO) 6.9 % (1.7-9.3); NEUTROPHILS # (AUTO) 10.5 K/uL (1.8-7.7); NEUTROPHILS % (AUTO) 81.6 % (42.2-75.2); PLATELET COUNT (AUTO) 475 K/uL (140-450); RED CELL DISTRIBUTION WIDTH 18.6 % (11.6-13.7); WHITE BLOOD COUNT (AUTO) 12.8 K/uL (4.8-10.8)
--- NOTE | 2018-05-23 07:25 | NUR ---
RECEIVED REPORT FROM DIP FILLER RN. PT RESTING IN BED COMFORTABLY. A/O X3. ABLE TO MAKE NEEDS KNOWN. LUNGS SOUND DIMINISHED. TRACH TO VENT AC 12 TV 450 FIO2 24 PEEP 5. SATURATING 100%. ABDOMEN FIRM ROUND AND TENDERNESS PRESENT. HYPOACTIVE BOWEL SOUND. G-TUBE IN LUQ. RESIDUAL 0. REDNESS ON BUA NOTED. PERIPHERAL LINE NOTED ON LEFT HAND 24G. NS RUNNING AT 50 ML/HR. RECTAL TUBE IN PLACE. COLLECTING GREENISH BLACK STOOL IN COLLECTING BAG. S/P SURGICAL SCAR ON L LEG. EDEMA PRESENT ON LLE. HOB ELEVATED. BED IN LOW POSITION LOCKED. WILL CONTINUE TO MONITOR.
--- NOTE | 2018-05-23 07:34 | NUR ---
RECEIVED ON A [employer] R860 VENTILATOR TOLERATING WELL WITHOUT INCIDENT TO A PORTEX DFEN #6 AIRWAY SECURED WITH A JANY TRACH TIE CUFF PRESSURE CHECKED NOTED AMBU BAG AT BEDSIDE LOC AWAKE AND ALERT SLIGHT IRRITABLE BREATH SOUNDS DIFFUSED RHONCHI BILATERAL WITH GOOD CHEST RISE DEEP TRACHEAL SUCTION FOR SMALL THIN YELLOW SECRETIONS AIRWAY PATENT
[2018-05-23 08:00] VITALS: BP_SYST 155; BP_SYST 157; BP_DIAS 80; BP_DIAS 91
[2018-05-23 08:12] LABS: ANION GAP 8.5 (8-16); CARBON DIOXIDE 26.8 mmol/L (21-32); CHLORIDE 105 mmol/L (98-107); CREATININE 0.6 mg/dL (0.7-1.3); GLUCOSE 201 mg/dL (74-106); POTASSIUM 3.3 mmol/L (3.5-5.1); SODIUM SERUM 137 mmol/L (136-145); UREA NITROGEN, BLOOD 14 mg/dL (7-18)
[2018-05-23] MEDS: CLINDAMYCIN PHOS 600MG/D5W PM 50 ML IV SCH ×2 (08:18→16:00)
[2018-05-23] MEDS: GLIMEPIRIDE 2 MG TAB GT SCH (08:19)
[2018-05-23] MEDS: ASPIRIN 81 MG TAB.CHEW GT SCH (08:19)
[2018-05-23] MEDS: FUROSEMIDE 40 MG/5 ML ORAL SOL UDC GT SCH (08:20)
[2018-05-23] MEDS: metFORMIN 500 MG TAB GT SCH ×2 (08:20→20:59)
[2018-05-23] MEDS: FERROUS SULFATE 300 MG/5 ML UDC GT SCH (08:20)
[2018-05-23] MEDS: PANTOPRAZOLE 40 MG INJ VIAL IVP SCH (08:21)
[2018-05-23] MEDS: ATENOLOL 25 MG TAB GT SCH (08:21)
[2018-05-23] MEDS: LISINOPRIL 20 MG TAB GT SCH (08:21)
[2018-05-23] MEDS: ASCORBIC ACID 500 MG TAB PO SCH (08:22)
[2018-05-23] MEDS: LACTOBACILLUS RHAMNOSUS GG 1 EACH CAP PEG SCH (08:22)
[2018-05-23] MEDS: DOCUSATE 100 MG/10 ML UDC PO SCH ×2 (08:22→20:59)
[2018-05-23] MEDS: LACTULOSE 20 GM/30 ML UDC PO SCH (08:22)
[2018-05-23] MEDS: HYDROcodone/APAP 5/325 MG 1 TAB TAB PO PRN ×2 (08:23→17:38)
[2018-05-23 08:30] LABS: MAGNESIUM 1.7 mg/dL (1.8-2.4); PHOSPHORUS 3.3 mg/dL (2.5-4.9)
[2018-05-23] MEDS ORDERED: POTASSIUM PHOSPHATE 15 MM in NACL 0.9% 250 ML IV SCH (09:05)
[2018-05-23] MEDS ORDERED: MAGNESIUM OXIDE 400 MG TAB GT SCH (09:05)
--- NOTE | 2018-05-23 09:44 | NUR ---
SUCTIONED PT. KEPT HOB ELEVATED. SATURATING 98%. PT STILL WANTS TO BE SUCTIONED. RT MADE AWARE. SAID HE WILL TAKE CARE OF IT.
--- NOTE | 2018-05-23 09:54 | NUR ---
NO EVIDENCE OF RESPIRATORY DISTRESS NOTED GOOD CHEST RISE NO DEEP SUCTIONING REQUIRES AT THIS TIME
--- NOTE | 2018-05-23 11:20 | NUR ---
NO DISTRESS NOTED GOOD CHEST RISE
[2018-05-23 12:00] VITALS: BP 155/91
[2018-05-23] MEDS: NACL 0.9% 1,000 ML IV SCH ×2 (12:15→17:38)
--- NOTE | 2018-05-23 14:00 | NUR ---
ANXIETY AUDIO VISUAL TECH TO CONSULT BANDAR/RN DEEP TRACHEAL SUCTION FOR MODERATE THIN YELLOW SECRETIONS AIRWAY PATENT
[2018-05-23 16:00] VITALS: BP 154/87
--- NOTE | 2018-05-23 17:17 | NUR ---
GOOD CHEST RISE DEEP TRACHEAL SUCTION FOR SMALL THIN YELLOW SECRETIONS AIRWAY PATENT
[2018-05-23] MEDS ORDERED: MAGNESIUM OXIDE 400 MG TAB GT ONE (17:55)
--- NOTE | 2018-05-23 19:27 | NUR ---
ENDORSED TO RIPSAW GRADER RN FOR CONTINUITY OF CARE. PT ON STABLE CONDITION.
--- NOTE | 2018-05-23 19:28 | NUR ---
RECEIVED REPORT FROM DAY SHIFT NURSE. PT IS TRACH TO VENT FI02 24 VT 450 PEEP 5. NO RESP DISTRESS NOTED. ABLE TO MAKE NEEDS KNOWN, CAN MOUTH WORDS. DENIES PAIN. PT HAS G-TUBE IN PLACE, TOLERATING FEEDING WELL. RECTAL TUBE IN PLACE, DARK GREEN STOOL IN THE BAG. IV TO LET HAND #24G, NS AT 50 ML/HR, INFUSING WELL. ASPIRATION AND FALL PRECAUTION IN PLACE. CALL LIGHT WITHIN REACH.
[2018-05-23 20:00] VITALS: BP 152/86
--- NOTE | 2018-05-23 21:00 | NUR ---
BLOOD SUGAR CHECKED 145. NO INSULIN COVERAGE. GT RESIDUAL CHECKED 0 ML. DUE MEDS GIVEN. PT TOLERATED WELL. ASPIRATION AND SAFETY PRECAUTION IN PLACE.
[2018-05-23] MEDS: LATANOPROST 0.005% OP 2.5 ML BTL LEFT EYE SCH (21:01)
--- NOTE | 2018-05-23 22:00 | NUR ---
PT WAS CLEANED AND CHANGED BY CONSUMER AFFAIRS DIRECTOR. NO C/O PAIN. REPOSITIONED PT Q2HRS. PT KEPT DRY AND COMFORTABLE. NEEDS MET AT THIS TIME. CALL LIGHT WITHIN REACH.
[2018-05-23] MEDS: GENTAMICIN 200 MG in NACL 0.9% 100 ML IV SCH (23:18)
[2018-05-24] VITALS: BP 122/69
[2018-05-24] MEDS: HYDROcodone/APAP 5/325 MG 1 TAB TAB PO PRN ×4 (00:13→23:06)
[2018-05-24] MEDS: CLINDAMYCIN PHOS 600MG/D5W PM 50 ML IV SCH ×4 (00:13→23:41)
[2018-05-24] MEDS: HYDRAGUARD CREAM TP SCH ×2 (00:19→13:27)
--- NOTE | 2018-05-24 00:56 | NUR ---
PT SLEEPING. NO S/S O PAIN. NO S/S OF RESP DISTRESS NOTED. TOLERATING FEEDING WELL. HEAD OF BED ELEVATED.
--- NOTE | 2018-05-24 03:05 | NUR ---
PT AWAKE.NO C/O PAIN. NO RESP DISTRESS NOTED. SUCTIONED PT. ORAL CARE GIVEN.
[2018-05-24 04:00] VITALS: BP 143/80
--- NOTE | 2018-05-24 04:15 | NUR ---
STARTED NEW BAG OF FEEDING VITAL AF AT 65 ML/HR, H2O FLUSH 100 ML Q4HRS. ASPIRATION PRECAUTION IN PLACE.
[2018-05-24] MEDS: BRIMONIDINE TARTRATE 0.2% OP 5 ML BTL LEFT EYE SCH ×3 (05:23→21:02)
[2018-05-24] MEDS: INSULIN LISPRO SLIDING SCALE 100 UNITS/ML VIAL SUBQ PRN ×4 (06:38→21:11)
[2018-05-24] MEDS: BLOOD GLUCOSE MONITORING 1 DEV DEV FS SCH ×4 (06:42→21:12)
--- NOTE | 2018-05-24 06:43 | NUR ---
BLOOD SUGAR CHECKED 238. 4 UNITS OF HUMALOG GIVEN SUBQ.
--- NOTE | 2018-05-24 07:10 | NUR ---
ENDORSED PT TO DAY SHIFT NURSE. PT IN STABLE CONDITION.
--- NOTE | 2018-05-24 07:11 | NUR ---
RECEIVED REPORT FROM HAND PACKAGER NURSE YANI AT BEDSIDE FOR CONTINUITY OF CARE. PT IS AAOX3 BUT APHASIC. INTRODUCED SELF AND UPDATED BOARD. PT TRACH TO VENT O2 SAT 100%. LUNG SOUNDS CLEAR. NO SIGNS OF DISTRESS. PT WAS MOUTHING THAT HE WANTED NORCO. WILL GIVE NORCO. GTUBE IN PLACE WITH VITAL AF AT 65ML/HR. RECTAL TUBE IN PLACE. REDNESS ON GTUEB SITE. SKIN TEAR ON R LOWER LEG. HOB ELEVATED 30 DEGREES. CALL LIGHT WITHIN REACH. BED IN LOW POSITION, WHEELS LOCKED. WILL CONTINUE TO MONITOR.
--- NOTE | 2018-05-24 07:30 | NUR ---
REPORTED TO DR. GREENE AND DR. MCNEILL PT HAD EVENT OF V-FIB ON TELE MONITOR. PT'S BP ALSO 170/110. RECEIVED ORDER FOR EKG.
[2018-05-24 07:32] LABS: BASOPHILS % (AUTO) 0.3 % (0.0-2.0); EOSINOPHILS # (AUTO) 0.1 K/uL (0-0.4); EOSINOPHILS % (AUTO) 0.8 % (0.0-4.0); HEMATOCRIT 29.8 % (36-52); HEMOGLOBIN 9.5 g/dL (12.0-18.0); LYMPHOCYTES # (AUTO) 0.8 K/uL (2.0-11.5); LYMPHOCYTES % (AUTO) 7.2 % (20.5-51.1); MEAN CORPUSCULAR HEMOGLOBIN 26 pg (27-31); MEAN CORPUSCULAR HGB CONC 32 g/dL (33-37); MONOCYTES # (AUTO) 0.9 K/uL (0.8-1.0); MONOCYTES % (AUTO) 8.3 % (1.7-9.3); NEUTROPHILS # (AUTO) 9.5 K/uL (1.8-7.7); NEUTROPHILS % (AUTO) 83.4 % (42.2-75.2); PLATELET COUNT (AUTO) 515 K/uL (140-450); RED BLOOD CELL COUNT(AUTO) 3.63 MIL/uL (4.20-6.10); RED CELL DISTRIBUTION WIDTH 19.1 % (11.6-13.7); WHITE BLOOD COUNT (AUTO) 11.4 K/uL (4.8-10.8)
[2018-05-24] MEDS: ALBUTEROL SULFATE/IPRATROPIU 3 ML SOL IH SCH ×3 (07:33→18:45)
[2018-05-24 08:00] VITALS: BP 170/110
[2018-05-24 08:08] LABS: MAGNESIUM 1.7 mg/dL (1.8-2.4); PHOSPHORUS 2.8 mg/dL (2.5-4.9)
[2018-05-24 08:12] LABS: ANION GAP 8.7 (8-16); CARBON DIOXIDE 28.6 mmol/L (21-32); CHLORIDE 103 mmol/L (98-107); CREATININE 0.6 mg/dL (0.7-1.3); GLUCOSE 215 mg/dL (74-106); POTASSIUM 3.3 mmol/L (3.5-5.1); SODIUM SERUM 137 mmol/L (136-145); UREA NITROGEN, BLOOD 11 mg/dL (7-18)
[2018-05-24] MEDS ORDERED: POTASSIUM PHOSPHATE 15 MM in NACL 0.9% 250 ML IV ONE (09:05)
[2018-05-24] MEDS: LACTULOSE 20 GM/30 ML UDC PO SCH (09:05)
[2018-05-24] MEDS ORDERED: MAGNESIUM OXIDE 400 MG TAB PO SCH (09:05)
[2018-05-24] MEDS: metFORMIN 500 MG TAB GT SCH ×2 (09:06→21:01)
[2018-05-24] MEDS: FERROUS SULFATE 300 MG/5 ML UDC GT SCH (09:06)
[2018-05-24] MEDS: GLIMEPIRIDE 2 MG TAB GT SCH (09:06)
[2018-05-24] MEDS: DOCUSATE 100 MG/10 ML UDC PO SCH ×2 (09:06→21:00)
[2018-05-24] MEDS: LACTOBACILLUS RHAMNOSUS GG 1 EACH CAP PEG SCH (09:07)
[2018-05-24] MEDS: LISINOPRIL 20 MG TAB GT SCH (09:07)
[2018-05-24] MEDS: FUROSEMIDE 40 MG/5 ML ORAL SOL UDC GT SCH (09:08)
[2018-05-24] MEDS: PANTOPRAZOLE 40 MG INJ VIAL IVP SCH (09:08)
[2018-05-24] MEDS: ASCORBIC ACID 500 MG TAB PO SCH (09:08)
[2018-05-24] MEDS: ATENOLOL 25 MG TAB GT SCH (09:08)
[2018-05-24] MEDS: ASPIRIN 81 MG TAB.CHEW GT SCH (09:08)
[2018-05-24 12:00] VITALS: BP 147/85
--- NOTE | 2018-05-24 13:30 | NUR ---
ADMINISTERED SCHEDULED MEDS. HYDRAGUARD APPLIED TO BLE AND G-TUBE SITE. CHECKED GTUBE RESIDUAL 0ML NOTED. NO SIGNS OF DISTRESS. WILL CONTINUE TO MONITOR.
--- NOTE | 2018-05-24 14:06 | NUR ---
PT WAS COMPLAINING OF PAIN AND ASKING FOR NORCO. ADMINISTERED NORCO FOR PAIN. PT WAS STILL ASKING FOR NORCO AGAIN. REASSURED PT THAT NORCO WAS ALREADY GIVE VIA G-TUBE.
--- NOTE | 2018-05-24 15:13 | NUR ---
PT WAS BANGING HAND ON SIDE RAILS. WENT TO CHECK ON PT. PT WAS MOUTHING NORCO. GAVE PAPER AND PEN. PT WROTE "NORCO." I TOLD PT THAT NORCO WAS ALREADY GIVEN.
--- NOTE | 2018-05-24 15:23 | NUR ---
PT TACHYPNEIC AT THIS TIME. PT ALSO BANGING HANDS ON BED RAILINGS. PT WRITES THAT HE WANTS NORCO, MEDS ALREADY GIVEN BY NURSE GILLESPIE. WILL CONTINUE TO MONITOR.
[2018-05-24 16:00] VITALS: BP 151/93
--- NOTE | 2018-05-24 17:26 | NUR ---
PT REMAINS ON DOCUMENTED VENT SETTINGS. TRACH IS SECURE WITH A PATENT AIRWAY. VENT ALARMS REMAIN ON AND FUNCTIONING. PT NOT IN ANY DISTRESS AT THIS TIME.
--- NOTE | 2018-05-24 19:25 | NUR ---
ENDORSED PT TO MERCURY WASHER NURSE YANI AT BEDSIDE FOR CONTINUITY OF CARE. PT IN STABLE CONDITION.
--- NOTE | 2018-05-24 19:26 | NUR ---
RECEIVED REPORT FROM DAY SHIFT NURSE. PT IS TRACH TO VENT O2 SAT 99%. NO RESP DISTRESS NOTED. NO C/O PAIN. ABLE TO MAKE NEEDS KNOWN. PT HAS G-TUBE IN PLACE, TOLERATING FEEDING WELL. RECTAL TUBE IN PLACE DRAINING DARK GREEN STOOL IN THE BAG. IV TO LET HAND #24G, NS AT 50 ML/HR, INFUSING WELL. PT HAS SKIN TEAR ON RIGHT LOWER LEG. ASPIRATION AND FALL PRECAUTION IN PLACE. CALL LIGHT WITHIN REACH.
[2018-05-24 20:00] VITALS: BP 147/90
[2018-05-24] MEDS: LATANOPROST 0.005% OP 2.5 ML BTL LEFT EYE SCH (21:03)
--- NOTE | 2018-05-24 21:15 | NUR ---
PT PULLED OUT HIS IV LINE. NO BLEEDING NOTED. CANNULA TIP INTACT. DENIES PAIN.
--- NOTE | 2018-05-24 21:53 | NUR ---
INSERTED IV LINE TO LEFT FA #22G. GOOD FLUSH AND BLOOD RETURN. PT TOLERATED PROCEDURE WELL.
[2018-05-24] MEDS: GENTAMICIN 200 MG in NACL 0.9% 100 ML IV SCH (23:51)
[2018-05-25] VITALS: BP 139/84
--- NOTE | 2018-05-25 | NUR ---
STARTED NEW BAG OF VITAL AF 1.2. NO RESP DISTRESS NOTED. HOB ELEVATED. CALL LIGHT WITHIN REACH.
[2018-05-25] MEDS: HYDRAGUARD CREAM TP SCH ×2 (00:29→13:15)
--- NOTE | 2018-05-25 02:35 | NUR ---
PT AWAKE. LINEN CHANGED. REPOSITIONED PT Q2HRS. PT KEPT DRY AND COMFORTABLE.
[2018-05-25 04:00] VITALS: BP 142/77
[2018-05-25] MEDS: NACL 0.9% 1,000 ML IV SCH ×2 (04:15→23:56)
[2018-05-25] MEDS: BRIMONIDINE TARTRATE 0.2% OP 5 ML BTL LEFT EYE SCH ×3 (04:52→20:14)
--- NOTE | 2018-05-25 04:55 | NUR ---
SUCTIONED EXCESSIVE ORAL SECRETIONS. PT CLEANED AND CHANGED, REPOSITIONED Q2HRS. NO DISTRESS NOTED. PT KEPT DRY AND COMFORTABLE.
[2018-05-25] MEDS: INSULIN LISPRO SLIDING SCALE 100 UNITS/ML VIAL SUBQ PRN ×3 (05:54→20:17)
[2018-05-25] MEDS: BLOOD GLUCOSE MONITORING 1 DEV DEV FS SCH ×4 (06:20→20:14)
--- NOTE | 2018-05-25 06:20 | NUR ---
BLOOD SUGAR CHECKED 196. 2 UNITS OF HUMALOG GIVEN SUBQ.
[2018-05-25] MEDS: HYDROcodone/APAP 5/325 MG 1 TAB TAB PO PRN ×2 (06:42→17:24)
--- NOTE | 2018-05-25 07:25 | NUR ---
ENDORSED PT TO DAY SHIFT NURSE. PT IN STABLE CONDITION.
--- NOTE | 2018-05-25 07:30 | NUR ---
RECEIVED REPORT FROM PM NURSE. PT IS TRACH TO VENT WITH FIO2 24 %,VT 450, RR 12, AND PEEP 5. O2 SAT 96%. NO RESP DISTRESS NOTED. NO C/O PAIN. ABLE TO FOLLOW SIMPLE COMMANDS. PT HAS G-TUBE IN PLACE RUNNING VITAL AF AT 65 MLS/HR TOLERATING FEEDING WELL. RECTAL TUBE IN PLACE DRAINING DARK GREENISH STOOL IN THE BAG. IV TO LET HAND #24G, NS AT 50 ML/HR, INFUSING WELL. PT HAS SKIN TEAR ON RIGHT LOWER LEG. CALL LIGHT WITHIN REACH, POC EXPLAINED TO PT, PT VERBALIZED UNDERSTANDING, WILL CONTINUE TO MONITOR.
[2018-05-25] MEDS: ALBUTEROL SULFATE/IPRATROPIU 3 ML SOL IH SCH ×3 (07:40→18:53)
[2018-05-25 08:00] VITALS: BP 154/91
[2018-05-25] MEDS: CLINDAMYCIN PHOS 600MG/D5W PM 50 ML IV SCH ×3 (08:22→23:02)
[2018-05-25] MEDS: LACTULOSE 20 GM/30 ML UDC PO SCH (08:24)
[2018-05-25] MEDS: DOCUSATE 100 MG/10 ML UDC PO SCH ×2 (08:24→20:15)
[2018-05-25] MEDS: PANTOPRAZOLE 40 MG INJ VIAL IVP SCH (08:25)
[2018-05-25] MEDS ORDERED: NITROGLYCERIN 0.4 MG TAB SL PRN (08:25)
[2018-05-25] MEDS: FUROSEMIDE 40 MG/5 ML ORAL SOL UDC GT SCH (08:25)
[2018-05-25] MEDS: FERROUS SULFATE 300 MG/5 ML UDC GT SCH (08:25)
[2018-05-25] MEDS: GLIMEPIRIDE 2 MG TAB GT SCH (08:26)
[2018-05-25] MEDS: metFORMIN 500 MG TAB GT SCH ×2 (08:26→20:14)
[2018-05-25] MEDS: LACTOBACILLUS RHAMNOSUS GG 1 EACH CAP PEG SCH (08:26)
[2018-05-25] MEDS: ATENOLOL 25 MG TAB GT SCH (08:27)
[2018-05-25] MEDS: ASCORBIC ACID 500 MG TAB PO SCH (08:27)
[2018-05-25] MEDS: LISINOPRIL 20 MG TAB GT SCH (08:28)
[2018-05-25] MEDS: ASPIRIN 81 MG TAB.CHEW GT SCH (08:28)
[2018-05-25] MEDS ORDERED: KETOROLAC 15 MG/ML VIAL IVP SCH (09:00)
[2018-05-25] MEDS ORDERED: MAG SULF 2000 MG/WATER PREMIX 50 ML IV ONE (09:20)
[2018-05-25] MEDS ORDERED: KCL 20 MEQ/WATER INJ PREMIX 100 ML IV SCH (09:30)
--- NOTE | 2018-05-25 09:30 | NUR ---
NOTIFIED DR. DRIVER , THE K LEVEL FOR TODAY IS NOT UPDATED YET. PER DR. ROONEY, HOLD K- RIDER.
[2018-05-25 10:09] LABS: BASOPHILS % (AUTO) 0.3 % (0.0-2.0); EOSINOPHILS # (AUTO) 0.1 K/uL (0-0.4); HEMATOCRIT 29.9 % (36-52); HEMOGLOBIN 9.5 g/dL (12.0-18.0); LYMPHOCYTES # (AUTO) 1.9 K/uL (2.0-11.5); LYMPHOCYTES % (AUTO) 12.8 % (20.5-51.1); MEAN CORPUSCULAR HEMOGLOBIN 26 pg (27-31); MEAN CORPUSCULAR HGB CONC 32 g/dL (33-37); MEAN CORPUSCULAR VOLUME 80.8 fL (80-94); MONOCYTES # (AUTO) 1.3 K/uL (0.8-1.0); MONOCYTES % (AUTO) 8.9 % (1.7-9.3); NEUTROPHILS # (AUTO) 11.2 K/uL (1.8-7.7); PLATELET COUNT (AUTO) 561 K/uL (140-450); RED CELL DISTRIBUTION WIDTH 19.4 % (11.6-13.7); WHITE BLOOD COUNT (AUTO) 14.6 K/uL (4.8-10.8)
[2018-05-25 10:35] LABS: CARBON DIOXIDE 27.6 mmol/L (21-32); CHLORIDE 100 mmol/L (98-107); CREATININE 0.6 mg/dL (0.7-1.3); GLUCOSE 226 mg/dL (74-106); POTASSIUM 3.6 mmol/L (3.5-5.1); SODIUM SERUM 132 mmol/L (136-145); UREA NITROGEN, BLOOD 17 mg/dL (7-18)
[2018-05-25 10:40] LABS: MAGNESIUM 1.6 mg/dL (1.8-2.4)
--- NOTE | 2018-05-25 11:20 | NUR ---
PT AWAKE, ALERT, RESTING IN BED QUIETLY. NO S/S OF RESPIRATORY DISTRESS NOTED.
[2018-05-25] MEDS ORDERED: LORazepam 2 MG/ML VIAL IVP SCH (11:30)
--- NOTE | 2018-05-25 11:35 | NUR ---
PT SUCTIONED OBTAINED SMALL AMOUNT OF THICK WHITE SECRETIONS, AIRWAY IS PATENT AND TRACH IS SECURE. TP IS AGITATED HITTING CALL LIGHT ON BED RAILING. PT TACHYPNEIC AT THIS TIME. SPO2 97%. WILL CONTINUE TO MONITOR.
[2018-05-25] MEDS: MAGNESIUM SULFATE 1GM in DEXTROSE 5% 100 ML PREMIX IV SCH ×2 (11:53→13:14)
[2018-05-25 12:00] VITALS: BP 143/87
--- NOTE | 2018-05-25 13:50 | NUR ---
PT PULL OUT IV TO LEFT HANDS, EXPLAINED TO PT NOT TO PULL OUT IV, PT NODDED HIS HEAD. WILL INSERT A NEW IV
--- NOTE | 2018-05-25 14:00 | NUR ---
Credit Historian Notes: I Called [facility] at [phone] and spoke to Esthela from admissions department about having Patient ready for discharge today or when facility has an isolation bed Available. Per Esthela Patient is able to return to their facility however; she stated that they do not have an Isolation bed available at these time. Per Esthela She will be talking to her infection control staff and will be calling me back to discuss and follow up with any other options or needs for patient at discharge.
--- NOTE | 2018-05-25 14:20 | NUR ---
INSERTED NEW IV TO RIGHT HAND # 22. INTACT NAD PATENT.
[2018-05-25 16:00] VITALS: BP 140/85
--- NOTE | 2018-05-25 17:00 | NUR ---
PT PULLED OUT IV AND NEW IV INSERTED TO RIGHT HAND #22
[2018-05-25] MEDS ORDERED: LORazepam 2 MG/ML VIAL IM/IVP SCH (17:14)
--- NOTE | 2018-05-25 17:34 | NUR ---
PT AGITATED AT THIS TIME TRYING TO PULL VENTILATOR TUBING. VENT ALARMS REMAIN ON AND FUNCTIONING. TRACH REMAINS SECURE WITH A PATENT AIRWAY. NURSE BEDSIDE.
--- NOTE | 2018-05-25 18:45 | NUR ---
STARTED PT ON RESTRAIN AT 1720, AT 1800 PT SLEEPING SO REMOVED RESTRAIN, CHARGE NURSE AWARE. AT 1845 WHILE MAKING ROUNDS, FOUND PT TRYING TO REMOVE TRACK TO VENT TUBE, RESTARTED PT ON RESTRAIN.
--- NOTE | 2018-05-25 19:05 | NUR ---
Received pt stable on vent support at documented settings, suctioned small amounts of thin white secretions, hhn tx given, tolerated well, no resp distress or SOB noted at this time, Portex 6 trach secured/patent/midline, alarms set and audible, ambu bag at bedside, vent plugged into red outlet, pulse ox on, will cont to monitor.
--- NOTE | 2018-05-25 19:15 | NUR ---
BEDSIDE REPORT RECEIVED FROM ANMOL JAVED. PT IN BED, TRAC TO VENT, VENTILATOR SETTINGS FIO2 24%, TIDAL VOLUME 450, RR 12, AND PEEP 5, PT SHOWS NO RESPIRATORY DISTRESS, RESPIRATIONS ARE EVEN AND UNLABORED. IV IN RIGHT HAND, 22 G, PATENT, DRESSING SECURED WITH GAUZE, INFUSING NS AT 50 ML/HR. G-TUBE IN LEFT UPPER QUADRANT, INFUSING VITAL AF 1.2 OBDULIA AT 65 ML/HR, NO RESIDUALS ASPIRATED, DRESSING AROUND G-TUBE CHANGED AND SECURED, HOB AT [address]ES[address] RECTAL TUBE IN PLACE, DRAINING DARK GREEN LIQUID STOOL, COLLECTED BAG SECURED TO BED. NOTED WRIST RESTRAINTS ON PT, WILL CONTINUE TO MONITOR Q2H AND REASSESS CIRCULATION AND CONTINUED NEED FOR RESTRAINTS. CALL LIGHT WITHIN REACH, BED IN LOWEST POSITION WILL CONTINUE TO MONITOR.
--- NOTE | 2018-05-25 19:15 | NUR ---
REPORT GIVEN TO PM NURSE , PT VITALS STABLE AT THIS MOMENT.
[2018-05-25 20:00] VITALS: BP 144/90
[2018-05-25] MEDS: LATANOPROST 0.005% OP 2.5 ML BTL LEFT EYE SCH (20:15)
--- NOTE | 2018-05-25 22:00 | NUR ---
PT PULLED OUT RECTAL TUBE. PT ATTEMPTED TO PULL OUT VENT. REAPPLIED WRIST RESTRAINTS. WILL REMOVE Q12H FOR 15 MIN AND ASSESS CIRCULATION AND CONTINUED NEED FOR RESTRAINTS. WILL CONTINUE TO MONITOR.
[2018-05-25] MEDS ORDERED: HALOPERIDOL IM 5 MG/ML VIAL IM PRN (22:25)
--- NOTE | 2018-05-25 22:42 | NUR ---
NOTIFIED DR MADDEN THAT PT REMOVED RECAL TUBE. EXPLAINED THAT PT IS AGITATED AND CONTINUING TO ATTEMPT TO REMOVE IV AND TRAC. ORDER FOR HALOPERIDOL 1 ML VIA IVP Q6H. WILL GIVE NOW FOR AGITATION. WILL CONTINUE TO MONITOR. Addendum: 05/26/18 at 0028 by Sandy Franco RN DR MADDEN ORDERED TO RE-INSERT RECTAL TUBE. RECTAL TUBE REINSERTED AND SECURED TO BED. WILL CONTINUE TO MONITOR.
[2018-05-25] MEDS: GENTAMICIN 200 MG in NACL 0.9% 100 ML IV SCH (23:01)
[2018-05-26] VITALS: BP 150/91
--- NOTE | 2018-05-26 | NUR ---
REMOVED WRIST RESTRAINTS, PT ATTEMPTED TO PULL OUT IV IN RIGHT HAND. EXPLAINED TO PT PURPOSE OF IV THERAPY AND ACCESS FOR IV MEDICATIONS. ATTEMPTED TO DISTRACT PT WITH TV. PT CONTINUED TO ATTEMPT TO PULL OUT IV. REAPPLIED WRIST RESTRAINTS. WILL CONTINUE TO MONITOR AND REMOVE WRIST RESTRAINTS Q2H FOR 15 MINS AND REASSES CIRCULATION AND CONTINUED NEED FOR RESTRAINTS.
[2018-05-26] MEDS: HYDRAGUARD CREAM TP SCH ×2 (00:20→13:52)
--- NOTE | 2018-05-26 00:30 | NUR ---
HIGH PRESSURE ALARM WENT OFF, SUCTIONED PT. PT MORE COMFORTABLE AFTER SUCTIONING.
--- NOTE | 2018-05-26 02:00 | NUR ---
REMOVED WRIST RESTRAINTS, PT CONTINUES TO ATTEMPT TO PULL OUT IV IN RIGHT HAND AND TRAC TUBING. EXPLAINED TO PT PURPOSE OF IV THERAPY FOR ACCESS TO IV MEDICATIONS AND TRAC FOR BREATHING. ATTEMPTED TO DISTRACT PT WITH TV AND CONVERSATION. PT CONTINUED TO ATTEMPT TO PULL OUT LINES AND TUBING. REAPPLIED WRIST RESTRAINTS. WILL CONTINUE TO MONITOR AND REMOVE WRIST RESTRAINTS Q2H FOR 15 MINS AND REASSESS CIRCULATION AND CONTINUED NEED FOR RESTRAINTS.
--- NOTE | 2018-05-26 02:15 | NUR ---
PT GOT OUT OF WRIST RESTRAINTS AND REMOVED RECTAL TUBE. WILL NOTIFY .
--- NOTE | 2018-05-26 02:29 | NUR ---
PICTURE OF RIGHT KNEE SKIN TEAR PLACED IN CHART. WILL CONTINUE TO MONITOR SKIN INTEGRITY.
--- NOTE | 2018-05-26 02:30 | NUR ---
SUCTIONED PTS MOUTH, ORAL CARE PROVIDED, WILL CONTINUE TO MONITOR.
[2018-05-26] MEDS: HYDROcodone/APAP 5/325 MG 1 TAB TAB PO PRN ×4 (03:06→23:38)
--- NOTE | 2018-05-26 03:06 | NUR ---
PT C/O PAIN, WILL MEDICATE ACCORDING TO MD ORDER.
[2018-05-26 04:00] VITALS: BP 144/85
--- NOTE | 2018-05-26 04:00 | NUR ---
REMOVED WRIST RESTRAINTS FOR 15 MINS, NO CHANGE IN CONDITION. REAPPLIED WRIST RESTRAINTS. WILL CONTINUE TO MONITOR AND REMOVE WRIST RESTRAINTS Q2H FOR 15 MINS AND REASSESS CIRCULATION AND CONTINUED NEED FOR RESTRAINTS.
[2018-05-26] MEDS: BRIMONIDINE TARTRATE 0.2% OP 5 ML BTL LEFT EYE SCH ×3 (04:35→20:51)
--- NOTE | 2018-05-26 05:00 | NUR ---
D/C WRIST RESTRAINTS. TOTAL TIME 5.8 HOURS WITH RESTRAINTS ON. SKIN AND CIRCULATION WITHIN NORMAL LIMITS. CALL LIGHT WITHIN REACH.
--- NOTE | 2018-05-26 05:20 | NUR ---
NOTIFIED DR ALCALA REGARDING 2ND ATTEMPT TO RE-INSERT RECTAL TUBE WAS UNSUCCESSFUL. DR STATED "OKAY".
[2018-05-26] MEDS: BLOOD GLUCOSE MONITORING 1 DEV DEV FS SCH ×4 (06:41→21:58)
[2018-05-26] MEDS: INSULIN LISPRO SLIDING SCALE 100 UNITS/ML VIAL SUBQ PRN ×4 (06:46→21:03)
[2018-05-26] MEDS: ALBUTEROL SULFATE/IPRATROPIU 3 ML SOL IH SCH ×3 (07:02→19:01)
--- NOTE | 2018-05-26 07:05 | NUR ---
ENDORSED PATIENT TO DAY SHIFT NURSE MASHA PATIENT STABLE.
--- NOTE | 2018-05-26 07:11 | NUR ---
RCV'D PT ON MECHANICAL VENTILATION WITH CHARTED SETTINGS. PT IS TRACHED WITH PORTEX 6. TRACH IS IN PLACE AND SECURED. VENT IS CONNECTED TO RED OUTLET. ALARMS AUDIBLE. ALMBU BAG AT BEDSIDE. HHN TX GIVEN WITH NO ADVERSE REACTION. PT IS AWAKE AND ALERT. PT TRIED HITTING ME WITH PULSEOX. ANMOL HOLLEY AT BEDSIDE. PT KEEPS TAKING OF HIS PULSEOX. RN AWARE. WILL CONTINUE TO MONITOR.
--- NOTE | 2018-05-26 07:12 | NUR ---
RECEIVED REPORT FROM BRAKES INSPECTOR NURSE. PATIENT LYING DOWN IN BED SLEEPING, AROUSABLE BY VOICE. NO DISTRESS NOTED. FLACC 0 AT THIS TIME. ON TRACH TO VENT WITH VENT SETTINGS: FIO2:24%, VT 450, RR:12, PEEP:5 WITH O2 SAT AT 98%. AAOX1, APHASIC, CALM, SKIN COLOR APPROPRIATE TO ETHNICITY, WARM TO TOUCH. SKIN IS INTACT, HAS RIGHT KNEE OLD WOUND SCAR THAT IS HEALED. LUNGS CTA ON ALL LOBES. IV SITE INTACT, PATENT AND INFUSING IVF PER MD ORDERS. REVIEWED PLAN OF CARE WITH PATIENT. REINFORCEMENT NEEDED. SAFETY MEASURES IN PLACE, CALL LIGHT WITHIN REACH. WILL CONTINUE TO MONITOR.
[2018-05-26 08:00] VITALS: BP 119/61
[2018-05-26 08:33] LABS: BASOPHILS % (AUTO) 0.3 % (0.0-2.0); EOSINOPHILS # (AUTO) 0.2 K/uL (0-0.4); EOSINOPHILS % (AUTO) 1.6 % (0.0-4.0); HEMOGLOBIN 8.7 g/dL (12.0-18.0); LYMPHOCYTES # (AUTO) 2.1 K/uL (2.0-11.5); LYMPHOCYTES % (AUTO) 14.9 % (20.5-51.1); MEAN CORPUSCULAR HEMOGLOBIN 26 pg (27-31); MEAN CORPUSCULAR HGB CONC 32 g/dL (33-37); MEAN CORPUSCULAR VOLUME 81.5 fL (80-94); MONOCYTES # (AUTO) 1.6 K/uL (0.8-1.0); MONOCYTES % (AUTO) 11.1 % (1.7-9.3); NEUTROPHILS # (AUTO) 10.2 K/uL (1.8-7.7); NEUTROPHILS % (AUTO) 72.1 % (42.2-75.2); PLATELET COUNT (AUTO) 478 K/uL (140-450); RED BLOOD CELL COUNT(AUTO) 3.32 MIL/uL (4.20-6.10); RED CELL DISTRIBUTION WIDTH 19.7 % (11.6-13.7); WHITE BLOOD COUNT (AUTO) 14.2 K/uL (4.8-10.8)
[2018-05-26] MEDS: LACTULOSE 20 GM/30 ML UDC PO SCH (08:39)
[2018-05-26] MEDS: FUROSEMIDE 40 MG/5 ML ORAL SOL UDC GT SCH (08:39)
[2018-05-26] MEDS: FERROUS SULFATE 300 MG/5 ML UDC GT SCH (08:39)
[2018-05-26] MEDS: DOCUSATE 100 MG/10 ML UDC PO SCH ×2 (08:39→21:00)
[2018-05-26] MEDS: GLIMEPIRIDE 2 MG TAB GT SCH (08:40)
[2018-05-26] MEDS: LACTOBACILLUS RHAMNOSUS GG 1 EACH CAP PEG SCH (08:40)
[2018-05-26] MEDS: ATENOLOL 25 MG TAB GT SCH (08:41)
[2018-05-26] MEDS: ASCORBIC ACID 500 MG TAB PO SCH (08:41)
[2018-05-26] MEDS: ASPIRIN 81 MG TAB.CHEW GT SCH (08:41)
[2018-05-26] MEDS: metFORMIN 500 MG TAB GT SCH ×2 (08:41→20:51)
[2018-05-26] MEDS: PANTOPRAZOLE 40 MG INJ VIAL IVP SCH (08:42)
[2018-05-26] MEDS: LISINOPRIL 20 MG TAB GT SCH (08:42)
[2018-05-26 08:45] LABS: ANION GAP 12.3 (8-16); CARBON DIOXIDE 28.1 mmol/L (21-32); CHLORIDE 102 mmol/L (98-107); CREATININE 0.7 mg/dL (0.7-1.3); GLUCOSE 222 mg/dL (74-106); POTASSIUM 3.4 mmol/L (3.5-5.1); SODIUM SERUM 139 mmol/L (136-145); UREA NITROGEN, BLOOD 17 mg/dL (7-18)
[2018-05-26] MEDS: CLINDAMYCIN PHOS 600MG/D5W PM 50 ML IV SCH ×2 (08:52→17:04)
[2018-05-26 08:54] LABS: MAGNESIUM 1.9 mg/dL (1.8-2.4); PHOSPHORUS 3.2 mg/dL (2.5-4.9)
--- NOTE | 2018-05-26 09:09 | NUR ---
PATIENT LYING DOWN IN BED COMFORTABLY. NO DISTRESS NOTED. FLACC 0 AT THIS TIME. SCHEDULED MEDICATIONS DUE GIVEN. NEW IV LINE STARTED ON LEFT FOREARM #22 DUE TO PATIENT PULLING OUT OLD ONE. SAFETY MEASURES IN PLACE, CALL LIGHT WITHIN REACH. WILL CONTINUE TO MONITOR.
[2018-05-26] MEDS ORDERED: GENTAMICIN PER PHARMACY MC PRN (11:00)
[2018-05-26 12:00] VITALS: BP 141/85
--- NOTE | 2018-05-26 13:53 | NUR ---
PATIENT LYING DOWN IN BED WATCHING TV. PULLED OUT IV LINE AGAIN. NEW IV LINE STARTED ON RIGHT FOREARM. SCHEDULED MEDICATIONS DUE GIVEN. SAFETY MEASURES IN PLACE, CALL LIGHT WITHIN REACH. WILL CONTINUE TO MONITOR.
[2018-05-26 16:00] VITALS: BP 140/77
--- NOTE | 2018-05-26 16:00 | NUR ---
ASSISTED PRINTING SALES REPRESENTATIVE IN CLEANING AND REPOSITIONING PATIENT. CONDITION UNCHANGED. WILL CONTINUE TO MONITOR.
--- NOTE | 2018-05-26 17:13 | NUR ---
PATIENT LYING DOWN IN BED SLEEPING, AROUSABLE BY VOICE. NO DISTRESS NOTED. FLACC 0. SCHEDULED MEDICATIONS DUE GIVEN. SAFETY MEASURES IN PLACE, CALL LIGHT WITHIN REACH. WILL CONTINUE TO MONITOR.
--- NOTE | 2018-05-26 17:43 | NUR ---
PATIENT COMPLAINS OF PAIN, NORCO GIVEN PER MD ORDERS. CONDITION UNCHANGED. WILL CONTINUE TO MONITOR.
--- NOTE | 2018-05-26 18:30 | NUR ---
PATIENT SITTING IN BED WATCHING TV. CONDITION UNCHANGED. WILL CONTINUE TO MONITOR.
--- NOTE | 2018-05-26 19:30 | NUR ---
GAVE REPORT TO EXHIBITION SPECIALIST NURSE FOR CONTINUITY OF CARE. PATIENT IN STABLE CONDITION.
--- NOTE | 2018-05-26 19:31 | NUR ---
RECEIVED REPORT FROM DAYSHIFT NURSE AT BEDSIDE FOR CONTINUITY OF CARE. PT AWAKE AND APHASIC. PT ABLE TO WRITE AND NOD TO YES OR NO QUESTIONS. PT IV NOTED RFA 22G NS 50ML/HR. SKIN NOT INTACT SEE WOUND ASSESSMENT INTERVENTION FOR MORE INFO. PT IS INCONTINENT. BEDBOUND. TRACH TO VENT FI02 28% O2 SAT 100% RR24. NO SOB NO S/S OF DISTRESS ON RA. BED LOWERED CALL LIGHT WITHIN REACH WILL CONTINUE TO MONITOR.
--- NOTE | 2018-05-26 19:45 | NUR ---
PT HAS REMOVED MITTENS. ADVISE PT TO NOT REMOVE IV. PT MOVE HEAD UP AND DOWN NON VERBAL AGREE TO UNDERSTANDING. PT ALSO KEEPS ASKING FOR NORCO, I LET PT KNOW PAIN MED IS NOT DUE YET. WILL FOLLOW UP WITH NONPHARMACOLOGICAL WAYS TO DECREASE PAIN.
[2018-05-26 20:00] VITALS: BP 148/77
[2018-05-26] MEDS: NACL 0.9% 1,000 ML IV SCH (20:00)
[2018-05-26] MEDS: LATANOPROST 0.005% OP 2.5 ML BTL LEFT EYE SCH (20:51)
--- NOTE | 2018-05-26 21:00 | NUR ---
ADMIN MEDS. G-TUBE RESIDUAL <5ML. TOLERATING TUBE FEEDING. WILL CONTINUE TO MONITOR.
[2018-05-26] MEDS: GENTAMICIN 200 MG in NACL 0.9% 100 ML IV SCH (23:38)
[2018-05-27] VITALS: BP 151/84
--- NOTE | 2018-05-27 00:38 | NUR ---
ADMIN PAIN MED 1 HR AGO PT HAS DECREASED PAIN. PAIN MED EFFECTIVE WILL CONTINUE TO MONITOR.
[2018-05-27] MEDS: HYDRAGUARD CREAM TP SCH (01:00)
[2018-05-27] MEDS ORDERED: ZOLPIDEM 5 MG TAB PO PRN (01:45)
--- NOTE | 2018-05-27 02:56 | NUR ---
ADMIN AMBIEN FOR INSOMNIA 1 HR AGO. PT CURRENTLY SLEEPING WILL CONTINUE TO MONITOR.
[2018-05-27 04:00] VITALS: BP 157/80
[2018-05-27] MEDS: BRIMONIDINE TARTRATE 0.2% OP 5 ML BTL LEFT EYE SCH (05:01)
[2018-05-27] MEDS: INSULIN LISPRO SLIDING SCALE 100 UNITS/ML VIAL SUBQ PRN (05:04)
--- NOTE | 2018-05-27 06:50 | NUR ---
STARTED NEW IV IN RFA 22G.
--- NOTE | 2018-05-27 07:20 | NUR ---
RECEIVED REPORT FROM PILE DRIVING TECHNICIAN NURSEBALJIT, AT BEDSIDE. PT AWAKE, ALERT, APHASIC. IV NOTED RFA 22G, PATENT AND INTACT, NS 50ML/HR. SKIN NON-INTACT, SEE WOUND ASSESSMENT FOR DETAILS. PT IS INCONTINENT. BEDBOUND. TRACH TO VENT FI02 24% O2 SAT 100% RR24. NO SOB OR S/S OF DISTRESS NOTED. BED IN LOWEST POSITION, HOB 30 DEGREES, CALL LIGHT WITHIN REACH WILL CONTINUE TO MONITOR.
--- NOTE | 2018-05-27 07:30 | NUR ---
ENDORSED REPORT TO DAYSHIFT NURSE AT BEDSIDE FOR CONTINUITY OF CARE.
--- NOTE | 2018-05-27 07:33 | NUR ---
G TUBE FEEDING STARTED AT 0630 VITAL AF 1.2 OBDULIA 65 ML/HR AND WATER 100ML/HR. WILL CONTINUE TO MONITOR. 5ML RESIDUAL. TOLERATING WELL. Addendum: 05/27/18 at 0736 by Jeannette Hdz RN TIME STARTED IS 0600
[2018-05-27 07:34] LABS: BASOPHILS # (AUTO) 0.1 K/uL (0.00-0.22); BASOPHILS % (AUTO) 0.5 % (0.0-2.0); EOSINOPHILS # (AUTO) 0.4 K/uL (0-0.4); EOSINOPHILS % (AUTO) 2.5 % (0.0-4.0); HEMATOCRIT 29.8 % (36-52); HEMOGLOBIN 9.5 g/dL (12.0-18.0); LYMPHOCYTES # (AUTO) 2.4 K/uL (2.0-11.5); LYMPHOCYTES % (AUTO) 15.1 % (20.5-51.1); MEAN CORPUSCULAR HEMOGLOBIN 26 pg (27-31); MEAN CORPUSCULAR HGB CONC 32 g/dL (33-37); MEAN CORPUSCULAR VOLUME 82.5 fL (80-94); MONOCYTES # (AUTO) 1.4 K/uL (0.8-1.0); MONOCYTES % (AUTO) 8.9 % (1.7-9.3); NEUTROPHILS # (AUTO) 11.4 K/uL (1.8-7.7); PLATELET COUNT (AUTO) 524 K/uL (140-450); RED BLOOD CELL COUNT(AUTO) 3.61 MIL/uL (4.20-6.10); RED CELL DISTRIBUTION WIDTH 20.4 % (11.6-13.7); WHITE BLOOD COUNT (AUTO) 15.7 K/uL (4.8-10.8)
[2018-05-27] MEDS: BLOOD GLUCOSE MONITORING 1 DEV DEV FS SCH (07:36)
--- NOTE | 2018-05-27 07:46 | NUR ---
LATE ENTRY FOR 05/26/18 CM NOTE INQUIRED REGARDING ISOLATION BED AVAILABILITY IN THE FOLLOWING SUB-ACUTE FACILITIES: PER DEBORAH EVANS PH# [phone], NO ISOLATION BED AVAILABLE PER ADRIENNE PH# [phone], NO ISOLATION BED AVAILABLE PER [facility] PH# [phone], NO ISOLATION BED AVAILABLE PER EVELYN [facility]EE[facility]ES [place] PH# [phone], NO ISOLATION BED AVAILABLE PER [facility] PH# [phone], NO ISOLATION BED AVAILABLE PER [facility] PH# [phone], NO ISOLATION BED AVAILABLE
--- NOTE | 2018-05-27 07:46 | NUR ---
RECEIVED ON A [employer] Systems[employer] R860 VENTILATOR PLUGGED INTO RED OUTLET TOLERATING WELL WITHOUT INCIDENT TO A PORTEX DFEN #6 AIRWAY SECURED WITH A JANY TRACH TIE CUFF PRESSURE CHECKED NOTED AMBU BAG AT BEDSIDE AWAKE AND ALERT RESPONSIVE BREATH SOUNDS COARSE RHONCHI BILATERAL WITH GOOD CHEST RISE DEEP TRACHEAL SUCTION FOR LARGE SEMI THICK YELLOW SECRETIONS AIRWAY PATENT OROPHARYNGEAL SUCTION FOR COPIOUS GELATINOUS CLEAR SECRETIONS
[2018-05-27 07:52] LABS: ANION GAP 12.4 (8-16); CHLORIDE 102 mmol/L (98-107); CREATININE 0.6 mg/dL (0.7-1.3); GLUCOSE 200 mg/dL (74-106); POTASSIUM 3.4 mmol/L (3.5-5.1); SODIUM SERUM 138 mmol/L (136-145); UREA NITROGEN, BLOOD 16 mg/dL (7-18)
[2018-05-27 07:57] LABS: MAGNESIUM 1.8 mg/dL (1.8-2.4); PHOSPHORUS 3.1 mg/dL (2.5-4.9)
[2018-05-27 08:00] VITALS: BP 122/77
[2018-05-27] MEDS: HYDROcodone/APAP 5/325 MG 1 TAB TAB PO PRN (08:14)
[2018-05-27] MEDS: ASCORBIC ACID 500 MG TAB PO SCH (08:14)
[2018-05-27] MEDS: FUROSEMIDE 40 MG/5 ML ORAL SOL UDC GT SCH (08:14)
[2018-05-27] MEDS: DOCUSATE 100 MG/10 ML UDC PO SCH (08:15)
[2018-05-27] MEDS: LACTULOSE 20 GM/30 ML UDC PO SCH (08:15)
[2018-05-27] MEDS: FERROUS SULFATE 300 MG/5 ML UDC GT SCH (08:15)
[2018-05-27] MEDS: LACTOBACILLUS RHAMNOSUS GG 1 EACH CAP PEG SCH (08:15)
[2018-05-27] MEDS: ASPIRIN 81 MG TAB.CHEW GT SCH (08:15)
[2018-05-27] MEDS: metFORMIN 500 MG TAB GT SCH (08:15)
[2018-05-27] MEDS: LISINOPRIL 20 MG TAB GT SCH (08:16)
[2018-05-27] MEDS: PANTOPRAZOLE 40 MG INJ VIAL IVP SCH (08:16)
[2018-05-27] MEDS: ATENOLOL 25 MG TAB GT SCH (08:16)
[2018-05-27] MEDS: GLIMEPIRIDE 2 MG TAB GT SCH (08:16)
--- NOTE | 2018-05-27 08:30 | NUR ---
G TUBE RESIDUAL 5 ML. SCHEDULED MEDS GIVEN VIA G TUBE. PT TOLERATED WELL.
--- NOTE | 2018-05-27 09:19 | NUR ---
CM NOTE [facility] PH# [phone] PATIENT IS GOING TO [address] UNDER DR[address] DELEON.
--- NOTE | 2018-05-27 09:23 | NUR ---
NO EVIDENCE OF PULMONARY DISTRESS NOTED AT THIS TIME GOOD CHEST RISE AND AERATION THROUGHOUT LUNG MOREIRA
[2018-05-27] MEDS ORDERED: Gentamicin Per Pharmacy MC (09:27)
[2018-05-27] MEDS ORDERED: LACT10CA PEG (09:27)
[2018-05-27] MEDS ORDERED: CLIN300C2 PO (09:29)
--- NOTE | 2018-05-27 10:10 | NUR ---
BED BATH GIVEN, LINENS HAS BEEN CHANGED. ORAL CARE DONE. SUCTION PERFORMED. PT TOLERATED WELL.
--- NOTE | 2018-05-27 11:00 | NUR ---
G TUBE DRESSING CHANGED, APPLIED Z GUARD TO G TUBE AND PERINEAL AREA, SKIN IS INTACT, ONLY A SMALL SKIN TEAR ON RIGHT LEG. HYDRAGUARD APPLIED TO BLE.
--- NOTE | 2018-05-27 11:15 | NUR ---
REPORT [facility] TO [facility]GEOIS [facility] TO [facility]OM [facility] [address], UNDER CARE OF DR DELEON.
--- NOTE | 2018-05-27 11:20 | NUR ---
[facility] DISCHARGE INSTRUCTIONS AND MEDS TEACHING PROVIDED. PT UNABLE TO COMPREHEND. Addendum: 05/27/18 at 1150 by Placido Cazares RN IV LINE DISCONNECTED, CATH LEFT IN PLACE FOR IV ABX. G TUBE LOCKED.
--- NOTE | 2018-05-27 11:30 | NUR ---
PT HAS BEEN PICKED UP BY [facility] [employer]UAL PROJECT MANAGER. PT IS IN STABLE CONDITION. NO S/S OF RESPIRATORY DISTRESS.
--- NOTE | 2018-05-27 11:40 | NUR ---
CALLED [facility] PHONE NUMBER NOT WORKING. CALLED GURPREET VERDE, LEFT A MESSAGE. MADE HIM AWARE [facility]
--- NOTE | 2018-05-27 11:45 | NUR ---
PATIENT BEING DISCHARGED [facility] AT BEDSIDE Addendum: 05/27/18 at 1146 by Landon Golden RT AWAKE AND ALERT RESPONSIVE NO EVIDENCE OF RESPIRATORY DISTRESS NOTED GOOD EQUAL CHEST RISE
--- NOTE | 2018-05-27 13:13 | NUR ---
[id number] CALLED [facility] AND SPOKE WITH [facility] AND SCHEDULED TRANSPORT WITH RT TO TRANSFER PT BACK TO [facility]. FRE[employer]ED [employer]UM[employer] INSPECTOR TIME IS 8899
== END 2018-05-27 11:45 | DRG 870 ==
LOC: MED 15:54 → MTU 18:55 → MIC 05-16 20:45 → MTU 05-21 18:20
PROVIDERS: ADMIT Family Medicine; ATTEND Family Medicine
PROC: 5A1955Z Respiratory Ventilation, Greater than 96 Consecutive Hours (ICD-10-PCS; principal; 2018-05-15)
DX: A41.9 Sepsis, unspecified organism (principal); J69.0 Pneumonitis due to inhalation of food and vomit; N17.0 Acute kidney failure with tubular necrosis; J96.21 Acute and chronic respiratory failure with hypoxia; E87.1 Hypo-osmolality and hyponatremia; D68.59 Other primary thrombophilia; Z99.11 Dependence on respirator [ventilator] status; E44.0 Moderate protein-calorie malnutrition; J98.11 Atelectasis; K86.3 Pseudocyst of pancreas; K56.7 Ileus, unspecified; K56.609 Unspecified intestinal obstruction, unspecified as to partial versus complete obstruction; E83.41 Hypermagnesemia; E11.65 Type 2 diabetes mellitus with hyperglycemia; K21.9 Gastro-esophageal reflux disease without esophagitis; E86.0 Dehydration; K56.41 Fecal impaction; H40.9 Unspecified glaucoma; I10 Essential (primary) hypertension; E87.5 Hyperkalemia; J44.9 Chronic obstructive pulmonary disease, unspecified; F41.9 Anxiety disorder, unspecified; K86.9 Disease of pancreas, unspecified; E83.39 Other disorders of phosphorus metabolism; E11.40 Type 2 diabetes mellitus with diabetic neuropathy, unspecified; E02 Subclinical iodine-deficiency hypothyroidism; D63.8 Anemia in other chronic diseases classified elsewhere; D47.3 Essential (hemorrhagic) thrombocythemia; Y95 Nosocomial condition; B96.5 Pseudomonas (aeruginosa) (mallei) (pseudomallei) as the cause of diseases classified elsewhere; E87.6 Hypokalemia; Z85.21 Personal history of malignant neoplasm of larynx; Z93.1 Gastrostomy status; Z79.2 Long term (current) use of antibiotics; Z79.1 Long term (current) use of non-steroidal anti-inflammatories (NSAID); Z79.82 Long term (current) use of aspirin; Z79.84 Long term (current) use of oral hypoglycemic drugs; Z79.4 Long term (current) use of insulin; Z79.899 Other long term (current) drug therapy; Z93.0 Tracheostomy status; Z87.891 Personal history of nicotine dependence; Z68.25 Body mass index [BMI] 25.0-25.9, adult; Z22.322 Carrier or suspected carrier of Methicillin resistant Staphylococcus aureus; Z74.01 Bed confinement status; Z86.14 Personal history of Methicillin resistant Staphylococcus aureus infection
CPT/HCPCS: 36415; 71045; 80048; 80053; 80170; 81003; 82150; 82272; 82550; 82553; 82607; 82728; 82746; 82948; 83036; 83540; 83605; 83690; 83735; 83874; 83880; 84100; 84439; 84443; 84484; 85025; 85045; 85610; 85730; 87040; 87070; 87081; 87086; 87186; 87205; 89220; 93005; 94003; 94640; 96374; 96375; 99291; C9113; J0610; J1580; J1630; J1815; J1885; J2060; J2543; J2916; J3370; J3475; J3480; J3490; J7030; J7060; J7613; J7620; J7644; Q0092